=== PATIENT | female | born 1995 | race Caucasian/White ===

== ENCOUNTER → 2022-01-27 | Outpatient (CLI) | payer OTHER, SELFPAY ==
[2022-01-27 15:43] LABS: Absolute Lymphocyte Count 1.95 X10^3/uL (0.83-4.51); Basophil# 0.02 X10^3/uL; Basophil% 0.3 % (0-1); Eosinophil# 0.05 X10^3/uL; Eosinophils% 0.7 % (0-5); Hematocrit 38.3 % (37-47); Lymphocyte # 1.95 X10^3/ul (0.83-4.51); Lymphocyte % 25.8 % (19-41); Mean Corp Hgb Conc 33.9 g/dL (32-36); Mean Corpuscular Volume 88.2 fL (81-99); Mean Platelet Vol. 9.5 fl (6.2-12.0); Monocyte% 6.6 % (0-10); NRBC Flagged by Analyzer 0 % (0-5); Neutrophil # 5.01 X10^3/uL (2.7-7.7); Neutrophil % 66.3 % (47-70); Platelet Count 273 K/mm3 (150-450); RBC Distribution Width CV 13.6 % (11.6-14.6); RBC Distribution Width SD 44.2 fl (35.1-43.9); Red Blood Count 4.34 M/mm3 (4.2-5.4); White Blood Count 7.6 K/mm3 (4.4-11.0)
[2022-01-27 16:36] LABS: NATERA MAILED SPECIMEN
[2022-01-27 16:41] LABS: Amphetamine Urine VISTA NEGATIVE (<1000 ng/mL); Barbiturate Urine VISTA NEGATIVE (< 200 ng/mL); Benzodiazepine Urine VISTA NEGATIVE (< 200 ng/mL); Cocaine Urine VISTA NEGATIVE (< 300 ng/mL); Ecstacy Urine VISTA NEGATIVE (< 500 ng/mL); Methadone Urine VISTA NEGATIVE (< 300 ng/mL); PCP Urine VISTA NEGATIVE (< 25 ng/mL); THC Urine VISTA NEGATIVE (< 50 ng/mL); Vista UDS pH Range 7
[2022-01-27 16:53] LABS: HIV - WCH Non-Reactive (Nonreactive); Hepatitis B Surface Antigen Non-Reactive (Nonreactive); Hepatitis C Antibody Non-Reactive (Nonreactive); Rubella IgG Reactive (Nonreactive); Syphilis Antibodies Non-reactive
[2022-01-31 22:06] LABS: Chlamydia By Nucleic Acid AMP Negative (Negative)
[2022-02-01 15:12] LABS: Gonococcus By Nucleic Acid AMP Negative (Negative)
== END | disposition home or self-care (01) ==
PROVIDERS: PCP Internal Medicine; Referring Provider Obstetrics & Gynecology; Visit Provider Obstetrics & Gynecology
DX: Z34.90 Encounter for supervision of normal pregnancy, unspecified, unspecified trimester (principal)
CPT/HCPCS: 36415; 80307; 85025; 86703; 86762; 86780; 86803; 86850; 86900; 86901; 87086; 87340; 87491; 87591

== ENCOUNTER → 2022-05-20 | Outpatient (CLI) | payer OTHER, SELFPAY ==
[2022-05-20 15:41] LABS: Absolute Lymphocyte Count 1.57 X10^3/uL (0.83-4.51); Absolute Neutrophil Count 6.6 X10^3/uL (2.0-7.7); Basophil# 0.02 X10^3/uL; Basophil% 0.2 % (0-1); Eosinophil# 0.05 X10^3/uL; Eosinophils% 0.6 % (0-5); Hematocrit 34.6 % (37-47); Hemoglobin 11.7 g/dL (12.0-15.0); Lymphocyte # 1.57 X10^3/ul (0.83-4.51); Lymphocyte % 17.7 % (19-41); Mean Corp Hgb Conc 33.8 g/dL (32-36); Mean Corpuscular Hgb 30.5 pg (27.0-32.0); Mean Corpuscular Volume 90.3 fL (81-99); Mean Platelet Vol. 9.7 fl (6.2-12.0); Monocyte# 0.61 X10^3/uL; Monocyte% 6.9 % (0-10); NRBC Flagged by Analyzer 0 % (0-5); Neutrophil % 74.2 % (47-70); Platelet Count 250 K/mm3 (150-450); RBC Distribution Width CV 12.7 % (11.6-14.6); Red Blood Count 3.83 M/mm3 (4.2-5.4); White Blood Count 8.9 K/mm3 (4.4-11.0)
[2022-05-20 16:05] LABS: Glucose Challenge Gest 1H 50g 130 mg/dL (70-140)
[2022-05-20 16:14] LABS: Vitamin B12 204 pg/mL (211-911)
[2022-05-20 16:38] LABS: HIV - WCH Non-Reactive (Nonreactive); Syphilis Antibodies Non-reactive
[2022-05-20 17:10] LABS: Iron 157 ug/dL (50-170)
== END | disposition home or self-care (01) ==
LOC: LAB 15:03
PROVIDERS: Obstetrics & Gynecology; PCP Internal Medicine; Visit Provider Nurse Practitioner Women's Health
DX: Z34.90 Encounter for supervision of normal pregnancy, unspecified, unspecified trimester (principal)
CPT/HCPCS: 36415; 82607; 82950; 83540; 85025; 86703; 86780

== ENCOUNTER → 2022-07-27 | Outpatient (CLI) | payer OTHER, SELFPAY ==
--- NOTE | 2022-07-27 13:30 | US_ITS ---
STUDY: SECOND AND THIRD TRIMESTER OBSTETRICAL ULTRASOUND - LIMITED REASON FOR EXAM: Female, 27 years old routine survey, growth assessment LMP: 11/20/2021 PRIOR ULTRASOUND: None. TECHNIQUE: Transabdominal TECHNICAL QUALITY: Adequate. FINDINGS: There is a single intrauterine fetus. The fetus is in a cephalic presentation. There is demonstrated cardiac activity with a heart rate of 143 bpm. There is a normal amniotic fluid volume. The largest amniotic fluid pocket measures 3 x 3.9 cm. The amniotic fluid index (ANTONIO) is 10.47 cm. The placenta is anterior in location and is not low lying. There are Grade 1 placental changes. The cervix measures 3.3 cm in length. BIOMETRY: BPD: 9.29 cm: 37 weeks, 5 days HC: 32.59 cm: 37 weeks, 0 days AC: 30.94 cm: 34 weeks, 6 days FL: 6.95 cm: 35 weeks, 5 days age by current US: 36 weeks, 3 days. MORENA by current US: 08/21/2022. Estimated weight: 2751 grams, +/- 413 grams, 53 percentile. US/OB Limited With Biometrics IMPRESSION: Single live intrauterine at 36 weeks, 3 days by current ultrasound with MORENA of 08/21/2022. Heart rate 143 bpm. No suspicious sonographic findings Electronically Signed: Jimmie Young MD at 15:17 EDT ,
== END | disposition home or self-care (01) ==
LOC: US 13:29
PROVIDERS: PCP Internal Medicine; Referring Provider Advanced Practice Midwife; Visit Provider Advanced Practice Midwife
DX: O26.849 Uterine size-date discrepancy, unspecified trimester (principal)
CPT/HCPCS: 76816

== ENCOUNTER → 2022-08-03 | Outpatient (CLI) | payer OTHER, SELFPAY | END | disposition home or self-care (01) | LOC: LABSPEC 16:57 | PROVIDERS: PCP Internal Medicine; Visit Provider Obstetrics & Gynecology | DX: Z34.00 Encounter for supervision of normal first pregnancy, unspecified trimester (principal) | CPT/HCPCS: 87081 ==

== ENCOUNTER → 2022-08-23 | Outpatient (CLI) | payer OTHER, SELFPAY ==
--- NOTE | 2022-08-23 14:30 | US_ITS ---
EXAM: US , LIMITED CLINICAL INDICATION: fundal height low for dates TECHNIQUE: Real-time limited ultrasound of the maternal uterus with image documentation. This report was created using Everplans report generation technology. COMPARISON: None. FINDINGS: FETUS: There is an intrauterine gestation. GESTATIONAL AGE: Gestational age 39 weeks 3 days. MORENA: MORENA 08/27/2022. EFW: Estimated weight 3553 g. BPD: Biparietal diameter 9.5 cm age 38 weeks 5 days. HC: Head circumference 33.2 cm age 38 weeks 0 days. AC: Abdominal circumference 34.3 cm age 38 weeks 2 days. FL: Femur length 7.6 cm age 39 weeks 0 days. POSITION: The fetus is in the cephalic position. HEART RATE: heart rate 140 bpm. PLACENTA: The placenta is anterior. AMNIOTIC FLUID: ANTONIO measures 7.6 cm. CERVIX: The cervix was not visualized. US/OB Limited With Biometrics IMPRESSION: Intrauterine gestation with an average ultrasound age of 38 weeks 3 days and ultrasound estimated due date of 09/03/2022. heart rate is 140 bpm. Electronically Signed: Tashi Carter MD at 23:57 EDT ,
== END | disposition home or self-care (01) ==
LOC: US 14:28
PROVIDERS: PCP Internal Medicine; Referring Provider Obstetrics & Gynecology; Visit Provider Obstetrics & Gynecology
DX: O26.843 Uterine size-date discrepancy, third trimester (principal); Z3A.00 Weeks of gestation of pregnancy not specified
CPT/HCPCS: 76816

== ENCOUNTER 2022-08-31 05:53 | Inpatient (IN) | payer OTHER, SELFPAY ==
[2022-08-31] VITALS (44 sets, daily range): BP systolic 108–141; BP diastolic 52–87; PULSE 59–112; TEMP 36.3–37.3; O2SAT 89–100; BMI 28.1
[2022-08-31 05:52] LABS: ROM Internal Control Test YES-OK TO RESULT pt. (Internal QC); ROM Patient Test POSITIVE (Negative)
[2022-08-31] MEDS: Lactated Ringers 1,000 ML 50 ML IV (06:25)
[2022-08-31 06:42] LABS: Absolute Lymphocyte Count 1.64 X10^3/uL (0.83-4.51); Absolute Neutrophil Count 6.6 X10^3/uL (2.0-7.7); Basophil# 0.02 X10^3/uL; Basophil% 0.2 % (0-1); Eosinophil# 0.05 X10^3/uL; Eosinophils% 0.6 % (0-5); Hematocrit 35.5 % (37-47); Lymphocyte # 1.64 X10^3/ul (0.83-4.51); Lymphocyte % 18.1 % (19-41); Mean Corp Hgb Conc 33.8 g/dL (32-36); Mean Corpuscular Hgb 29.7 pg (27.0-32.0); Mean Corpuscular Volume 87.9 fL (81-99); Mean Platelet Vol. 11.2 fl (6.2-12.0); Monocyte# 0.69 X10^3/uL; Monocyte% 7.6 % (0-10); NRBC Flagged by Analyzer 0 % (0-5); Neutrophil % 72.9 % (47-70); Platelet Count 194 K/mm3 (150-450); RBC Distribution Width CV 12.6 % (11.6-14.6); RBC Distribution Width SD 40.9 fl (35.1-43.9); Red Blood Count 4.04 M/mm3 (4.2-5.4); White Blood Count 9.1 K/mm3 (4.4-11.0)
--- NOTE | 2022-08-31 08:11 | HP.PCM.OB_ITS ---
HPI - General General Date of Admission: 08/31/22 HPI Narrative MITZI SANTA, is a 27 y/o @ 40 weeks 4 days who presents to L&D after rupture of membranes at 2:30 am. She denies painful contractions currently. Nurses checked her cervix at 5:30 and she was 1 cm dilated and not micki. Maternal Data Information MORENA Calculator Estimated Delivery Date Method Current WG Current Estimate 08/27/22 LMP (Certain) 40w 4d PFSH PFSH Medical History History of vaccination against human papillomavirus Hx of ulcerative colitis MRSA infection Home Medications multivitamin no.47-iron fum 27 mg-folate no.1 1 mg-dha 300 mg capsule (PNV-DHA) 1 cap PO DAILY 01/21/22 [History Last Taken 08/30/22 08:00] vitamin B12 0.5 mg-folic acid 1 mg tablet 1 tab PO DAILY 08/31/22 [History Last Taken Unknown] Allergy/AdvReac Type Severity Reaction Status Date / Time No Known Allergies Allergy Verified 08/31/22 05:12 Family History Grandfather Colon cancer, Onset Age: 50 Paternal Grandmother Cancer uterine Surgical History History of colonoscopy Hx of wisdom tooth extraction Social History adopted: No household members: spouse housing: house current occupational status: employed current occupation: Teacher current occupational exposures/hazards: No pets and animals: Yes pets and animals: dog(s) history of recent travel: Yes (November) out of state: Yes out of country: No sexually active: Yes Smoking Status: Never smoker alcohol intake: former details: socially prior to substance use type: does not use well-balanced diet: daily or most days caffeine: No eating out: 1-3 times/week during the past year weight has: remained stable what type of physical activity do you participate in: walking, running and yoga frequency: daily daniel/buddhism: Lutheran seatbelt use: always do you feel safe at home: Yes additional social history: Spouse Meir- Marcus Dominique History 1 Elective abortions Hx Para 0 Spontaneous abortions Hx # Term Pregnancies Ectopic pregnancies Hx # Pregnancies Multiple births # of living children Visit Details Expected Delivery Route/Plan Labor Preferences- CB/BF classes: Today labor support person: Meir labor intervention preferences: [] pain management options preferred: epidural if needed cut cord/dad catch: cord : Yes PP control planned: discussed discussed possible routes of delivery and associated risks: [] special requests: [] Plans Covid status: discussed Flu vaccine: discussed Tdap vaccine: given Rhogam: NA LARC form signed: done movement and labor precautions reviewed. Problem list reviewed and updated with the most current plan of care details and appropriate orders placed. Relevant counseling for the gestational age provided. Continue routine care and follow up unless otherwise noted in visit notes/problem list details OB Flowsheet Initial Weight: Not Recorded Date -?-?-?-?-?-?-?-?-?-?-?-?- EGA Weight BP Urine Prot -?-?-?-?-?-?-?-?-?-?-?-?- Glucose FHR FuHt Pres Dilation -?-?-?-?-?-?-?-?-?-?-?-?- Effaced St Visit Note 01/27/22 -?-?-?-?-?-?-?-?-?-?--?-?- 9w 5d 148 lb 118/82 118/82 -?-?-?-?-?-?-?-?-?-?-?-?- 168 -?-?-?-?-?-?-?-?-?-?-?-?- SM- CRL 3cm cons with LMP 02/25/22 -?-?-?-?-?-?-?-?-?-?-?-?- 13w 6d 156 lb 108/64 Negative -?-?-?-?-?-?-?-?-?-?-?-?- Negative 150 -?-?-?-?-?-?-?-?-?-?-?-?- SM- no vb crampi ng 03/21/22 -?-?-?-?-?-?-?-?-?-?-?-?- 17w 2d 160 lb 110/68 Negative -?-?-?-?-?-?-?-?-?-?-?-?- Negative 144 -?-?-?-?-?-?-?-?-?-?-?-?- MH-No VB, crampi ng. Has had headache a couple of times mild. Enc fluids, rest, tylenol ok. Denies vision changes. Nausea resolved. 04/20/22 -?-?-?-?-?-?-?-?-?-?-?-?- 21w 4d 167 lb 104/62 Negative -?-?-?-?-?-?-?-?-?-?-?-?- Negative 146 -?-?-?-?-?-?-?-?-?-?-?-?- MH-No VB, LOF. N o FM/ant placenta. Nl anatomy US reviewed. 05/20/22 -?-?-?-?-?-?-?-?-?-?-?-?- 25w 6d 170 lb 8 oz 107/63 Nega tive -?-?-?-?-?-?-?-?-?-?-?-?- Negative 140 26 -?-?-?-?-?-?-?--?-?-?-?-?- SM- no vb lof go od fm no regular ctx 06/15/22 -?-?-?-?-?-?-?-?-?-?-?-?- 29w 4d 179 lb 8 oz 121/67 Nega tive -?-?-?-?-?-?-?-?-?-?-?-?- Negative 145 30 -?-?-?-?-?-?-?-?-?-?-?-?- JV- no lof, vagi nal bleeding, or cramping. tdap today 07/01/22 -?-?-?-?-?-?-?-?-?-?-?-?- 31w 6d 181 lb 106/69 Negative -?-?-?-?-?-?-?-?-?-?-?-?- Negative 155 31 -?-?-?-?-?-?-?-?-?-?-?-?- JV- no lof, vagi nal bleeding, or cramping. JV- no lof, vaginal bleeding , or cramping. has baby shower this weekend. 07/20/22 -?-?-?-?-?-?-?-?-?-?-?-?- 34w 4d 182 lb 8 oz 118/75 Nega tive -?-?-?-?-?-?-?-?-?-?-?-?- Negative 140 32 31 -?-?-?-?-?-?-?-?-?-?-?-?- KW-no LOF, VB, c tx. +FM KW-no LOF, VB, ctx. +FM. James wth US ordered 07/29/22 -?-?-?-?-?-?-?-?-?-?-?-?- 35w 6d 187 lb 130/78 Negative -?-?-?-?-?-?-?-?-?-?-?-?- Negative 143 33 Cephalic -?-?-?-?-?-?-?-?-?-?-?-?- JV- normal growt h scan. labor precautions discussed. 08/03/22 -?-?-?-?-?-?-?-?-?-?-?-?- 36w 4d 184 lb 6 oz 112/72 Nega tive -?-?-?-?-?-?-?-?-?-?-?-?- Negative 144 35 Cephalic 0 -?-?-?-?-?-?-?-?-?-?-?-?- 0 -4 JV- no lof , vaginal bleeding, or dec fm. GBS collected. 08/10/22 -?-?-?-?-?-?-?-?-?-?-?-?- 37w 4d 184 lb 4 oz 120/68 Nega tive -?-?-?-?-?-?-?-?-?-?-?-?- Negative 149 36 -?-?-?-?-?-?-?-?-?-?-?-?- MH-No VB, LOF. G ood FM. No CTX. 08/16/22 -?-?-?-?-?-?-?-?-?-?-?-?- 38w 3d 182 lb 4 oz 122/77 Nega tive -?-?-?-?-?-?-?-?-?-?-?-?- Negative 130 36 Cephalic -?-?-?-?-?-?-?-?-?-?-?-?- Sm- no vb lof go od fm no regular ctx discussed growth scan next week 08/24/22 -?-?-?-?-?-?-?-?-?-?-?-?- 39w 4d 185 lb 6 oz 130/83 Nega tive -?-?-?-?-?-?-?-?-?-?-?-?- Negative 135 36 Cephalic 0 -?-?-?-?-?-?-?-?-?-?-?-?- 50 -3 KW- no vb/ lof/ctx. +FM. increase in pelvic pressure. growth scan reviewed with pt. 3500+grams. labor precautions reviewed NST FHR Rate Baby A Baseline: 140 Variability:: Moderate Accelerations:: 15 x 15 FHR Category:: Category I ROS Constitutional Constitutional: Denies change in weight, fatigue, fever(s), headache(s), poor appetite or weakness Eyes Eyes: Denies blurry vision, change in vision, seeing flashes or spots in vision ENT HEENT: Denies dizziness, headache(s), loss taste/smell or sore throat Cardiovascular Cardiovascular: Denies chest pain, dizziness, dyspnea, irregular heart rhythm, leg edema, palpitations, rapid heart rate or vomiting Respiratory/Chest Respiratory/Chest: Denies chest tightness, cough, dyspnea or breast pain Gastrointestinal Gastrointestinal: Denies abdominal pain, anorexia, constipation, cramping, diarrhea, hemorrhoids, vomiting or weight changes Genitourinary Genitourinary: Denies dysuria, flank pain, genital lesions, genital pain, urinary frequency or urinary urgency Musculoskeletal Musculoskeletal: Denies back pain, difficulty walking, joint pain, limited range of motion, muscle cramps or numbness Integumentary Integumentary: Denies lesions or unusual bruising Neurologic Neurologic: Denies abnormal movements, abnormal speech, dizziness, numbness, seizure-like activity or syncope Psychiatric Psychiatric: Denies anxiety, behavioral changes, change in appetite, change in libido, cognitive impairment, confusion, depression, difficulty concentrating, hallucinations or suicidal thoughts Endocrine Endocrinology: Denies excessive sweating, polydipsia or polyuria Hematologic/Lymphatic Hematologic/Lymphatic: Denies easy bleeding, easy bruising or lymphadenopathy Allergic/Immunologic Allergic/Immunologic: Denies itchy eyes, lip swelling, seasonal rhinorrhea, rhinitis, throat swelling, tongue swelling, eczemia, wheezing or asthma Vital Signs Vital Signs Vital Signs: 08/31/22 05:05 08/31/22 05:06 08/31/22 05:06 Temperature 98.1 F Pulse Rate 63 Blood Pressure 131/71 H BP Systolic 131 BP Diastolic 71 Pulse Ox 08/31/22 05:05 08/31/22 07:21 08/31/22 07:21 Temperature Pulse Rate 59 L Blood Pressure 125/78 H BP Systolic 125 BP Diastolic 78 Pulse Ox 98 08/31/22 07:20 08/31/22 07:20 Temperature 98.2 F Pulse Rate Blood Pressure BP Systolic BP Diastolic Pulse Ox 99 Weight Weight: 190 lb 9.6 oz Body Mass Index (BMI) 28.1 Physical Exam Const alert, oriented x3, no apparent distress and healthy appearing General Appearance: cooperative; Negative for anxious HEENT normocephalic Face and Sinus: normal facial exam Eyes EOMs intact bilaterally and no scleral icterus General Eye: normal appearance of both eyes Neck full ROM and supple Lymph Lymphatic: no lymphadenopathy noted Chest Chest: abnormal inspection of the chest Resp normal respiratory effort Effort and Inspection: able to speak in complete sentences Cardio regular rate GI soft to palpation and non-tender Inspection: gravid Palpation: soft; Negative for tender external exam normal Amniotic Fluid: ROM+plus Back/Spine no CVA tenderness Extremity normal to inspection, full ROM and no clubbing, cyanosis or edema General Extremity: Negative for calf tenderness or edema Skin Lesions: no lesions Rashes: no rashes Psych mental status grossly normal Labs Labs Labs: Blood Type O POSITIVE Antibody Screen NEGATIVE Hct 35.5 % (37-47) L Hgb 12.0 g/dL (12.0-15.0) Obstetrics US Syphilis Total Ab Non-reactive Rubella IgG Antibody Reactive (Nonreactive) Hep Bs Antigen Non-Reactive (Nonreactive) Chlamydia DNA (BRITTANY) Negative (Negative) Neisseria gonorrhoeae DNA (BRITTANY) Negative (Negative) HIV 1&2 Antibody Non-Reactive (Nonreactive) Glucose 1 Hr 50 gm 130 mg/dL (70-140) Assessment & Plan (1) : QUALIFIERS: Weeks of gestation: 39 weeks Qualified Code(s): Z3A.39 - 39 weeks gestation of COMMENT: GBS Negative, NIPT low risk, discussed carrier testing. anatomy reviewed,nl. (2) Supervision of normal first : COMMENT: PRR , MORENA 08/27/22, surprise Spouse Meir (3) Ulcerative colitis: COMMENT: diagnosed in college resolved spontaneously, no rectal involvement, no meds. fu years later no abnormalities. b12 and iron levels checked. mfm consult at anatomy scan. (4) B12 deficiency: COMMENT: b12 replacement (5) Fundal height low for dates in third trimester: COMMENT: nl growth 07/27- repeat growth ordered next week, nl growth.
[2022-08-31 08:39] LABS: Syphilis Antibodies Non-reactive
[2022-08-31] MEDS: Oxytocin 15 Units/NS 250ml 15 UNITS/250 ML IV.SOLN 2 UNITS IV (09:45)
[2022-08-31] MEDS: LACTATED RINGERS 500 ML 999 ML IV (12:47)
[2022-08-31] MEDS: fentaNYL-bupivacaine (epidural) 100 ML BAG EPIDURAL (14:02)
--- NOTE | 2022-08-31 17:53 | OP.PCM_ITS ---
Assessment & Plan (1) : QUALIFIERS: Weeks of gestation: 39 weeks Qualified Code(s): Z3A.39 - 39 weeks gestation of COMMENT: GBS Negative, NIPT low risk, discussed carrier testing. anatomy reviewed,nl. (2) Supervision of normal first : COMMENT: PRR , MORENA 08/27/22, surprise Spouse Meir (3) Ulcerative colitis: COMMENT: diagnosed in [facility] resolved spontaneously, no rectal involvement, no meds. fu years later no abnormalities. b12 and iron levels checked. mfm consult at anatomy scan. (4) B12 deficiency: COMMENT: b12 replacement (5) Fundal height low for dates in third trimester: COMMENT: nl growth 07/27- repeat growth ordered next week, nl growth. (6) SROM (spontaneous rupture of membranes): Maternal Data Information MORENA Calculator Estimated Delivery Date Method Current WG Current Estimate 08/27/22 LMP (Certain) 40w 4d Final MORENA: 08/27/22 Final MORENA Source: LMP Vaginal Delivery Maternal Presentation Maternal Presentation: Spontaneous Rupture of Membranes Type of Induction: Pitocin Operative Information Date of Procedure: 08/31/22 Pre-Operative Diagnosis: 27 y/o @ 40 weeks with rupture of membranes Post-Operative Diagnosis: 27 y/o @ 40 weeks with rupture of membranes Type of Anesthesia: Epidural Drain: Katz to straight drain Estimated Blood Loss: 100cc Findings Description of Procedure: Patient began pushing and had a hard time delivering the head due to a tight vaginal band despite perineal massage, lubrication, and heated towel to the perineum. She pushed several times and the heart rate was showing some deep decelerations. She consented to a small right mediolateral episiotomy. a 2cm cut was performed, she pushed one more time and delivered the head in the ARANZA presentation. The head was delivered atraumatically. The anterior and posterior shoulders delivered without complication followed by the rest of the and the was placed on the maternal abdomen. Delayed cord clamping was employed for approximately 60 seconds. Cord was clamped and cut and gentle traction was applied to the cord and the placenta delivered spontaneously immediately following it was noted to be intact with three-vessel cord. The perineum and vagina were inspected and noted to have a 2nd degree perineal laceration, repaired with a 3-0 vicryl rapide . A rectal exam was performed due to the patient's history of ulcerative colitis and was found to be inact EBL was 100 cc. Patient and tolerated delivery well. Presentation: Vertex Amniotic Membrane Rupture Type: Spontaneous Amniotic Fluid Description: Clear Placental Delivery Description: Spontaneous Placenta Disposition: [facility] Cord Vessel Description: 3 Vessels Cord Entanglement: None Infant A Gender: Female (1 minute): 8 (5 minute): 9 Delayed Cord Clamping: Yes Post Vaginal Delivery Medications Given After Delivery: IV Pitocin Episiotomy Description: Right Mediolateral Laceration: 2nd degree Complication Complications: None Multi Select Codes Urinary/Genital Urinary/Genital CPT Codes: 27485 Vaginal Delivery [facility]
[2022-08-31] MEDS: Oxytocin 15 Units/NS 250ml 15 UNITS/250 ML IV.SOLN 83 UNITS IV (17:55)
--- NOTE | 2022-08-31 18:00 | DCINST_ITS ---
Discharge Instructions Diet Discharge Diet: No restrictions Activity Discharge Activity: Return to Normal Activity, May Not Drive (while taking narcotic pain medications.) and May Shower May resume sexual activity in: 4-6 weeks Dressing / Incision Call your doctor if your incision/area has: Continuous Slow Oozing, Sudden Increased Bleeding, Increased Pain/ Swelling, Increased Redness and Foul Smelling Discharge Follow Up Care Please Follow Up With: Tish Ramos DO When: Call [phone] to make an appointment with your doctor in 6 weeks. If you had elevated blood pressure or 4th degree laceration, you will need to be seen in 2 weeks. Test Results: Test results from this visit will be discussed in further detail at your follow- up appointment, if applicable. Discharge Plan Admission Admit Date/Time: 08/31/22 05:53 Attending Provider: Tish Ramos Primary Care Provider: Altagracia Wagner Discharge Orders/Prescriptions Prescriptions: No Action PNV-DHA 27 mg iron-1 mg -300 mg capsule 1 cap PO DAILY vitamin D34-gvapj acid 0.5-1 mg Tablet 1 tab PO DAILY Referrals / Follow Up: Altagracia Wagner DO [Primary Care Provider] -
[2022-08-31] MEDS: Acetaminophen 500 MG Tablet 1000 MG PO (19:54)
[2022-09-01 00:47] VITALS: BP 110/50; PULSE 83; RESP 15; TEMP 26.3; O2SAT 94
[2022-09-01 03:30] VITALS: BP 111/65; PULSE 72; RESP 15; TEMP 36.8; O2SAT 96
[2022-09-01] MEDS: Naproxen 500 MG Tablet PO ×2 (05:11→16:14)
[2022-09-01 07:46] VITALS: BP 114/62; PULSE 61; RESP 16; TEMP 36.6
--- NOTE | 2022-09-01 08:36 | PCM.PN.OB ---
Subjective Subjective Patient doing well without complaints. Tolerating PO. Ambulating and voiding without difficulty. Feeding well. Denies chest pain, shortness of breath, calf pain/swelling, fevers, chills, lightheadedness. Objective Data Objective Data Vital Signs: Vital Signs Temp Pulse Resp BP Pulse Ox O2 Del Method 97.9 F 61 16 114/62 96 Room Air 09/01/22 07:46 09/01/22 07:46 09/01/22 07:46 09/01/22 07:46 09/01/22 03:30 09/01/22 07:46 Oxygen Delivery Method Room Air Weight: 190 lb 9.6 oz Body Mass Index (BMI) 28.1 Intake & Output: Intake and Output for Last 24 Hours 08/30/22 08/31/22 09/01/22 23:59 23:59 23:59 Intake Total 3535.00 / 3535.00 Output Total 1900 / 1900 600 / 600 Balance 1635.00 / 1635.00 -600 / -600 Lab / Micro Data Result Diagrams: 08/31/22 06:25 Labs: Laboratory Results - last 24 hr 08/31/22 06:25: Syphilis Total Ab Non-reactive ROS Constitutional Constitutional: Denies chills, fatigue, fever(s), poor appetite or weakness Eyes Eyes: Denies blurry vision, change in vision, seeing flashes or spots in vision ENT HEENT: Denies dizziness, headache(s), loss taste/smell or sore throat Cardiovascular Cardiovascular: Denies chest pain, dizziness, dyspnea, irregular heart rhythm, palpitations or rapid heart rate Respiratory/Chest Respiratory/Chest: Denies chest tightness, cough, dyspnea or breast pain Gastrointestinal Gastrointestinal: Denies abdominal pain, constipation or vomiting Genitourinary Genitourinary: Denies dysuria or flank pain Musculoskeletal Musculoskeletal: Denies difficulty walking, joint pain, limited range of motion or numbness Neurologic Neurologic: Denies abnormal movements, abnormal speech, dizziness, numbness, seizure-like activity or syncope Psychiatric Psychiatric: Denies anxiety, behavioral changes, change in appetite, confusion, depression or suicidal thoughts Physical Exam Const alert, oriented x3 and no apparent distress General Appearance: cooperative and comfortable Resp normal respiratory effort Cardio regular rate GI normal to inspection, nondistended, normoactive bowel sounds GI Narrative: uterus is firm below umbilicus Palpation: soft Back/Spine no CVA tenderness and thoraco-lumbar ROM normal Extremity normal to inspection, no clubbing, cyanosis or edema, no calf tenderness and no pedal edema Psych mental status grossly normal, thought process normal, cooperative, affect normal, speech normal, activity/motor behavior normal, denies homicidal ideation and denies suicidal ideation Assessment & Plan (1) Status post vaginal delivery: COMMENT: baby girl Ean- JV PLAN: Plan s/p PPD # 1 1. routine post delivery care 2. breast feeding- support given 3. rh positive 4. rubella immune 5. plan for dc home later today or tomorrow am
[2022-09-01 10:33] VITALS: BP 109/59; PULSE 64; RESP 16; TEMP 36.6; O2SAT 97
--- NOTE | 2022-09-01 11:04 | NURSING ---
THIS NURSE AGREES WITH THE VITALS SIGNS PER HÉCTOR,STUDENT NURSE
[2022-09-01 15:51] VITALS: BP 101/57; PULSE 62; RESP 18; TEMP 36.4; O2SAT 96
[2022-09-01 19:22] VITALS: BP 118/64; PULSE 58; RESP 16; TEMP 36.4
[2022-09-01] MEDS: Acetaminophen 500 MG Tablet 1000 MG PO (19:48)
[2022-09-02 01:23] VITALS: BP 101/56; PULSE 78; RESP 15; TEMP 36.7; O2SAT 100
--- NOTE | 2022-09-02 08:42 | PCM.PN.OB ---
Subjective Subjective Patient doing well without complaints. Tolerating PO. Ambulating and voiding without difficulty. Feeding well. Denies chest pain, shortness of breath, calf pain/swelling, fevers, chills, lightheadedness. Objective Data Objective Data Vital Signs: Vital Signs Temp Pulse Resp BP Pulse Ox O2 Del Method 98.1 F 78 15 101/56 L 100 Room Air 09/02/22 01:23 09/02/22 01:23 09/02/22 01:23 09/02/22 01:23 09/02/22 01:23 09/02/22 01:23 Oxygen Delivery Method Room Air Weight: 190 lb 9.6 oz Body Mass Index (BMI) 28.1 Intake & Output: Intake and Output for Last 24 Hours 08/31/22 09/01/22 09/02/22 23:59 23:59 23:59 Intake Total 3535.00 / 3535.00 Output Total 1900 / 1900 600 / 600 Balance 1635.00 / 1635.00 -600 / -600 Lab / Micro Data Result Diagrams: 08/31/22 06:25 Physical Exam Const alert, oriented x3 and no apparent distress General Appearance: cooperative and comfortable Resp normal respiratory effort, normal air movement and no retractions Cardio regular rate and regular rhythm GI normal to inspection, nondistended, normoactive bowel sounds GI Narrative: uterus is firm below umbilicus Palpation: soft Back/Spine no CVA tenderness and thoraco-lumbar ROM normal Extremity normal to inspection, no clubbing, cyanosis or edema, no calf tenderness and no pedal edema Psych mental status grossly normal, thought process normal, cooperative, affect normal, speech normal, activity/motor behavior normal, denies homicidal ideation and denies suicidal ideation Assessment & Plan (1) Status post vaginal delivery: COMMENT: baby girl Ean- CODIE (2) SROM (spontaneous rupture of membranes): (3) : QUALIFIERS: Weeks of gestation: 39 weeks Qualified Code(s): Z3A.39 - 39 weeks gestation of COMMENT: GBS Negative, NIPT low risk, discussed carrier testing. anatomy reviewed,nl. (4) Supervision of normal first : COMMENT: PRR , MORENA 08/27/22, surprise Spouse Meir PLAN: Plan s/p PPD # 2 1. routine post delivery care 2. breast feeding- support given 3. rh positive 4. rubella immune
[2022-09-02 09:13] VITALS: BP 114/60; PULSE 62; RESP 16; TEMP 36.8; O2SAT 97
[2022-09-02] MEDS: Benzocaine/Lanolin/Aloe Vera 1 SPRAY EACH TOPICAL (09:34)
[2022-09-02] MEDS: Senna/Docusate Sodium 1 Tablet PO (10:04)
== END 2022-09-02 10:40 | disposition home or self-care (01) | DRG 807 ==
LOC: WPOUT 05:57 → WP 05:57
PROVIDERS: Advanced Practice Midwife; Admitting Provider Obstetrics & Gynecology; PCP Internal Medicine; Visit Provider Obstetrics & Gynecology
DX: O76 Abnormality in fetal heart rate and rhythm complicating labor and delivery (principal); Z37.0 Single live birth; E53.8 Deficiency of other specified B group vitamins; O42.92 Full-term premature rupture of membranes, unspecified as to length of time between rupture and onset of labor; O70.1 Second degree perineal laceration during delivery; Z3A.40 40 weeks gestation of pregnancy; O99.284 Endocrine, nutritional and metabolic diseases complicating childbirth; Z87.19 Personal history of other diseases of the digestive system
CPT/HCPCS: 59025; 59050; 84112; 85025; 86780; 86850; 86900; 86901; 99221; J7120; G0378

== ENCOUNTER → 2022-10-13 | Outpatient (CLI) | payer OTHER, SELFPAY ==
[2022-10-22 11:23] LABS: HPV Reflexed? NOT INDICATED
== END | disposition home or self-care (01) ==
LOC: LABSPEC 15:57
PROVIDERS: PCP Internal Medicine; Referring Provider Obstetrics & Gynecology; Visit Provider Obstetrics & Gynecology
DX: Z12.4 Encounter for screening for malignant neoplasm of cervix (principal)
CPT/HCPCS: 88175; G0145

== ENCOUNTER → 2023-07-18 | Outpatient (CLI) | payer OTHER, SELFPAY ==
--- NOTE | 2023-07-18 16:51 | CT_ITS ---
STUDY: CT ABDOMEN AND PELVIS WITH CONTRAST REASON FOR EXAM: Female, 28 years old. RLQ pain, looking for thickened colon wall that could indicate co RADIATION DOSAGE (If Supplied By Facility): CTDIvol = ( 9.54 ) mGy, DLP = ( 465.19 ) mGycm TECHNIQUE: Oral and amp; IV Readi-CAT and amp; 100mL Isovue-300 was administered. Transaxial images were obtained from the dome of the diaphragm to the symphysis pubis. Multiplanar coronal and sagittal images were reformatted. Individualized Dose Optimization Techniques Were Used For This CT. COMPARISON: No relevant prior comparison study available FINDINGS: The visualized lung bases are unremarkable. The visualized portions of the heart are within normal limits. Normal liver. Normal gallbladder and extrahepatic biliary system. Normal spleen. Normal pancreas. Normal bilateral adrenal glands. Normal visualized stomach. Normal small intestine. Fecal retention. No evidence of acute diverticulitis. The appendix is visualized and appears normal. Normal abdominal aorta. No retroperitoneal adenopathy. Bilateral extrarenal pelvis. No evidence of hydronephrosis. Normal urinary bladder. 2 cm left adnexal cyst/prominent follicle. Normal abdominal wall. Multiseptated cystic lesion in the right ilium close to the sacroiliac joints probably benign and may represent aneurysmal bone cyst or fibrous dysplasia. CT/Abdomen/Pelvis WITH Contrast IMPRESSION: 1. No focal acute inflammatory process. 2. Lytic lesion right ilium as described above probably benign. Further investigation with bone scan or MRI is recommended. Electronically Signed: Jose Kim MD at 10:34 EST ,
== END | disposition home or self-care (01) ==
LOC: CT 16:47
PROVIDERS: PCP Internal Medicine; Referring Provider Internal Medicine; Visit Provider Internal Medicine
DX: R10.31 Right lower quadrant pain (principal)
CPT/HCPCS: 74177; Q9967

== ENCOUNTER → 2023-08-16 | Outpatient (CLI) | payer OTHER, SELFPAY ==
[2023-08-24 22:06] LABS: Chlamydia By Nucleic Acid AMP Negative (Negative); Gonococcus By Nucleic Acid AMP Negative (Negative)
== END | disposition home or self-care (01) ==
LOC: LABSPEC 16:08
PROVIDERS: PCP Internal Medicine; Referring Provider Registered Nurse; Visit Provider Registered Nurse
DX: Z34.90 Encounter for supervision of normal pregnancy, unspecified, unspecified trimester (principal)
CPT/HCPCS: 87086; 87088; 87491; 87591

== ENCOUNTER → 2023-09-05 | Outpatient (CLI) | payer OTHER, SELFPAY ==
[2023-09-05 10:53] LABS: Absolute Lymphocyte Count 1.77 X10^3/uL (0.83-4.51); Absolute Neutrophil Count 4.4 X10^3/uL (2.0-7.7); Basophil# 0.02 X10^3/uL; Basophil% 0.3 % (0-1); Eosinophil# 0.05 X10^3/uL; Eosinophils% 0.7 % (0-5); Hematocrit 36.8 % (37-47); Hemoglobin 12.3 g/dL (12.0-15.0); Lymphocyte # 1.77 X10^3/ul (0.83-4.51); Lymphocyte % 26.1 % (19-41); Mean Corp Hgb Conc 33.4 g/dL (32-36); Mean Corpuscular Hgb 29.2 pg (27.0-32.0); Mean Corpuscular Volume 87.4 fL (81-99); Mean Platelet Vol. 9.9 fl (6.2-12.0); Monocyte% 7.4 % (0-10); NRBC Flagged by Analyzer 0 % (0-5); Neutrophil # 4.42 X10^3/uL (2.7-7.7); Neutrophil % 65.1 % (47-70); Platelet Count 251 K/mm3 (150-450); RBC Distribution Width CV 13.2 % (11.6-14.6); Red Blood Count 4.21 M/mm3 (4.2-5.4); White Blood Count 6.8 K/mm3 (4.4-11.0)
[2023-09-05 11:32] LABS: HIV - WCH Non-Reactive (Nonreactive); Hepatitis B Surface Antigen Non-Reactive (Nonreactive); Hepatitis C Antibody Non-Reactive (Nonreactive); Rubella IgG Reactive (Nonreactive); Syphilis Antibodies Non-reactive
== END | disposition home or self-care (01) ==
LOC: PAVLAB 10:05
PROVIDERS: PCP Internal Medicine; Referring Provider Registered Nurse; Visit Provider Registered Nurse
DX: Z34.90 Encounter for supervision of normal pregnancy, unspecified, unspecified trimester (principal)
CPT/HCPCS: 36415; 85025; 86703; 86762; 86780; 86803; 86850; 86900; 86901; 87340

== ENCOUNTER → 2023-12-26 | Outpatient (CLI) | payer OTHER, SELFPAY ==
[2023-12-26 14:36] LABS: Glucose Challenge Gest 1H 50g 133 mg/dL (70-140)
[2023-12-26 14:39] LABS: Absolute Lymphocyte Count 1.71 X10^3/uL (0.83-4.51); Absolute Neutrophil Count 6.3 X10^3/uL (2.0-7.7); Basophil# 0.02 X10^3/uL; Basophil% 0.2 % (0-1); Eosinophil# 0.08 X10^3/uL; Eosinophils% 0.9 % (0-5); Hematocrit 33.6 % (37-47); Hemoglobin 11.4 g/dL (12.0-15.0); Lymphocyte # 1.71 X10^3/ul (0.83-4.51); Mean Corp Hgb Conc 33.9 g/dL (32-36); Mean Corpuscular Hgb 29.8 pg (27.0-32.0); Mean Corpuscular Volume 87.7 fL (81-99); Mean Platelet Vol. 10.3 fl (6.2-12.0); Monocyte% 4.7 % (0-10); NRBC Flagged by Analyzer 0 % (0-5); Neutrophil % 73.7 % (47-70); Platelet Count 242 K/mm3 (150-450); RBC Distribution Width CV 13.2 % (11.6-14.6); RBC Distribution Width SD 42.3 fl (35.1-43.9); Red Blood Count 3.83 M/mm3 (4.2-5.4); White Blood Count 8.6 K/mm3 (4.4-11.0)
[2023-12-26 15:10] LABS: HIV - WCH Non-Reactive (Nonreactive); Syphilis Antibodies Non-reactive
== END | disposition home or self-care (01) ==
LOC: LAB 13:20
PROVIDERS: PCP Internal Medicine; Referring Provider Obstetrics & Gynecology; Visit Provider Obstetrics & Gynecology
DX: Z34.90 Encounter for supervision of normal pregnancy, unspecified, unspecified trimester (principal)
CPT/HCPCS: 36415; 82950; 85025; 86703; 86780

== ENCOUNTER → 2024-02-01 | Outpatient (CLI) | payer OTHER, SELFPAY ==
--- NOTE | 2024-02-01 17:58 | US_ITS ---
EXAM: US , LIMITED CLINICAL INDICATION: small for gestational age, h/o UC TECHNIQUE: Real-time limited ultrasound of the maternal uterus with image documentation. COMPARISON: No relevant prior studies available. FINDINGS: FETUS: Single intrauterine gestation. GESTATIONAL AGE: Composite gestational age is 33 weeks two days. MORENA: 03/19/2024. EFW: Estimated weight is 2075 g corresponding to the 46th percentile. BPD: 34 weeks four days. HC: 34 weeks zero days. AC: 32 weeks six days. FL: 31 weeks five days. POSITION: Breech presentation. HEART RATE: heart rate is 140 bpm. PLACENTA: Placenta is posterior without placenta previa. AMNIOTIC FLUID: Amniotic fluid index is 16.7 cm. CERVIX: Cervix not visualized. US/OB Limited With Biometrics IMPRESSION: Single intrauterine gestation approximately 33 weeks two days. No specific abnormalities. Electronically Signed: Juarez Coughlin MD at 4:59 EDT ,
== END | disposition home or self-care (01) ==
PROVIDERS: PCP Internal Medicine; Referring Provider Obstetrics & Gynecology; Visit Provider Obstetrics & Gynecology
DX: O36.5930 Maternal care for other known or suspected poor fetal growth, third trimester, not applicable or unspecified (principal); Z3A.33 33 weeks gestation of pregnancy; Z87.19 Personal history of other diseases of the digestive system
CPT/HCPCS: 76816

== ENCOUNTER → 2024-03-01 | Outpatient (CLI) | payer OTHER, SELFPAY | END | disposition home or self-care (01) | LOC: LABSPEC 13:09 | PROVIDERS: PCP Internal Medicine; Visit Provider Obstetrics & Gynecology | DX: Z34.92 Encounter for supervision of normal pregnancy, unspecified, second trimester (principal) | CPT/HCPCS: 87081 ==

== ENCOUNTER 2024-03-04 06:30 | Outpatient (CLI) | payer OTHER, SELFPAY ==
[2024-03-04 06:41] VITALS: BMI 25.9
--- OUTSIDE RECORDS SUMMARY | 2024-03-04 06:42 | XMS RPT_ITS | CCD ---
Author Organization [facility] Care Team Providers Care Senior Electronics Technician Name Role Phone EZEKIEL SHAHID Unavailable Unavailable NASREEN DELGADO Unavailable Unavailable NASREEN DELGADO MD Unavailable Unavailable DANNYNASREEN King Unavailable Unavailable Altagracia Wagner Unavailable Gravius, Bobbi Unavailable Unavailable Bernard DO Altagracia Unavailable Slarb MOLD YARD WORKER, Isabelle Unavailable Unavailable Gravius SPRINKLER REPAIR TECHNICIAN, Bobbi Unavailable Unavailable Bernard DO Altagracia Unavailable Madhav ISAAC, Nathalie Unavailable Unavailable Guillermina Fuller MD Unavailable Unavailable Unavailable Guillermina Fuller MD Unavailable TISH COLORADO Referring Unavailab TISH Dillard Attending Unavailab ALTAGRACIA Knutson Primary Care Unavailable Medications Completed/Discontinued Medications Medication Drug Class(es) Dates Sig (Normalized) Sig (Original) doxycycline hyclate 100 mg oral tablet (2 sources) Tetracycline-class Drug Start: 08-30-2021 take 2 tablets by mouth once Doxycycline Hyclate 100 MG Oral Tablet 2 (two) Tablet po once for lymes proph. for 0 days Quantity: 2 {Tablet} Refills: 0 Ordered: 30-Aug-2021 Guillermina Fuller MD Start : 30-Aug-2021 Active Levonorgestrel-Eth inyl Estrad 0.15-30 MG-MCG Oral Tablet (4 sources) Progestin, Estrogen, Progestin-containin g Intrauterine Device Start: 12-03-2020 End: 08-30-2021 take 1 tablet by mouth once daily Levonorgestrel-Et hinyl Estrad 0.15-30 MG-MCG Oral Tablet 1 Tablet daily for 30 days Quantity: 1 {Packet} Refills: 6 Ordered: 30-Aug-2021 Nathalie Corey LPN Start : 03-Dec-2020 End : 30-Aug-2021 Inactive Start: 12-03-2020 take 1 tablet by jerson th once daily Levonorgestrel-Ethinyl Estrad 0.15-30 MG-MCG Oral Tablet 1 Tablet daily for 30 days Quantity: 1 {Packet} Refills: 6 Ordered: 03-Dec-2020 Bernard ORTEZ Altagracia Wheat DO Start : 03-Dec-2020 Active take 1 tablet by jerson th once daily Levonorgestrel-Ethinyl Estrad 0.15-30 MG-MCG Oral Tablet 1 daily (0.15-30 MG-MCG) Active Problems Active Problems Problem Classification Problem Date Documented Date Episodic/Chronic E Codes: Natural/environment (4 sources) Tick bite; Translations: [Tick bite] 08-30-2021 Episodic Immunizations and screening for infectious disease (5 sources) Patient encounter status; Translations: [Screening for HPV (human papillomavirus) (Renamed from Encounter for screening for human papillomavirus (HPV))] 03-12-2021 Episodic Residual codes; unclassified (9 sources) Body mass index 20-24 - normal; Translations: [BMI 22.0-22.9, adult] 03-12-2021 Episodic Residual codes; unclassified (5 sources) Influenza vaccination declined; Translations: [Influenza vaccination declined (Renamed from Refused influenza vaccine)] 03-12-2021 Episodic Residual codes; unclassified (12 sources) Non-smoker; Translations: [Nonsmoker] 03-12-2021 Episodic Residual codes; unclassified (5 sources) Uses contraception; Translations: [Uses control] 03-12-2021 Episodic Superficial injury; contusion (4 sources) Infected insect bite; Translations: [Infected insect bite of ear] 09-16-2021 Episodic Unclassified (1 source) Encounter for screening for malignant neoplasm of cervix / Z12.4(ICD-10) Onset: 10-17-2017 Unclassified (3 sources) Hemorrhage of anus and rectum / K62.5(ICD-10) Onset: 04-07-2017 Unclassified (1 source) Ulcerative colitis, unspecified, without complications / K51.90(ICD-10) Onset: 04-07-2017 Past or Other Problems Problem Classification Problem Date Documented Date Episodic/Chronic Unclassified (1 source) Encounter for screening for malignant neoplasm of cervix; Translations: [Encounter for screening for malignant neoplasm of cervix] Onset: 10-17-2017 Unclassified (1 source) Hemorrhage of anus and rectum; Translations: [Hemorrhage of anus and rectum] Onset: 04-07-2017 Unclassified (4 sources) Body mass index 20-24 - normal; Translations: [BMI 22.0-22.9, adult] 06-01-2020 Unclassified (3 sources) Patient encounter status; Translations: [Encntr for general adult medical exam w/o abnormal findings] 06-01-2020 Unclassified (3 sources) Non-smoker; Translations: [Non-smoker] 06-01-2020 Unclassified (4 sources) Pregnancies (); Translations: [Pregnancies ()] 06-01-2020 Comment on above: 0. Unclassified (9 sources) Unclassified (1 source) Well woman exam (Renamed from Encounter for well woman exam) Unclassified (1 source) Nonsmoker Unclassified (1 source) Screening for HPV (human papillomavirus) (Renamed from Encounter for screening for human papillomavirus (HPV)) Unclassified (1 source) Influenza vaccination declined (Renamed from Refused influenza vaccine) Unclassified (1 source) Uses control Results Test Name Value Interpretation Reference Range Facility HPV automatic (41495)Ordered By: Career Advisor on 03-15-2021 HPV automatic (35617) [facility] Normal [facility]; [facility] Work Phone: Comment on above: NEGATIVE FOR INTRAEPITHELIAL LESION OR M ALIGNANCY.Satisfactory for evaluation. Endocervical and/or squamous metaplasticcells (endocervical component) are present.Z11.51Carol Castillo Rat Exterminator (ASCP) Source.............C ervix;EndocervixNo. of containers..01 ThinPrep VialPATIENT NOT FASTINGPERFORMED BY: WB [facility] [address] [place] [address] W [id number] BY: =G [facility] Twwhgegjof258 [facility] W [id number] Information: [id number] HPV automatic ([id number]) . Normal [facility]; [facility] Work Phone: Comment on above: Source.............Cervix;EndocervixNo. of containers..01 ThinPrep VialPATIENT NOT FASTINGPERFORMED BY: NVELO [address]st[address] [id number] BY: =G [facility] J[address]cnk[address] [id number] Information: [id number] HPV automatic (63036) [facility] Normal [facility]; [facility] Work Phone: Comment on above: The Pap smear is a screening test design ed to aid in the detection ofpremalignant and malignant conditions of the uterine cervix. It is not adiagnostic procedure and should not be used as the sole means of detectingcervical cancer. Both false-positive and false-negative reports do occur. .This liquid based ThinPrep(R) pap test was screened with theuse of an image guided system. Source.............C ervix;EndocervixNo. of containers..01 ThinPrep VialPATIENT NOT FASTINGPERFORMED BY: Appinions[address] [id number] BY: =G NVELO [address] [id number] Information: [id number] HPV automatic (47771) Negative Normal [facility]; [facility] Work Phone: Comment on above: This nucleic acid amplification test det ects fourteen high-riskHPV types (16,18,31,33,35,39,45,51,52,56,58,59,66,68) withoutdifferentiation. Source.............C ervix;EndocervixNo. of containers..01 ThinPrep VialPATIENT NOT FASTINGPERFORMED BY: [facility] Hkxcqvoyyf943 [facility] [id number] BY: =G [facility] Nlfpvpvhek749 [place] [facility] [id number] Information: [id number] [facility] Office Visit (UCWSTR ) MITZI BARROW ([id number]) 1995 F Date Time Provider Department 07/17/18 5:15 PM SHEREEN CHRISTIANSON) [facility] During your visit today, we recorded the following information about you: Temperature Pulse Respiration Blood pressure 98.4 degrees 60/minute 16/minute 120/62 Weight Last Period 66.2 kg 06/26/18 Shereen Christianson PA-C 07/17/2018 5:40 PM Signed 07/17/2018 Patient presents with: Derm Problem: nose tender and stinging, white pimples inside nose x 1 month SUBJECTIVE: This is a 23 year old that is here today for Complaint(s) of soreness in the nose x 1 month. Started with cold sx, which have since resolved. Thinks she may have pimples in the nose. Still having a burning/stining. Mostly on the inside. Denies fever/chills . No past medical history on file. ALLERGIES Patient has no known allergies. MEDICATIONS No current outpatient medications on file. No current facility-administered medications for this visit. SOCIAL HISTORY Social History Socioeconomic History Marital status: Single Spouse name: Not on file Number of children: Not on file Years of education: Not on file Highest education level: Not on file Social Needs Financial resource strain: Not on file Food insecurity - worry: Not on file Food insecurity - inability: Not on file Transportation needs - medical: Not on file Transportation needs - non-medical: Not on file Occupational History Not on file Tobacco Use Smoking status: Never Smoker Smokeless tobacco: Never Used Substance and Sexual Activity Alcohol use: Not on file Drug use: Not on file Sexual activity: Not on file Other Topics Concerns: Not on file Social History Narrative Not on file REVIEW OF SYSTEMS See HPI OBJECTIVE: BP 120/62 Pulse 60 Temp 36.9 ?C (98.4 ?F) (Tympanic) Resp 16 Wt 66.2 kg (146 lb) LMP 06/26/2018 APPEARANCE Well appearing, alert, in no acute distress, well-hydrated, well nourished. NOSE/SINUS Nares normal. Septum midline. Mucosa erythematous. + shallow pale ulcerative area noted along septum. + folliculitis noted on left nare. No fluctuance. No drainage or sinus tenderness. Similar are on right septum, + honey colored crusting noted. THROAT normal, no erythema NECK Supple, no adenopathy; thyroid symmetric, normal size, no bruits ASSESSMENT/PLAN: 1. Sore in nose - ICD9: 478.19, ICD10: J34.89 - Will begin treatment with as per antibiotic as written, see orders - Follow up in 3-5 days if symptoms persist or worsen. - MUPIROCIN 2 % TOPICAL OINTMENT - HSV 1,2/VZV AMP MOLECULAR DETECT The patient indicates understanding of these issues and agrees with the plan. Reviewed red flags and when to seek care sooner. Shereen Christianson PA-C Referring Provider: SELF [200] Allergies As of Date: 07/17/2018 (No Known Allergies) Date Reviewed: 07/17/2018 Reviewed by: Deyanira Saleem Ma - Fully Assessed Reason for Visit: Derm Problem [33] Cmt: nose tender and stinging, white pimples inside nose x 1 month Primary Visit Diagnosis:Sore in nose [J34.89] Order(s):mupirocin (BACTROBAN) 2 % ointmentApply 1 application to affected area three times daily. Location: nasalDisp: 1 TubeRfl: 0 HSV 1,2/VZV AMP MOLECULAR DETECT [SQHSVVZV] Order #: [id number] FUTURE Prescriptions as of 07/17/2018 Sig: MUPIROCIN 2 % TOPICAL OINTMENT Apply 1 application to affect* Problem List As Of Date: 07/17/2018 (None) Prescriptions ordered this encounter Disp Refills Start End MUPIROCIN 2 % TOPICAL OINTMENT 1 Tu* 0 07/17/2018 Route: TOPICAL Sig: Apply 1 application to affected area three times daily. Location: nasal Encounter Status:Closed by SHEREEN CHRISTIANSON PA-C on 07/17/18 Normal [facility] HSV1,2/VZV Amplifon 07-18-19 19 HSV Type 1, HDA Negative for Herpes Simplex virus Type 1 by Molecular Detection. Normal [facility] Comment on above: Performed By: #### HSVVZV #### [facility] [address] [address] HSV Type 2, HDA Negative for Herpes Simplex virus Type 2 by Molecular Detection. Normal [facility] Comment on above: Performed By: #### HSVVZV #### [id number] [address] Specimen source Nom (Unsp spec) Lesion Normal [facility] Comment on above: Performed By: #### HSVVZV #### [id number] [place] [address] V Zoster Virus, HDA Negative for Varicella Zoster virus by Molecular Detection. Normal [facility] Comment on above: Performed By: #### HSVVZV #### [id number] [address] PROGRESSon 07-17-2018 Protein mass conc HNO ID: [id number] Author: Shereen Christianson Service: ? Author Type: Physician Apartment Rental Clerk Type: Progress Notes Filed: 07/17/2018 5:40 PM Note Text: 07/17/2018 Patient presents with: Derm Problem: nose tender and stinging, white pimples inside nose x 1 month SUBJECTIVE: This is a 23 year old that is here today for Complaint(s) of soreness in the nose x 1 month. Started with cold sx, which have since resolved. Thinks she may have pimples in the nose. Still having a burning/stining. Mostly on the inside. Denies fever/chills . No past medical history on file. ALLERGIES Patient has no known allergies. MEDICATIONS No current outpatient medications on file. No current facility-administered medications for this visit. SOCIAL HISTORY Social History Socioeconomic History Marital status: Single Spouse name: Not on file Number of children: Not on file Years of education: Not on file Highest education level: Not on file Social Needs Financial resource strain: Not on file Food insecurity - worry: Not on file Food insecurity - inability: Not on file Transportation needs - medical: Not on file Transportation needs - non-medical: Not on file Occupational History Not on file Tobacco Use Smoking status: Never Smoker Smokeless tobacco: Never Used Substance and Sexual Activity Alcohol use: Not on file Drug use: Not on file Sexual activity: Not on file Other Topics Concerns: Not on file Social History Narrative Not on file REVIEW OF SYSTEMS See HPI OBJECTIVE: BP 120/62 Pulse 60 Temp 36.9 ?C (98.4 ?F) (Tympanic) Resp 16 Wt 66.2 kg (146 lb) LMP 06/26/2018 APPEARANCE Well appearing, alert, in no acute distress, well-hydrated, well nourished. NOSE/SINUS Nares normal. Septum midline. Mucosa erythematous. + shallow pale ulcerative area noted along septum. + folliculitis noted on left nare. No fluctuance. No drainage or sinus tenderness. Similar are on right septum, + honey colored crusting noted. THROAT normal, no erythema NECK Supple, no adenopathy; thyroid symmetric, normal size, no bruits ASSESSMENT/PLAN: 1. Sore in nose - ICD9: 478.19, ICD10: J34.89 - Will begin treatment with as per antibiotic as written, see orders - Follow up in 3-5 days if symptoms persist or worsen. - MUPIROCIN 2 % TOPICAL OINTMENT - HSV 1,2/VZV AMP MOLECULAR DETECT The patient indicates understanding of these issues and agrees with the plan. Reviewed red flags and when to seek care sooner. Shereen Christianson PA-C Normal [facility] Liquid PAPon 10-17-2017 Liquid PAP [facility] Rec. #: [id number] CYTOLOGIC DIAGNOSISSPECIMEN ADEQUACY:Satisfactory for evaluation.Endocervica l transformation zone component present.GENERAL CATEGORIZATION:Negativ e for intraepithelial lesion or malignancy.See interpretation-result. INTERPRETATION/RESULT: Negative for intraepithelial lesion or malignancy.The above diagnosis was rendered at [facility] [employer] [address] [place] [address], CLIA number [id number].This information is included on the report as part of a CLIArequirement.Hiwot ctronically Signed Out By ANAY FRANCO ([facility])10/28/2017 Clinical HistoryDate of Last Menstrual Period: 09/25/17Clinical Conditions:Normal ExamReflex High Risk HPV Testing If ASCUSThe Pap test is only a screening test for cervical cancer. As with allscreening tests, false-negative results can occur, emphasizing the needfor ongoing surveillance and clinical correlation. If there are anyquestions about the results of this screening test, please call thepathology laboratory. [facility] Comment on above: Performed By: #### [id number] [address] [address] [place] [address] Vital Signs Date Time Vital Sign Value Performing Clinician Facility 08-30-2021 15:13-0400 Body height 172.72 cm Nathalie Corey [facility] Work Phone: 08-30-2021 15:13-0400 Body mass index (BMI) [Ratio] 21.29 kg/m2 Nathalie Corey [facility] Work Phone: 08-30-2021 15:13-0400 Body surface area Derived from formula 1.76 m2 Nathalie Corey MOLD YARD WORKER [facility] Work Phone: 08-30-2021 15:13-0400 Body weight 63.5 kg Nathalie Corey MOLD YARD WORKER [facility] Work Phone: 03-12-2021 15:19-0400 Body height 172.72 cm Isabelle Hartley MOLD YARD WORKER [facility] Work Phone: 03-12-2021 15:19-0400 Body mass index (BMI) [Ratio] 22.35 kg/m2 Isabelle Resendizrb [facility] Work Phone: 03-12-2021 15:19-0400 Body surface area Derived from formula 1.79 m2 Isabelle Resendizrb MOLD YARD WORKER [facility] Work Phone: 03-12-2021 15:19-0400 Body temperature 97.3 [degF] Isabelle Martínrb MOLD YARD WORKER [facility]; [facility] Work Phone: 03-12-2021 15:19-0400 Body weight 66.68 kg Isabelle Resendizrb MOLD YARD WORKER [facility] Work Phone: 03-12-2021 15:19-0400 Diastolic blood pressure 62 mm[Hg] Isabelle Slarb MOLD YARD WORKER [facility]; [facility] Work Phone: Comment on above: Patient Position: Sitting; Cuff Location : Left Arm; Cuff Size: Standard 03-12-2021 15:19-0400 Heart rate 99 /min Isabelle Slarb MOLD YARD WORKER [facility] Work Phone: Comment on above: Pattern: Regular 03-12-2021 15:19-0400 Respiratory rate 16 /min Isabelle Martínrb MOLD YARD WORKER [facility] Work Phone: Comment on above: Pattern: Unlabored 03-12-2021 15:19-0400 SaO2% (BldA) [Mass fraction] 54 % Isabelle Slarb MOLD YARD WORKER [facility] Work Phone: Comment on above: Room air 03-12-2021 15:19-0400 Systolic blood pressure 112 mm[Hg] Isabelle Slarb MOLD YARD WORKER [facility] Work Phone: Comment on above: Patient Position: Sitting; Cuff Location : Left Arm; Cuff Size: Standard 06-01-2020 10:09-0500 BMI (Body Mass Index) 22.05 kg/m2 Bobbi Gravius [facility] Work Phone: Comment on above: no vs taken as this is phone encounter d ue to covid 06-01-2020 10:09-0500 Body weight 65.77 kg Bobbi Gonzalezius [facility] Work Phone: Comment on above: no vs taken as this is phone encounter d ue to covid 06-01-2020 10:090500 BSA (Body Surface Area) 1.78 m2 Bobbi Sykes [facility] Work Phone: Comment on above: no vs taken as this is phone encounter d ue to covid 06-01-2020 10:0500 Height 172.72 cm Bobbi Sykes [facility] Work Phone: Comment on above: no vs taken as this is phone encounter d ue to covid Encounters Encounter Date Encounter Type Care Provider Facility Start: 11-07-2023 End: 11-07-2023 ambulatory TISH COLORADO [facility] Start: 09-16-2021 End: 09-16-2021 Phone Encounter Altagracia Holdenon DO Work Phone: [facility] Start: 08-30-2021 End: 08-30-2021 Office outpatient visit 10 minutes Altagracia Bernard DO Work Phone: [facility] Start: 03-12-2021 End: 03-12-2021 Patient encounter procedure Isabelle Hartley LPN [facility] Work Phone: Start: 03-12-2021 End: 03-12-2021 Periodic preventive med est patient 18-39 yrs Altagracia Holdenon DO Work Phone: [facility] Start: 12-03-2020 End: 12-03-2020 Phone Encounter Altagracia Bernard DO Work Phone: [facility] Start: 06-01-2020 End: 06-01-2020 Initial preventive medicine new pt age 18-39yrs Altagracia Holdenon [facility] Start: 06-01-2020 End: 06-01-2020 Patient encounter status Altagracia Holdenon DO Work Phone: [facility] Start: 07-17-2018 End: 07-19-2018 Patient encounter procedure [facility] Start: 10-17-2017 Ambulatory NASREEN DELGADO Facility: UNKNOWN Start: 04-07-2017 End: 04-07-2017 Ambulatory EZEKIEL SHAHID Facility:UNKNOWN Patient encounter procedure Nathalie Corey MOLD YARD WORKER [facility] Work Phone: Patient encounter status Isabelle Hartley MOLD YARD WORKER [facility] Work Phone: Patient encounter status Nathalie Corey MOLD YARD WORKER [facility] Work Phone: Procedures Date Procedure Procedure Detail Performing Clinician Start: 08-24-2022 End: 08-24-2022 Adhesive Bandage Machine Operator Office Visit Report Procedure Note: See Note; NOTES: [facility] [address] [place], [place] [address] OFFICE VISIT Date of Service: 08/24/22 MR#: [id number] Acct: [id number] Name: MITZI SANTA Rep #: [id number] 5 : 1995 Provider: ROXANA Scott ams Age/Sex: 27/F Location: [facility] Status: Signed Intake Vital Signs 08/24/22 14:18 08/24/22 14:18 Height 5 ft 9 in 5 ft 9 in Weight: 185 lb 6 oz BMI 27.3 BP 130/83 H Intake Visit Reasons: 40 WK OB Paperboard Box Maker Required: No Is patient in pain?: No Allergies No Known Allergies Allergy (Verified 08/24/22 14:18) Medications multivitamin no.47-iron fum 27 mg-folate no.1 1 mg-dha 300 mg capsule (PNV-DHA) cap PO 01/21/22 [History Confirmed 08/24/22] Last Menstrual Period: 11/20/21 Zika: Zika virus screening: Negative : No PFSH PFSH Medical History History of vaccination against human papillomavirus Hx of ulcerative colitis Surgical History History of colonoscopy Hx of wisdom tooth extraction Family History Grandfather Colon cancer, Onset Age: 50 Paternal Grandmother Cancer uterine Social History adopted: No household members: spouse housing: house current occupational status: employed current occupation: Teacher current occupational exposures/hazards: No pets and animals: Yes pets and animals: dog(s) history of recent travel: Yes (November) out of state: Yes out of country: No sexually active: Yes Smoking Status: Never smoker alcohol intake: former details: socially prior to substance use type: does not use well-balanced diet: daily or most days caffeine: No eating out: 1-3 times/week during the past year weight has: remained stable what type of physical activity do you participate in: walking, running and yoga frequency: daily daniel/jew: Quaker seatbelt use: always do you feel safe at home: Yes additional social history: Spouse Erendira Dominique History 1 Elective abortions Hx Para 0 Spontaneous abortions Hx # Term Pregnancies Ectopic pregnancies Hx # Pregnancies Multiple births # of living children HPI 40 WK OB Details: MITZI SANTA is a 27 year old who presents for routine OB visit no complaints. OB Visit MORENA Calculator Estimated Delivery Date Method Current WG Current Estimate 08/27/22 LMP (Certain) 39w 4d Expected Delivery Route/Plan Labor Preferences- CB/BF classes: Today labor support person: Meir labor intervention preferences: [] pain management options preferred: epidural if needed cut cord/dad catch: cord : Yes PP control planned: discussed discussed possible routes of delivery and associated risks: [] special requests: [] Specific Issue/Plans Covid status: discussed Flu vaccine: discussed Tdap vaccine: given Rhogam: NA LARC form signed: done movement and labor precautions reviewed. Problem list reviewed and updated with the most current plan of care details and appropriate orders placed. Relevant counseling for the gestational age provided. Continue routine care and follow up unless otherwise noted in visit notes/problem list details Initial Weight: Not Recorded Date -???-???-???-???-???-???-???- ???-???-???-???-???- EGA Weight BP Urine Prot -???-???-???-???-???-???-???- ???-???-???-???-???- Glucose FHR FuHt Pres Dilation -???-???-???-???-???-???-???- ???-???-???-???-???- Effaced St Visit Note 01/27/22 -???-???-???-???-???-???-???- ???-???-???-???-???- 9w 5d 148 lb 118/82 118/82 -???-???-???-???-???-???-???- ???-???-???-???-???- 168 -???-???-???-???-???-???-???- ???-???-???-???-???- SM- CRL 3cm cons with LMP 02/25/22 -???-???-???-???-???-???-???- ???-???-???-???-???- 13w 6d 156 lb 108/64 Negative -???-???-???-???-???-???-???- ???-???-???-???-???- Negative 150 -???-???-???-???-???-???-???- ???-???-???-???-???- SM- no vb cr amping 03/21/22 -???-???-???-???-???-???-???- ???-???-???-???-???- 17w 2d 160 lb 110/68 Negative -???-???-???-???-???-???-???- ???-???-???-???-???- Negative 144 -???-???-???-???-???-???-???- ???-???-???-???-???- -No VB, cr amping. Has had headache a couple of times mild . Enc fluids, rest, tylenol ok. Denies vision changes. Nausea resolved. 04/20/22 -???-???-???-???-???-???-???- ???-???-???-???-???- 21w 4d 167 lb 104/62 Negative -???-???-???-???-???-???-???- ???-???-???-???-???- Negative 146 -???-???-???-???-???-???-???- ???-???-???-???-???- -No VB, LO F. No FM/ant placenta. Nl anatomy US reviewed. 05/20/22 -???-???-???-???-???-???-???- ???-???-???-???-???- 25w 6d 170 lb 8 oz 107/63 Negative -???-???-???-???-???-???-???- ???-???-???-???-???- Negative 140 26 -???-???-???-???-???-???-???- ???-???-???-???-???- - no vb lo f good fm no regular ctx 06/15/22 -???-???-???-???-???-???-???- ???-???-???-???-???- 29w 4d 179 lb 8 oz 121/67 Negative -???-???-???-???-???-???-???- ???-???-???-???-???- Negative 145 30 -???-???-???-???-???-???-???- ???-???-???-???-???- JV- no lof, vaginal bleeding, or cramping. tdap today 07/01/22 -???-???-???-???-???-???-???- ???-???-???-???-???- 31w 6d 181 lb 106/69 Negative -???-???-???-???-???-???-???- ???-???-???-???-???- Negative 155 31 -???-???-???-???-???-???-???- ???-???-???-???-???- JV- no lof, vaginal bleeding, or cramping. JV- no lof, vaginal bleeding, or c ramping. has baby shower this weekend. 07/20/22 -???-???-???-???-???-???-???- ???-???-???-???-???- 34w 4d 182 lb 8 oz 118/75 Negative -???-???-???-???-???-???-???- ???-???-???-???-???- Negative 140 32 31 -???-???-???-???-???-???-???- ???-???-???-???-???- KW-no LOF, V B, ctx. +FM KW-no LOF, VB, ctx. +FM. Growth US ordered 07/29/22 -???-???-???-???-???-???-???- ???-???-???-???-???- 35w 6d 187 lb 130/78 Negative -???-???-???-???-???-???-???- ???-???-???-???-???- Negative 143 33 Cephalic -???-???-???-???-???-???-???- ???-???-???-???-???- JV- normal g rowth scan. labor precautions discussed. 08/03/22 -???-???-???-???-???-???-???- ???-???-???-???-???- 36w 4d 184 lb 6 oz 112/72 Negative -???-???-???-???-???-???-???- ???-???-???-???-???- Negative 144 35 Cephalic 0 -???-???-???-???-???-???-???- ???-???-???-???-???- 0 -4 JV- no lof , vaginal bleeding, or dec fm. GBS collected. 08/10/22 -???-???-???-???-???-???-???- ???-???-???-???-???- 37w 4d 184 lb 4 oz 120/68 Negative -???-???-???-???-???-???-???- ???-???-???-???-???- Negative 149 36 -???-???-???-???-???-???-???- ???-???-???-???-???- -No VB, LO F. Good FM. No CTX. 08/16/22 -???-???-???-???-???-???-???- ???-???-???-???-???- 38w 3d 182 lb 4 oz 122/77 Negative -???-???-???-???-???-???-???- ???-???-???-???-???- Negative 130 36 Cephalic -???-???-???-???-???-???-???- ???-???-???-???-???- - no vb lo f good fm no regular ctx discussed growth scan next week 08/24/22 -???-???-???-???-???-???-???- ???-???-???-???-???- 39w 4d 185 lb 6 oz 130/83 Negative -???-???-???-???-???-???-???- ???-???-???-???-???- Negative 135 36 Cephalic 0 -???-???-???-???-???-???-???- ???-???-???-???-???- 50 -3 KW- no vb/ lof/ctx. +FM. increase in pelvic pressure. growth scan reviewed with pt. 3500+grams. labor precautions reviewed ACOG First Trimester First Trimester: Desire for , Alcohol, Tobacco Cessation, Illicit/Recreational Drug/Substance Use, Intimate Partner Violence, Barriers to care, Unstable Housing, Communication Barriers, Environmental/Work Hazards, Anticipated Course of Care, Toxoplasmosis Precations, Use of Any medications, Sexual activity, Exercise, Dental Care, Sauna/Hot tub use, Seat Belt use, Childbirth classes/Hospital facilities, , Travel, Indications for Ultrasound and Screening for Aneuploidy Second Trimester Second Trimester: Signs and Symptoms of Labor, Selecting a care provider, Reproductive Life Planning Contreception, Care Planning, Depression/Anxiety and Intimate Partner Violence; Discussed Tobacco Cessation Third Trimester Third Trimester: Pain Management Plans, Labor support person(s), Immediate Larc, Circumcision preference, Movement Monitoring, Signs and Symptoms of Preeclampsia, Labor Signs, Education, Depression and Depression; Discussed Trial of Labor after Counseling and Discussed Tobacco Cessation Diagnostics Diagnostics Diagnostics: Glucose 1 Hr 50 gm 130 mg/dL (70-140) HIV 1 2 Antibody Non-Reactive (Nonreactive) Hgb 11.7 g/dL (12.0-15.0) L Hct 34.6 % (37-47) L Details: HIV: Urine Culture: Sequential Screen: NIPT Screen: ROS Const Reports system reviewed and no additional complaints, except as documented Resp Reports system reviewed and no additional complaints, except as documented GI Reports system reviewed and no additional complaints, except as documented, Denies nausea and Denies vomiting Denies dysuria, Denies urinary hesitancy and Denies urinary urgency Psych Reports system reviewed and no additional complaints, except as documented Exam Const General: cooperative, healthy appearing and no acute distress Orientation: alert, awake and oriented x3 Neck Neck: normal visual inspection Resp Effort Inspection: normal respiratory effort and able to speak in complete sentences GI Inspection: normal to inspection Palpation: soft and other Other: gravid Neuro General: patient alert, patient awake and patient oriented x3 Psych Appearance: grossly normal Mental Status: mental status grossly normal Speech and Movement: speech and movement normal Attitude: cooperative Thought Process: normal Thought Content: normal Judgment: judgment good Results POC Urinalysis 2 Dip (Clinic) Office Urine Glucose Negative Last Edit by Ashleigh Cannon on 08/24/22 14:29 Office Urine Protein Negative Last Edit by Ashleigh Cannon on 08/24/22 14:29 Coding Level of Care Code OB Routine Diagnoses Fundal height low for dates in third trimester O26.843 B12 deficiency E53.8 Ulcerative colitis K51.90 Supervision of normal first Z34.00 Z3A.39 Weeks of gestation: 39 weeks Assessment and Plan Assessment and Plan (1) Fundal height low for dates in third trimester: Status: Acute Comment: nl growth 07/27- repeat growth ordered next week (2) B12 deficiency: Status: Acute Comment: b12 replacement (3) Ulcerative colitis: Status: Acute Comment: diagnosed in [facility] resolved spontaneously, no rectal involvement, no meds. fu years later no abnormalities. b12 and iron levels checked. mfm consult at anatomy scan. (4) Supervision of normal first : Status: Acute Comment: PRR , MORENA 08/27/22, surprise Spouse Meir (5) : Status: Acute Qualifiers: Weeks of gestation: 39 weeks Qualified Code(s): Z3A.39 - 39 weeks gestation of Comment: GBS Negative, NIPT low risk, discussed carrier testing. anatomy reviewed,nl. Plan: RTO next week Orders: Orders POC Urinalysis 2 Dip (Clinic) Today Plan Details Additional Comments: ACOG trimester education reviewed and updated. see problem list details for updated plan management information and see below for orders placed at this visit. GA appropriate handout given. 08/24/22 5816 <Electronically signed by Eda Bearden CNM> Date Eda Bearden CNM Cosigner Signature: Date (if applicable) CC: Altagracia Wagner DO Work Phone: Start: 08-23-2022 End: 08-24-2022 OB Limited With Biometrics Procedure Note: See Note; NOTES: [facility] Imaging Services [address] [place], [place] [address] [address] OB Limited With Biometrics MR#: [id number] Acct: [id number] Name: MITZI SANTA Rep #: [id number] : 1995 F 27 From: Tashi Carter MD PCP: Dr. Altagracia Wagner DO Status: REG CLI Study: OB Limited With Biometrics Date of Exam: 08/23 Exam# [id number] Ordering Dr: Isabella Stoner EXAM: US , LIMITED CLINICAL INDICATION: fundal height low for dates TECHNIQUE: Real-time limited ultrasound of the maternal uterus with image documentation. This report was created using [employer] report generation technology. COMPARISON: None. FINDINGS: FETUS: There is an intrauterine gestation. GESTATIONAL AGE: Gestational age 39 weeks 3 days. MORENA: MORENA 08/27/2022. EFW: Estimated weight 3553 g. BPD: Biparietal diameter 9.5 cm age 38 weeks 5 days. HC: Head circumference 33.2 cm age 38 weeks 0 days. AC: Abdominal circumference 34.3 cm age 38 weeks 2 days. FL: Femur length 7.6 cm age 39 weeks 0 days. POSITION: The fetus is in the cephalic position. HEART RATE: heart rate 140 bpm. PLACENTA: The placenta is anterior. AMNIOTIC FLUID: ANTONIO measures 7.6 cm. CERVIX: The cervix was not visualized. US/OB Limited With Biometrics IMPRESSION: Intrauterine gestation with an average ultrasound age of 38 weeks 3 days and ultrasound estimated due date of 09/03/2022. heart rate is 140 bpm. Electronically Signed: Tashi Carter MD at 23:57 EDT , CC: Dr. Altagracia Wagner DO; Dr. Isabella Stoner MD Patrol Mother: Signed Altagracia Wagner DO Work Phone: Start: 08-16-2022 End: 08-16-2022 Adhesive Bandage Machine Operator Office Visit Report Procedure Note: See Note; NOTES: [facility] [address] [place] [address] OFFICE VISIT Date of Service: 08/16/22 MR#: [id number] Acct: [id number] Name: MITZI SANTA Rep #: [id number] 3 : 1995 Provider: Dr. Isabella barrera MD Age/Sex: 27/F Location: [facility] Status: Signed Intake Vital Signs 08/16/22 11:33 08/16/22 11:33 Height 5 ft 9 in 5 ft 9 in Weight: 182 lb 4 oz BMI 26.9 BP 122/77 H Intake Visit Reasons: 39 WK OB Paperboard Box Maker Required: No Is patient in pain?: No Allergies No Known Allergies Allergy (Verified 08/16/22 11:33) Medications multivitamin no.47-iron fum 27 mg-folate no.1 1 mg-dha 300 mg capsule (PNV-DHA) cap PO 01/21/22 [History Confirmed 08/16/22] Last Menstrual Period: 11/20/21 Zika: Zika virus screening: Negative : No PFSH PFSH Medical History History of vaccination against human papillomavirus Hx of ulcerative colitis Surgical History History of colonoscopy Hx of wisdom tooth extraction Family History Grandfather Colon cancer, Onset Age: 50 Paternal Grandmother Cancer uterine Social History adopted: No household members: spouse housing: house current occupational status: employed current occupation: Teacher current occupational exposures/hazards: No pets and animals: Yes pets and animals: dog(s) history of recent travel: Yes (November) out of state: Yes out of country: No sexually active: Yes Smoking Status: Never smoker alcohol intake: former details: socially prior to substance use type: does not use well-balanced diet: daily or most days caffeine: No eating out: 1-3 times/week during the past year weight has: remained stable what type of physical activity do you participate in: walking, running and yoga frequency: daily daniel/jew: Quaker seatbelt use: always do you feel safe at home: Yes additional social history: Spouse Erendira Velazquez Homes History 1 Elective abortions Hx Para 0 Spontaneous abortions Hx # Term Pregnancies Ectopic pregnancies Hx # Pregnancies Multiple births # of living children HPI 39 WK OB Details: MITZI SANTA is a 27 year old who presents for routine OB visit. OB Visit MORENA Calculator Estimated Delivery Date Method Current WG Current Estimate 08/27/22 LMP (Certain) 38w 3d Expected Delivery Route/Plan Labor Preferences- CB/BF classes: Today labor support person: Meir labor intervention preferences: [] pain management options preferred: epidural if needed cut cord/dad catch: cord : Yes PP control planned: discussed discussed possible routes of delivery and associated risks: [] special requests: [] Specific Issue/Plans Covid status: discussed Flu vaccine: discussed Tdap vaccine: given Rhogam: NA LARC form signed: done movement and labor precautions reviewed. Problem list reviewed and updated with the most current plan of care details and appropriate orders placed. Relevant counseling for the gestational age provided. Continue routine care and follow up unless otherwise noted in visit notes/problem list details Initial Weight: Not Recorded Date -???-???-???-???-???-???-???- ???-???-???-???-???- EGA Weight BP Urine Prot -???-???-???-???-???-???-???- ???-???-???-???-???- Glucose FHR FuHt Pres Dilation -???-???-???-???-???-???-???- ???-???-???-???-???- Effaced St Visit Note 01/27/22 -???-???-???-???-???-???-???- ???-???-???-???-???- 9w 5d 148 lb 118/82 118/82 -???-???-???-???-???-???-???- ???-???-???-???-???- 168 -???-???-???-???-???-???-???- ???-???-???-???-???- SM- CRL 3cm cons with LMP 02/25/22 -???-???-???-???-???-???-???- ???-???-???-???-???- 13w 6d 156 lb 108/64 Negative -???-???-???-???-???-???-???- ???-???-???-???-???- Negative 150 -???-???-???-???-???-???-???- ???-???-???-???-???- SM- no vb cr amping 03/21/22 -???-???-???-???-???-???-???- ???-???-???-???-???- 17w 2d 160 lb 110/68 Negative -???-???-???-???-???-???-???- ???-???-???-???-???- Negative 144 -???-???-???-???-???-???-???- ???-???-???-???-???- MH-No VB, cr amping. Has had headache a couple of times mild . Enc fluids, rest, tylenol ok. Denies vision changes. Nausea resolved. 04/20/22 -???-???-???-???-???-???-???- ???-???-???-???-???- 21w 4d 167 lb 104/62 Negative -???-???-???-???-???-???-???- ???-???-???-???-???- Negative 146 -???-???-???-???-???-???-???- ???-???-???-???-???- -No VB, LO F. No FM/ant placenta. Nl anatomy US reviewed. 05/20/22 -???-???-???-???-???-???-???- ???-???-???-???-???- 25w 6d 170 lb 8 oz 107/63 Negative -???-???-???-???-???-???-???- ???-???-???-???-???- Negative 140 26 -???-???-???-???-???-???-???- ???-???-???-???-???- SM- no vb lo f good fm no regular ctx 06/15/22 -???-???-???-???-???-???-???- ???-???-???-???-???- 29w 4d 179 lb 8 oz 121/67 Negative -???-???-???-???-???-???-???- ???-???-???-???-???- Negative 145 30 -???-???-???-???-???-???-???- ???-???-???-???-???- JV- no lof, vaginal bleeding, or cramping. tdap today 07/01/22 -???-???-???-???-???-???-???- ???-???-???-???-???- 31w 6d 181 lb 106/69 Negative -???-???-???-???-???-???-???- ???-???-???-???-???- Negative 155 31 -???-???-???-???-???-???-???- ???-???-???-???-???- JV- no lof, vaginal bleeding, or cramping. JV- no lof, vaginal bleeding, or c ramping. has baby shower this weekend. 07/20/22 -???-???-???-???-???-???-???- ???-???-???-???-???- 34w 4d 182 lb 8 oz 118/75 Negative -???-???-???-???-???-???-???- ???-???-???-???-???- Negative 140 32 31 -???-???-???-???-???-???-???- ???-???-???-???-???- KW-no LOF, V B, ctx. +FM KW-no LOF, VB, ctx. +FM. Growth US ordered 07/29/22 -???-???-???-???-???-???-???- ???-???-???-???-???- 35w 6d 187 lb 130/78 Negative -???-???-???-???-???-???-???- ???-???-???-???-???- Negative 143 33 Cephalic -???-???-???-???-???-???-???- ???-???-???-???-???- JV- normal g rowth scan. labor precautions discussed. 08/03/22 -???-???-???-???-???-???-???- ???-???-???-???-???- 36w 4d 184 lb 6 oz 112/72 Negative -???-???-???-???-???-???-???- ???-???-???-???-???- Negative 144 35 Cephalic 0 -???-???-???-???-???-???-???- ???-???-???-???-???- 0 -4 JV- no lof , vaginal bleeding, or dec fm. GBS collected. 08/10/22 -???-???-???-???-???-???-???- ???-???-???-???-???- 37w 4d 184 lb 4 oz 120/68 Negative -???-???-???-???-???-???-???- ???-???-???-???-???- Negative 149 36 -???-???-???-???-???-???-???- ???-???-???-???-???- MH-No VB, LO F. Good FM. No CTX. 08/16/22 -???-???-???-???-???-???-???- ???-???-???-???-???- 38w 3d 182 lb 4 oz 122/77 Negative -???-???-???-???-???-???-???- ???-???-???-???-???- Negative 130 36 Cephalic -???-???-???-???-???-???-???- ???-???-???-???-???- Sm- no vb lo f good fm no regular ctx discussed growth scan next week ACOG First Trimester First Trimester: Desire for , Alcohol, Tobacco Cessation, Illicit/Recreational Drug/Substance Use, Intimate Partner Violence, Barriers to care, Unstable Housing, Communication Barriers, Environmental/Work Hazards, Anticipated Course of Care, Toxoplasmosis Precations, Use of Any medications, Sexual activity, Exercise, Dental Care, Sauna/Hot tub use, Seat Belt use, Childbirth classes/Hospital facilities, , Travel, Indications for Ultrasound and Screening for Aneuploidy Second Trimester Second Trimester: Signs and Symptoms of Labor, Selecting a care provider, Reproductive Life Planning Contreception, Care Planning, Depression/Anxiety and Intimate Partner Violence; Discussed Tobacco Cessation Third Trimester Third Trimester: Pain Management Plans, Labor support person(s), Immediate Larc, Circumcision preference, Movement Monitoring, Signs and Symptoms of Preeclampsia, Labor Signs, Education, Depression and Depression Diagnostics Diagnostics Diagnostics: Blood Type O POSITIVE Antibody Screen NEGATIVE Glucose 1 Hr 50 gm 130 mg/dL (70-140) HIV 1 2 Antibody Non-Reactive (Nonreactive) Rubella IgG Antibody Reactive (Nonreactive) Hgb 11.7 g/dL (12.0-15.0) L Hct 34.6 % (37-47) L Chlamydia DNA (BRITTANY) Negative (Negative) N.gonorrhoeae DNA (BRITTANY) Negative (Negative) Details: HIV: Urine Culture: Sequential Screen: NIPT Screen: Results POC Urinalysis 2 Dip (Clinic) Office Urine Glucose Negative Last Edit by Shanel Louis on 08/16/22 11:35 Office Urine Protein Negative Last Edit by Shanel Louis on 08/16/22 11:35 Coding Level of Care Code OB Routine Diagnoses B12 deficiency E53.8 Ulcerative colitis K51.90 Supervision of normal first Z34.00 Z3A.38 Weeks of gestation: 38 weeks Fundal height low for dates in third trimester O26.843 Assessment and Plan Assessment and Plan (1) B12 deficiency: Status: Acute Comment: b12 replacement (2) Ulcerative colitis: Status: Acute Comment: diagnosed in college resolved spontaneously, no rectal involvement, no meds. fu years later no abnormalities. b12 and iron levels checked. mfm consult at anatomy scan. (3) Supervision of normal first : Status: Acute Comment: PRR , MORENA 08/27/22, surprise Spouse Meir (4) : Status: Acute Qualifiers: Weeks of gestation: 38 weeks Qualified Code(s): Z3A.38 - 38 weeks gestation of Comment: GBS Negative, NIPT low risk, discussed carrier testing. anatomy reviewed,nl. (5) Fundal height low for dates in third trimester: Status: Acute Comment: nl growth 07/27- repeat growth ordered next week Orders: Orders POC Urinalysis 2 Dip (Clinic) Today 08/16/22 1208 <Electronically signed by Isabella Stoner MD> Date Isabella Stoner MD Cosign Signature: Date (if applicable) CC: Altagracia Wagner DO Work Phone: Start: 08-10-2022 End: 08-10-2022 Adhesive Bandage Machine Operator Office Visit Report Procedure Note: See Note; NOTES: [facility] [address] [place], [place] [address] [place], [place] [id number] OFFICE VISIT Date of Service: 08/10/22 MR#: [id number] Acct: [id number] Name: MITZI SANTA Rep #: [id number] 1 : 1995 Provider: TRINIDAD parson Age/Sex: 27/F Location: [facility] Status: Signed Intake Vital Signs 07/20/22 15:49 07/20/22 16:20 08/10/22 14:24 08/10/22 14:25 Height 5 ft 9 in 5 ft 9 in 5 ft 9 in 5 ft 9 in Weight: 184 lb 4 oz BMI 27.1 BP 120/68 Intake Visit Reasons: 38 WK OB Chief Complaint: 38 Week OB Paperboard Box Maker Required: No Is patient in pain?: No Allergies No Known Allergies Allergy (Verified 08/10/22 14:25) Medications multivitamin no.47-iron fum 27 mg-folate no.1 1 mg-dha 300 mg capsule (PNV-DHA) cap PO 01/21/22 [History Confirmed 08/10/22] Last Menstrual Period: 11/20/21 Zika: Zika virus screening: Negative : No PFSH PFSH Medical History History of vaccination against human papillomavirus Hx of ulcerative colitis Surgical History History of colonoscopy Hx of wisdom tooth extraction Family History Grandfather Colon cancer, Onset Age: 50 Paternal Grandmother Cancer uterine Social History adopted: No household members: spouse housing: house current occupational status: employed current occupation: Teacher current occupational exposures/hazards: No pets and animals: Yes pets and animals: dog(s) history of recent travel: Yes (November) out of state: Yes out of country: No sexually active: Yes Smoking Status: Never smoker alcohol intake: former details: socially prior to substance use type: does not use well-balanced diet: daily or most days caffeine: No eating out: 1-3 times/week during the past year weight has: remained stable what type of physical activity do you participate in: walking, running and yoga frequency: daily daniel/jew: Quaker seatbelt use: always do you feel safe at home: Yes additional social history: Spouse Meir- [place] History 1 Elective abortions Hx Para 0 Spontaneous abortions Hx # Term Pregnancies Ectopic pregnancies Hx # Pregnancies Multiple births # of living children HPI 38 WK OB Details: MITZI SANTA is a 27 year old who presents for routine OB visit. OB Visit MORENA Calculator Estimated Delivery Date Method Current WG Current Estimate 08/27/22 LMP (Certain) 37w 4d Expected Delivery Route/Plan Labor Preferences- CB/BF classes: Today labor support person: Meir labor intervention preferences: [] pain management options preferred: epidural if needed cut cord/dad catch: cord : Yes PP control planned: discussed discussed possible routes of delivery and associated risks: [] special requests: [] Specific Issue/Plans Covid status: discussed Flu vaccine: discussed Tdap vaccine: given Rhogam: NA LARC form signed: done movement and labor precautions reviewed. Problem list reviewed and updated with the most current plan of care details and appropriate orders placed. Relevant counseling for the gestational age provided. Continue routine care and follow up unless otherwise noted in visit notes/problem list details Initial Weight: Not Recorded Date -???-???-???-???-???-???-???- ???-???-???-???-???- EGA Weight BP Urine Prot -???-???-???-???-???-???-???- ???-???-???-???-???- Glucose FHR FuHt Pres Dilation -???-???-???-???-???-???-???- ???-???-???-???-???- Effaced St Visit Note 01/27/22 -???-???-???-???-???-???-???- ???-???-???-???-???- 9w 5d 148 lb 118/82 118/82 -???-???-???-???-???-???-???- ???-???-???-???-???- 168 -???-???-???-???-???-???-???- ???-???-???-???-???- SM- CRL 3cm cons with LMP 02/25/22 -???-???-???-???-???-???-???- ???-???-???-???-???- 13w 6d 156 lb 108/64 Negative -???-???-???-???-???-???-???- ???-???-???-???-???- Negative 150 -???-???-???-???-???-???-???- ???-???-???-???-???- SM- no vb cr amping 03/21/22 -???-???-???-???-???-???-???- ???-???-???-???-???- 17w 2d 160 lb 110/68 Negative -???-???-???-???-???-???-???- ???-???-???-???-???- Negative 144 -???-???-???-???-???-???-???- ???-???-???-???-???- -No VB, cr amping. Has had headache a couple of times mild . Enc fluids, rest, tylenol ok. Denies vision changes. Nausea resolved. 04/20/22 -???-???-???-???-???-???-???- ???-???-???-???-???- 21w 4d 167 lb 104/62 Negative -???-???-???-???-???-???-???- ???-???-???-???-???- Negative 146 -???-???-???-???-???-???-???- ???-???-???-???-???- MH-No VB, LO F. No FM/ant placenta. Nl anatomy US reviewed. 05/20/22 -???-???-???-???-???-???-???- ???-???-???-???-???- 25w 6d 170 lb 8 oz 107/63 Negative -???-???-???-???-???-???-???- ???-???-???-???-???- Negative 140 26 -???-???-???-???-???-???-???- ???-???-???-???-???- SM- no vb lo f good fm no regular ctx 06/15/22 -???-???-???-???-???-???-???- ???-???-???-???-???- 29w 4d 179 lb 8 oz 121/67 Negative -???-???-???-???-???-???-???- ???-???-???-???-???- Negative 145 30 -???-???-???-???-???-???-???- ???-???-???-???-???- JV- no lof, vaginal bleeding, or cramping. tdap today 07/01/22 -???-???-???-???-???-???-???- ???-???-???-???-???- 31w 6d 181 lb 106/69 Negative -???-???-???-???-???-???-???- ???-???-???-???-???- Negative 155 31 -???-???-???-???-???-???-???- ???-???-???-???-???- JV- no lof, vaginal bleeding, or cramping. JV- no lof, vaginal bleeding, or c ramping. has baby shower this weekend. 07/20/22 -???-???-???-???-???-???-???- ???-???-???-???-???- 34w 4d 182 lb 8 oz 118/75 Negative -???-???-???-???-???-???-???- ???-???-???-???-???- Negative 140 32 31 -???-???-???-???-???-???-???- ???-???-???-???-???- KW-no LOF, V B, ctx. +FM KW-no LOF, VB, ctx. +FM. Growth US ordered 07/29/22 -???-???-???-???-???-???-???- ???-???-???-???-???- 35w 6d 187 lb 130/78 Negative -???-???-???-???-???-???-???- ???-???-???-???-???- Negative 143 33 Cephalic -???-???-???-???-???-???-???- ???-???-???-???-???- JV- normal g rowth scan. labor precautions discussed. 08/03/22 -???-???-???-???-???-???-???- ???-???-???-???-???- 36w 4d 184 lb 6 oz 112/72 Negative -???-???-???-???-???-???-???- ???-???-???-???-???- Negative 144 35 Cephalic 0 -???-???-???-???-???-???-???- ???-???-???-???-???- 0 -4 JV- no lof , vaginal bleeding, or dec fm. GBS collected. 08/10/22 -???-???-???-???-???-???-???- ???-???-???-???-???- 37w 4d 184 lb 4 oz 120/68 Negative -???-???-???-???-???-???-???- ???-???-???-???-???- Negative 149 36 -???-???-???-???-???-???-???- ???-???-???-???-???- MH-No VB, LO F. Good FM. No CTX. ACOG First Trimester First Trimester: Desire for , Alcohol, Tobacco Cessation, Illicit/Recreational Drug/Substance Use, Intimate Partner Violence, Barriers to care, Unstable Housing, Communication Barriers, Environmental/Work Hazards, Anticipated Course of Care, Toxoplasmosis Precations, Use of Any medications, Sexual activity, Exercise, Dental Care, Sauna/Hot tub use, Seat Belt use, Childbirth classes/Hospital facilities, , Travel, Indications for Ultrasound and Screening for Aneuploidy Second Trimester Second Trimester: Signs and Symptoms of Labor, Selecting a care provider, Reproductive Life Planning Contreception, Care Planning, Depression/Anxiety and Intimate Partner Violence; Discussed Tobacco Cessation Third Trimester Third Trimester: Pain Management Plans, Labor support person(s), Immediate Larc, Circumcision preference, Movement Monitoring, Signs and Symptoms of Preeclampsia, Labor Signs, Ponderosa Education, Depression and Depression Diagnostics Diagnostics Diagnostics: Blood Type O POSITIVE Antibody Screen NEGATIVE Glucose 1 Hr 50 gm 130 mg/dL (70-140) HIV 1 2 Antibody Non-Reactive (Nonreactive) Rubella IgG Antibody Reactive (Nonreactive) Hgb 11.7 g/dL (12.0-15.0) L Hct 34.6 % (37-47) L Chlamydia DNA (BRITTANY) Negative (Negative) N.gonorrhoeae DNA (BRITTANY) Negative (Negative) Details: HIV: Urine Culture: Sequential Screen: NIPT Screen: Results POC Urinalysis 2 Dip (Clinic) Office Urine Glucose Negative Last Edit by Christina oLw on 08/10/22 14:25 Office Urine Protein Negative Last Edit by Christina Low on 08/10/22 14:25 Coding Level of Care Code OB Routine Diagnoses SGA (small for gestational age), , affecting care of mother, antepartum O36.5990 Supervision of normal first Z34.00 Z3A.36 Weeks of gestation: 36 weeks Assessment and Plan Assessment and Plan (1) SGA (small for gestational age), , affecting care of mother, antepartum: Status: Acute Comment: growth ultrasound ordered, growth at 53%, EFW 2751gms +/- 413 gms. (2) Supervision of normal first : Status: Acute Comment: PRR , MORENA 08/27/22, surprise Spouse Meir (3) : Status: Acute Qualifiers: Weeks of gestation: 36 weeks Qualified Code(s): Z3A.36 - 36 weeks gestation of Comment: GBS Negative, NIPT low risk, discussed carrier testing. anatomy reviewed,nl. Orders: Orders POC Urinalysis 2 Dip (Clinic) Today Plan problem list reviewed and updated for most current plan of care and appropriate orders placed. Relevant counseling for the gestational age appropriate provided and ACOG education checklist updated. Continue routine care and follow up. 08/10/22 4837 <Electronically signed by Sosa Mendenhall NP PAINTING CONTRACTOR-C> Date Sosa Abdirashid PAINTING CONTRACTOR PAINTING CONTRACTOR-C Cosigner Signature: Date (if applicable) CC: Altagracia Wagner DO Work Phone: Start: 08-03-2022 End: 08-03-2022 Adhesive Bandage Machine Operator Office Visit Report Procedure Note: See Note; NOTES: [facility] [address] [place] [address] OFFICE VISIT Date of Service: 08/03/22 MR#: [id number] Acct: [id number] Name: MITZI SANTA Rep #: [id number] : 1995 Provider: Dr. Tish Musa DO Age/Sex: 27/F Location: [facility] Status: Signed Intake Vital Signs 07/20/22 15:49 08/03/22 15:33 08/03/22 15:33 Height 5 ft 9 in 5 ft 9 in 5 ft 9 in Weight: 184 lb 6 oz BMI 27.2 BP 112/72 Intake Visit Reasons: 37 WK OB Paperboard Box Maker Required: No Is patient in pain?: No Allergies No Known Allergies Allergy (Verified 08/03/22 15:33) Medications multivitamin no.47-iron fum 27 mg-folate no.1 1 mg-dha 300 mg capsule (PNV-DHA) cap PO 01/21/22 [History Confirmed 08/03/22] Last Menstrual Period: 11/20/21 Zika: Zika virus screening: Negative : No PFSH PFSH Medical History History of vaccination against human papillomavirus Hx of ulcerative colitis Surgical History History of colonoscopy Hx of wisdom tooth extraction Family History Grandfather Colon cancer, Onset Age: 50 Paternal Grandmother Cancer uterine Social History adopted: No household members: spouse housing: house current occupational status: employed current occupation: Teacher current occupational exposures/hazards: No pets and animals: Yes pets and animals: dog(s) history of recent travel: Yes (November) out of state: Yes out of country: No sexually active: Yes Smoking Status: Never smoker alcohol intake: former details: socially prior to substance use type: does not use well-balanced diet: daily or most days caffeine: No eating out: 1-3 times/week during the past year weight has: remained stable what type of physical activity do you participate in: walking, running and yoga frequency: daily daniel/jew: Quaker seatbelt use: always do you feel safe at home: Yes additional social history: Spouse Meir- [facility] History 1 Elective abortions Hx Para 0 Spontaneous abortions Hx # Term Pregnancies Ectopic pregnancies Hx # Pregnancies Multiple births # of living children HPI 37 WK OB Details: MITZI SANTA is a 27 year old who presents for routine OB visit. OB Visit MORENA Calculator Estimated Delivery Date Method Current WG Current Estimate 08/27/22 LMP (Certain) 36w 4d Expected Delivery Route/Plan Labor Preferences- CB/BF classes: Today labor support person: Meir labor intervention preferences: [] pain management options preferred: [] cut cord/dad catch: [] : Yes PP control planned: [] discussed possible routes of delivery and associated risks: [] special requests: [] Specific Issue/Plans Covid status: discussed Flu vaccine: discussed Tdap vaccine: [] Rhogam: NA LARC form signed: done movement and labor precautions reviewed. Problem list reviewed and updated with the most current plan of care details and appropriate orders placed. Relevant counseling for the gestational age provided. Continue routine care and follow up unless otherwise noted in visit notes/problem list details Initial Weight: Not Recorded Date -???-???-???-???-???-???-???- ???-???-???-???-???- EGA Weight BP Urine Prot -???-???-???-???-???-???-???- ???-???-???-???-???- Glucose FHR FuHt Pres Dilation -???-???-???-???-???-???-???- ???-???-???-???-???- Effaced St Visit Note 01/27/22 -???-???-???-???-???-???-???- ???-???-???-???-???- 9w 5d 148 lb 118/82 118/82 -???-???-???-???-???-???-???- ???-???-???-???-???- 168 -???-???-???-???-???-???-???- ???-???-???-???-???- SM- CRL 3cm cons with LMP 02/25/22 -???-???-???-???-???-???-???- ???-???-???-???-???- 13w 6d 156 lb 108/64 Negative -???-???-???-???-???-???-???- ???-???-???-???-???- Negative 150 -???-???-???-???-???-???-???- ???-???-???-???-???- SM- no vb cr amping 03/21/22 -???-???-???-???-???-???-???- ???-???-???-???-???- 17w 2d 160 lb 110/68 Negative -???-???-???-???-???-???-???- ???-???-???-???-???- Negative 144 -???-???-???-???-???-???-???- ???-???-???-???-???- -No VB, cr amping. Has had headache a couple of times mild . Enc fluids, rest, tylenol ok. Denies vision changes. Nausea resolved. 04/20/22 -???-???-???-???-???-???-???- ???-???-???-???-???- 21w 4d 167 lb 104/62 Negative -???-???-???-???-???-???-???- ???-???-???-???-???- Negative 146 -???-???-???-???-???-???-???- ???-???-???-???-???- -No VB, LO F. No FM/ant placenta. Nl anatomy US reviewed. 05/20/22 -???-???-???-???-???-???-???- ???-???-???-???-???- 25w 6d 170 lb 8 oz 107/63 Negative -???-???-???-???-???-???-???- ???-???-???-???-???- Negative 140 26 -???-???-???-???-???-???-???- ???-???-???-???-???- - no vb lo f good fm no regular ctx 06/15/22 -???-???-???-???-???-???-???- ???-???-???-???-???- 29w 4d 179 lb 8 oz 121/67 Negative -???-???-???-???-???-???-???- ???-???-???-???-???- Negative 145 30 -???-???-???-???-???-???-???- ???-???-???-???-???- JV- no lof, vaginal bleeding, or cramping. tdap today 07/01/22 -???-???-???-???-???-???-???- ???-???-???-???-???- 31w 6d 181 lb 106/69 Negative -???-???-???-???-???-???-???- ???-???-???-???-???- Negative 155 31 -???-???-???-???-???-???-???- ???-???-???-???-???- JV- no lof, vaginal bleeding, or cramping. JV- no lof, vaginal bleeding, or c ramping. has baby shower this weekend. 07/20/22 -???-???-???-???-???-???-???- ???-???-???-???-???- 34w 4d 182 lb 8 oz 118/75 Negative -???-???-???-???-???-???-???- ???-???-???-???-???- Negative 140 32 31 -???-???-???-???-???-???-???- ???-???-???-???-???- KW-no LOF, V B, ctx. +FM KW-no LOF, VB, ctx. +FM. Growth US ordered 07/29/22 -???-???-???-???-???-???-???- ???-???-???-???-???- 35w 6d 187 lb 130/78 Negative -???-???-???-???-???-???-???- ???-???-???-???-???- Negative 143 33 Cephalic -???-???-???-???-???-???-???- ???-???-???-???-???- JV- normal g rowth scan. labor precautions discussed. 08/03/22 -???-???-???-???-???-???-???- ???-???-???-???-???- 36w 4d 184 lb 6 oz 112/72 Negative -???-???-???-???-???-???-???- ???-???-???-???-???- Negative 144 35 Cephalic 0 -???-???-???-???-???-???-???- ???-???-???-???-???- 0 -4 JV- no lof , vaginal bleeding, or dec fm. GBS collected. ACOG First Trimester First Trimester: Desire for , Alcohol, Tobacco Cessation, Illicit/Recreational Drug/Substance Use, Intimate Partner Violence, Barriers to care, Unstable Housing, Communication Barriers, Environmental/Work Hazards, Anticipated Course of Care, Toxoplasmosis Precations, Use of Any medications, Sexual activity, Exercise, Dental Care, Sauna/Hot tub use, Seat Belt use, Childbirth classes/Hospital facilities, , Travel, Indications for Ultrasound and Screening for Aneuploidy Second Trimester Second Trimester: Signs and Symptoms of Labor, Selecting a care provider, Reproductive Life Planning Contreception, Care Planning, Depression/Anxiety and Intimate Partner Violence; Discussed Tobacco Cessation Third Trimester Third Trimester: Pain Management Plans, Labor support person(s), Immediate Larc, Circumcision preference, Movement Monitoring, Signs and Symptoms of Preeclampsia, Labor Signs, Ponderosa Education, Depression and Depression Diagnostics Diagnostics Diagnostics: Blood Type O POSITIVE Antibody Screen NEGATIVE Glucose 1 Hr 50 gm 130 mg/dL (70-140) HIV 1 2 Antibody Non-Reactive (Nonreactive) Rubella IgG Antibody Reactive (Nonreactive) Hgb 11.7 g/dL (12.0-15.0) L Hct 34.6 % (37-47) L Chlamydia DNA (BRITTANY) Negative (Negative) N.gonorrhoeae DNA (BRITTANY) Negative (Negative) Details: HIV: Urine Culture: Sequential Screen: NIPT Screen: ROS Const Denies fever(s) GI Reports as per HPI and Denies abdominal pain Reports as per HPI, Denies abnormal vaginal bleeding, Denies dysuria and Denies vaginal discharge Exam Const General: healthy appearing, comfortable and no acute distress GI Inspection: normal to inspection Palpation: soft and nontender Results POC Urinalysis 2 Dip (Clinic) Office Urine Glucose Negative Last Edit by Ashleigh Cannon on 08/03/22 15:43 Office Urine Protein Negative Last Edit by Ashleigh Cannon on 08/03/22 15:43 Coding Level of Care Code OB Routine Diagnoses SGA (small for gestational age), , affecting care of mother, antepartum O36.5990 B12 deficiency E53.8 Ulcerative colitis K51.90 Supervision of normal first Z34.00 Z3A.36 Weeks of gestation: 36 weeks Assessment and Plan Assessment and Plan (1) SGA (small for gestational age), , affecting care of mother, antepartum: Status: Acute Comment: growth ultrasound ordered, growth at 53%, EFW 2751gms +/- 413 gms. (2) B12 deficiency: Status: Acute Comment: repeat b12 in one month (3) Ulcerative colitis: Status: Acute Comment: diagnosed in college resolved spontaneously, no rectal involvement, no meds. fu years later no abnormalities. b12 and iron levels checked. mfm consult at anatomy scan. (4) Supervision of normal first : Status: Acute Comment: PRR , MORENA 08/27/22, surprise Spouse Meir (5) : Status: Acute Qualifiers: Weeks of gestation: 36 weeks Qualified Code(s): Z3A.36 - 36 weeks gestation of Comment: NIPT low risk, discussed carrier testing. anatomy reviewed,nl. Orders: Orders POC Urinalysis 2 Dip (Clinic) Today Culture, Group B Streptococcus Today Z34.00 - Encounter for supervision of normal first , unspecified trimester 08/03/22 1550 <Electronically signed by Tish Ramos DO> Date Tish Ramos DO Cosign Signature: Date (if applicable) CC: Altagracia Wagner DO Work Phone: Start: 07-29-2022 End: 07-29-2022 Adhesive Bandage Machine Operator Office Visit Report Procedure Note: See Note; NOTES: [facility] [address] [place] [address] [address] [place] [address] OFFICE VISIT Date of Service: 07/29/22 MR#: [id number] Acct: [id number] Name: ARINA,MITZIJUHI WEEKS Rep #: [id number] : 1995 Provider: Dr. Tish Musa DO Age/Sex: 27/F Location: [facility] Status: Signed Intake Vital Signs 06/15/22 15:48 07/20/22 16:20 07/29/22 15:55 07/29/22 15:56 Height 5 ft 9 in 5 ft 9 in 5 ft 9 in 5 ft 9 in Weight: 187 lb BMI 27.6 BP 130/78 H Intake Visit Reasons: 36 WK OB Paperboard Box Maker Required: No Is patient in pain?: No Allergies No Known Allergies Allergy (Verified 07/29/22 15:55) Medications multivitamin no.47-iron fum 27 mg-folate no.1 1 mg-dha 300 mg capsule (PNV-DHA) cap PO 01/21/22 [History Confirmed 07/29/22] Last Menstrual Period: 11/20/21 Zika: Zika virus screening: Negative : No PFSH PFSH Medical History History of vaccination against human papillomavirus Hx of ulcerative colitis Surgical History History of colonoscopy Hx of wisdom tooth extraction Family History Grandfather Colon cancer, Onset Age: 50 Paternal Grandmother Cancer uterine Social History adopted: No household members: spouse housing: house current occupational status: employed current occupation: Teacher current occupational exposures/hazards: No pets and animals: Yes pets and animals: dog(s) history of recent travel: Yes ([place]) out of state: Yes out of country: No sexually active: Yes Smoking Status: Never smoker alcohol intake: former details: socially prior to substance use type: does not use well-balanced diet: daily or most days caffeine: No eating out: 1-3 times/week during the past year weight has: remained stable what type of physical activity do you participate in: walking, running and yoga frequency: daily daniel/jew: Quaker seatbelt use: always do you feel safe at home: Yes additional social history: Spouse Erendira Dominique History 1 Elective abortions Hx Para 0 Spontaneous abortions Hx # Term Pregnancies Ectopic pregnancies Hx # Pregnancies Multiple births # of living children HPI 36 WK OB Details: MITZI SANTA is a 27 year old who presents for routine OB visit. OB Visit MORENA Calculator Estimated Delivery Date Method Current WG Current Estimate 08/27/22 LMP (Certain) 35w 6d Expected Delivery Route/Plan Labor Preferences- CB/BF classes: Today labor support person: Meir labor intervention preferences: [] pain management options preferred: [] cut cord/dad catch: [] : Yes PP control planned: [] discussed possible routes of delivery and associated risks: [] special requests: [] Specific Issue/Plans Covid status: discussed Flu vaccine: discussed Tdap vaccine: [] Rhogam: NA LARC form signed: done movement and labor precautions reviewed. Problem list reviewed and updated with the most current plan of care details and appropriate orders placed. Relevant counseling for the gestational age provided. Continue routine care and follow up unless otherwise noted in visit notes/problem list details Initial Weight: Not Recorded Date -???-???-???-???-???-???-???- ???-???-???-???-???- EGA Weight BP Urine Prot -???-???-???-???-???-???-???- ???-???-???-???-???- Glucose FHR FuHt Pres Dilation -???-???-???-???-???-???-???- ???-???-???-???-???- Effaced St Visit Note 01/27/22 -???-???-???-???-???-???-???- ???-???-???-???-???- 9w 5d 148 lb 118/82 118/82 -???-???-???-???-???-???-???- ???-???-???-???-???- 168 -???-???-???-???-???-???-???- ???-???-???-???-???- SM- CRL 3cm cons with LMP 02/25/22 -???-???-???-???-???-???-???- ???-???-???-???-???- 13w 6d 156 lb 108/64 Negative -???-???-???-???-???-???-???- ???-???-???-???-???- Negative 150 -???-???-???-???-???-???-???- ???-???-???-???-???- SM- no vb cr amping 03/21/22 -???-???-???-???-???-???-???- ???-???-???-???-???- 17w 2d 160 lb 110/68 Negative -???-???-???-???-???-???-???- ???-???-???-???-???- Negative 144 -???-???-???-???-???-???-???- ???-???-???-???-???- MH-No VB, cr amping. Has had headache a couple of times mild . Enc fluids, rest, tylenol ok. Denies vision changes. Nausea resolved. 04/20/22 -???-???-???-???-???-???-???- ???-???-???-???-???- 21w 4d 167 lb 104/62 Negative -???-???-???-???-???-???-???- ???-???-???-???-???- Negative 146 -???-???-???-???-???-???-???- ???-???-???-???-???- MH-No VB, LO F. No FM/ant placenta. Nl anatomy US reviewed. 05/20/22 -???-???-???-???-???-???-???- ???-???-???-???-???- 25w 6d 170 lb 8 oz 107/63 Negative -???-???-???-???-???-???-???- ???-???-???-???-???- Negative 140 26 -???-???-???-???-???-???-???- ???-???-???-???-???- SM- no vb lo f good fm no regular ctx 06/15/22 -???-???-???-???-???-???-???- ???-???-???-???-???- 29w 4d 179 lb 8 oz 121/67 Negative -???-???-???-???-???-???-???- ???-???-???-???-???- Negative 145 30 -???-???-???-???-???-???-???- ???-???-???-???-???- JV- no lof, vaginal bleeding, or cramping. tdap today 07/01/22 -???-???-???-???-???-???-???- ???-???-???-???-???- 31w 6d 181 lb 106/69 Negative -???-???-???-???-???-???-???- ???-???-???-???-???- Negative 155 31 -???-???-???-???-???-???-???- ???-???-???-???-???- JV- no lof, vaginal bleeding, or cramping. JV- no lof, vaginal bleeding, or c ramping. has baby shower this weekend. 07/20/22 -???-???-???-???-???-???-???- ???-???-???-???-???- 34w 4d 182 lb 8 oz 118/75 Negative -???-???-???-???-???-???-???- ???-???-???-???-???- Negative 140 32 31 -???-???-???-???-???-???-???- ???-???-???-???-???- KW-no LOF, V B, ctx. +FM KW-no LOF, VB, ctx. +FM. Growth US ordered 07/29/22 -???-???-???-???-???-???-???- ???-???-???-???-???- 35w 6d 187 lb 130/78 Negative -???-???-???-???-???-???-???- ???-???-???-???-???- Negative 143 33 Cephalic -???-???-???-???-???-???-???- ???-???-???-???-???- JV- normal g rowth scan. labor precautions discussed. ACOG First Trimester First Trimester: Desire for , Alcohol, Tobacco Cessation, Illicit/Recreational Drug/Substance Use, Intimate Partner Violence, Barriers to care, Unstable Housing, Communication Barriers, Environmental/Work Hazards, Anticipated Course of Care, Toxoplasmosis Precations, Use of Any medications, Sexual activity, Exercise, Dental Care, Sauna/Hot tub use, Seat Belt use, Childbirth classes/Hospital facilities, , Travel, Indications for Ultrasound and Screening for Aneuploidy Second Trimester Second Trimester: Signs and Symptoms of Labor, Selecting a care provider, Reproductive Life Planning Contreception, Care Planning, Depression/Anxiety and Intimate Partner Violence; Discussed Tobacco Cessation Third Trimester Third Trimester: Pain Management Plans, Labor support person(s), Immediate Larc, Circumcision preference, Movement Monitoring, Signs and Symptoms of Preeclampsia, Labor Signs, Ponderosa Education, Depression and Depression Diagnostics Diagnostics Diagnostics: Blood Type O POSITIVE Antibody Screen NEGATIVE Glucose 1 Hr 50 gm 130 mg/dL (70-140) HIV 1 2 Antibody Non-Reactive (Nonreactive) Rubella IgG Antibody Reactive (Nonreactive) Hgb 11.7 g/dL (12.0-15.0) L Hct 34.6 % (37-47) L Chlamydia DNA (BRITTANY) Negative (Negative) N.gonorrhoeae DNA (BRITTANY) Negative (Negative) Details: HIV: Urine Culture: Sequential Screen: NIPT Screen: ROS Const Denies fever(s) GI Reports as per HPI and Denies abdominal pain Reports as per HPI, Denies abnormal vaginal bleeding, Denies dysuria and Denies vaginal discharge Exam Const General: healthy appearing, comfortable and no acute distress GI Inspection: normal to inspection Palpation: soft and nontender Results POC Urinalysis 2 Dip (Clinic) Office Urine Glucose Negative Last Edit by Ashleigh Cannon on 07/29/22 16:02 Office Urine Protein Negative Last Edit by Ashleigh Cannon on 07/29/22 16:02 Coding Level of Care Code OB Routine Diagnoses SGA (small for gestational age), , affecting care of mother, antepartum O36.5990 B12 deficiency E53.8 Ulcerative colitis K51.90 Supervision of normal first Z34.00 Z3A.35 Weeks of gestation: 35 weeks Assessment and Plan Assessment and Plan (1) SGA (small for gestational age), , affecting care of mother, antepartum: Status: Acute Comment: growth ultrasound ordered, growth at 53%, EFW 2751gms +/- 413 gms. (2) B12 deficiency: Status: Acute Comment: repeat b12 in one month (3) Ulcerative colitis: Status: Acute Comment: diagnosed in college resolved spontaneously, no rectal involvement, no meds. fu years later no abnormalities. b12 and iron levels checked. mfm consult at anatomy scan. (4) Supervision of normal first : Status: Acute Comment: PRR , MORENA 08/27/22, surprise Spouse Meir (5) : Status: Acute Qualifiers: Weeks of gestation: 35 weeks Qualified Code(s): Z3A.35 - 35 weeks gestation of Comment: NIPT low risk, discussed carrier testing. anatomy reviewed,nl. Orders: Orders POC Urinalysis 2 Dip (Clinic) Today 07/29/22 4150 <Electronically signed by Tish Ramos DO> Date Tish Ramos DO Cosigner Signature: Date (if applicable) CC: Altagracia Wagner DO Work Phone: Start: 07-27-2022 End: 08-02-2022 OB Limited With Biometrics Procedure Note: See Note; NOTES: [facility] Imaging Services [address] [place] [id number] OB Limited With Biometrics MR#: [id number] Acct: [id number] Name: MITZI SANTA Rep #: [id number] : 1995 F 27 From: Bryon Young MD PCP: Dr. Altagracia Wagner DO Status: REG CLI Study: OB Limited With Biometrics Date of Exam: 07/27 Exam# [id number] Ordering Dr: Eda Bearden CNM STUDY: SECOND AND THIRD TRIMESTER OBSTETRICAL ULTRASOUND - LIMITED REASON FOR EXAM: Female, 27 years old routine survey, growth assessment LMP: 11/20/2021 PRIOR ULTRASOUND: None. TECHNIQUE: Transabdominal TECHNICAL QUALITY: Adequate. FINDINGS: There is a single intrauterine fetus. The fetus is in a cephalic presentation. There is demonstrated cardiac activity with a heart rate of 143 bpm. There is a normal amniotic fluid volume. The largest amniotic fluid pocket measures 3 x 3.9 cm. The amniotic fluid index (ANTONIO) is 10.47 cm. The placenta is anterior in location and is not low lying. There are Grade 1 placental changes. The cervix measures 3.3 cm in length. BIOMETRY: BPD: 9.29 cm: 37 weeks, 5 days HC: 32.59 cm: 37 weeks, 0 days AC: 30.94 cm: 34 weeks, 6 days FL: 6.95 cm: 35 weeks, 5 days age by current US: 36 weeks, 3 days. MORENA by current US: 08/21/2022. Estimated weight: 2751 grams, +/- 413 grams, 53 percentile. US/OB Limited With Biometrics IMPRESSION: Single live intrauterine at 36 weeks, 3 days by current ultrasound with MOREAN of 08/21/2022. Heart rate 143 bpm. No suspicious sonographic findings Electronically Signed: Jimmie Young MD at 15:17 EDT , CC: ROXANA Bearden; Dr. Altagracia Wagner DO Patrol Mother: Signed Altagracia Wagner DO Work Phone: Start: 07-20-2022 End: 07-20-2022 Adhesive Bandage Machine Operator Office Visit Report Procedure Note: See Note; NOTES: [facility] [address] [place] [address] OFFICE VISIT Date of Service: 07/20/22 MR#: [id number] Acct: [id number] Name: MITZI SANTA Rep #: [id number] 4 : 1995 Provider: ROXANA Scott ams Age/Sex: 27/F Location: [facility] Status: Signed Intake Vital Signs 07/20/22 15:47 07/20/22 15:49 Height 5 ft 9 in 5 ft 9 in Weight: 182 lb 8 oz BMI 26.9 BP 118/75 Intake Visit Reasons: 34 WK OB Paperboard Box Maker Required: No Is patient in pain?: No Allergies No Known Allergies Allergy (Verified 07/20/22 15:48) Medications multivitamin no.47-iron fum 27 mg-folate no.1 1 mg-dha 300 mg capsule (PNV-DHA) cap PO 01/21/22 [History Confirmed 07/20/22] Last Menstrual Period: 11/20/21 Zika: Zika virus screening: Negative : No PFSH PFSH Medical History History of vaccination against human papillomavirus Hx of ulcerative colitis Surgical History History of colonoscopy Hx of wisdom tooth extraction Family History Grandfather Colon cancer, Onset Age: 50 Paternal Grandmother Cancer uterine Social History adopted: No household members: spouse housing: house current occupational status: employed current occupation: Teacher current occupational exposures/hazards: No pets and animals: Yes pets and animals: dog(s) history of recent travel: Yes (November) out of state: Yes out of country: No sexually active: Yes Smoking Status: Never smoker alcohol intake: former details: socially prior to substance use type: does not use well-balanced diet: daily or most days caffeine: No eating out: 1-3 times/week during the past year weight has: remained stable what type of physical activity do you participate in: walking, running and yoga frequency: daily daniel/jew: Quaker seatbelt use: always do you feel safe at home: Yes additional social history: Spouse Meir- [employer] [facility] History 1 Elective abortions Hx Para 0 Spontaneous abortions Hx # Term Pregnancies Ectopic pregnancies Hx # Pregnancies Multiple births # of living children HPI 34 WK OB Details: MITZI SANTA is a 27 year old who presents for routine OB visit. OB Visit MORENA Calculator Estimated Delivery Date Method Current WG Current Estimate 08/27/22 LMP (Certain) 34w 4d Expected Delivery Route/Plan Labor Preferences- CB/BF classes: Today labor support person: Meir labor intervention preferences: [] pain management options preferred: [] cut cord/dad catch: [] : Yes PP control planned: [] discussed possible routes of delivery and associated risks: [] special requests: [] Specific Issue/Plans Covid status: discussed Flu vaccine: discussed Tdap vaccine: [] Rhogam: NA LARC form signed: done movement and labor precautions reviewed. Problem list reviewed and updated with the most current plan of care details and appropriate orders placed. Relevant counseling for the gestational age provided. Continue routine care and follow up unless otherwise noted in visit notes/problem list details Initial Weight: Not Recorded Date -???-???-???-???-???-???-???- ???-???-???-???-???- EGA Weight BP Urine Prot -???-???-???-???-???-???-???- ???-???-???-???-???- Glucose FHR FuHt Pres Dilation -???-???-???-???-???-???-???- ???-???-???-???-???- Effaced St Visit Note 01/27/22 -???-???-???-???-???-???-???- ???-???-???-???-???- 9w 5d 148 lb 118/82 118/82 -???-???-???-???-???-???-???- ???-???-???-???-???- 168 -???-???-???-???-???-???-???- ???-???-???-???-???- SM- CRL 3cm cons with LMP 02/25/22 -???-???-???-???-???-???-???- ???-???-???-???-???- 13w 6d 156 lb 108/64 Negative -???-???-???-???-???-???-???- ???-???-???-???-???- Negative 150 -???-???-???-???-???-???-???- ???-???-???-???-???- SM- no vb cr amping 03/21/22 -???-???-???-???-???-???-???- ???-???-???-???-???- 17w 2d 160 lb 110/68 Negative -???-???-???-???-???-???-???- ???-???-???-???-???- Negative 144 -???-???-???-???-???-???-???- ???-???-???-???-???- MH-No VB, cr amping. Has had headache a couple of times mild . Enc fluids, rest, tylenol ok. Denies vision changes. Nausea resolved. 04/20/22 -???-???-???-???-???-???-???- ???-???-???-???-???- 21w 4d 167 lb 104/62 Negative -???-???-???-???-???-???-???- ???-???-???-???-???- Negative 146 -???-???-???-???-???-???-???- ???-???-???-???-???- -No VB, LO F. No FM/ant placenta. Nl anatomy US reviewed. 05/20/22 -???-???-???-???-???-???-???- ???-???-???-???-???- 25w 6d 170 lb 8 oz 107/63 Negative -???-???-???-???-???-???-???- ???-???-???-???-???- Negative 140 26 -???-???-???-???-???-???-???- ???-???-???-???-???- SM- no vb lo f good fm no regular ctx 06/15/22 -???-???-???-???-???-???-???- ???-???-???-???-???- 29w 4d 179 lb 8 oz 121/67 Negative -???-???-???-???-???-???-???- ???-???-???-???-???- Negative 145 30 -???-???-???-???-???-???-???- ???-???-???-???-???- JV- no lof, vaginal bleeding, or cramping. tdap today 07/01/22 -???-???-???-???-???-???-???- ???-???-???-???-???- 31w 6d 181 lb 106/69 Negative -???-???-???-???-???-???-???- ???-???-???-???-???- Negative 155 31 -???-???-???-???-???-???-???- ???-???-???-???-???- JV- no lof, vaginal bleeding, or cramping. JV- no lof, vaginal bleeding, or c ramping. has baby shower this . 07/20/22 -???-???-???-???-???-???-???- ???-???-???-???-???- 34w 4d 182 lb 8 oz 118/75 Negative -???-???-???-???-???-???-???- ???-???-???-???-???- Negative 140 32 31 -???-???-???-???-???-???-???- ???-???-???-???-???- KW-no LOF, V B, ctx. +FM KW-no LOF, VB, ctx. +FM. Growth US ordered ACOG First Trimester First Trimester: Desire for , Alcohol, Tobacco Cessation, Illicit/Recreational Drug/Substance Use, Intimate Partner Violence, Barriers to care, Unstable Housing, Communication Barriers, Environmental/Work Hazards, Anticipated Course of Care, Toxoplasmosis Precations, Use of Any medications, Sexual activity, Exercise, Dental Care, Sauna/Hot tub use, Seat Belt use, Childbirth classes/Hospital facilities, , Travel, Indications for Ultrasound and Screening for Aneuploidy Second Trimester Second Trimester: Signs and Symptoms of Labor, Selecting a care provider, Reproductive Life Planning Contreception, Care Planning, Depression/Anxiety and Intimate Partner Violence; Discussed Tobacco Cessation Third Trimester Third Trimester: Pain Management Plans, Labor support person(s), Immediate Larc, Circumcision preference, Movement Monitoring, Signs and Symptoms of Preeclampsia, Labor Signs, Education, Depression and Depression Diagnostics Diagnostics Diagnostics: Blood Type O POSITIVE Antibody Screen NEGATIVE Glucose 1 Hr 50 gm 130 mg/dL (70-140) HIV 1 2 Antibody Non-Reactive (Nonreactive) Rubella IgG Antibody Reactive (Nonreactive) Hgb 11.7 g/dL (12.0-15.0) L Hct 34.6 % (37-47) L Chlamydia DNA (BRITTANY) Negative (Negative) N.gonorrhoeae DNA (BRITTANY) Negative (Negative) Details: HIV: Urine Culture: Sequential Screen: NIPT Screen: ROS Const Reports system reviewed and no additional complaints, except as documented Resp Reports system reviewed and no additional complaints, except as documented GI Reports system reviewed and no additional complaints, except as documented, Denies nausea and Denies vomiting Denies dysuria, Denies urinary hesitancy and Denies urinary urgency Psych Reports system reviewed and no additional complaints, except as documented Exam Const General: cooperative, healthy appearing and no acute distress Orientation: alert, awake and oriented x3 Neck Neck: normal visual inspection Resp Effort Inspection: normal respiratory effort and able to speak in complete sentences GI Inspection: normal to inspection Palpation: soft and other Other: gravid Neuro General: patient alert, patient awake and patient oriented x3 Psych Appearance: grossly normal Mental Status: mental status grossly normal Speech and Movement: speech and movement normal Attitude: cooperative Thought Process: normal Thought Content: normal Judgment: judgment good Results POC Urinalysis 2 Dip (Clinic) Office Urine Glucose Negative Last Edit by Ashleigh Cannon on 07/20/22 16:05 Office Urine Protein Negative Last Edit by Ashleigh Cannon on 07/20/22 16:05 Coding Level of Care Code OB Routine Diagnoses B12 deficiency E53.8 Ulcerative colitis K51.90 Supervision of normal first Z34.00 Z3A.34 Weeks of gestation: 34 weeks SGA (small for gestational age), , affecting care of mother, antepartum O36.5990 Assessment and Plan Assessment and Plan (1) B12 deficiency: Status: Acute Comment: repeat b12 in one month (2) Ulcerative colitis: Status: Acute Comment: diagnosed in [facility] resolved spontaneously, no rectal involvement, no meds. fu years later no abnormalities. b12 and iron levels checked. mfm consult at anatomy scan. (3) Supervision of normal first : Status: Acute Comment: PRR , MORENA 08/27/22, surprise Spouse Meir (4) : Status: Acute Qualifiers: Weeks of gestation: 34 weeks Qualified Code(s): Z3A.34 - 34 weeks gestation of Comment: NIPT low risk, discussed carrier testing. anatomy reviewed,nl. (5) SGA (small for gestational age), , affecting care of mother, antepartum: Status: Acute Comment: growth ultrasound ordered Orders: Orders POC Urinalysis 2 Dip (Clinic) Today OB Limited With Biometrics Today O26.849 - Uterine size-date discrepancy, unspecified trimester Plan Details Additional Comments: ACOG trimester education reviewed and updated. see problem list details for updated plan management information and see below for orders placed at this visit. GA appropriate handout given. 07/20/22 1621 <Electronically signed by Eda Bearden CNM> Date Eda Bearden CNM Cosigner Signature: Date (if applicable) CC: Altagracia Wagner DO Work Phone: Start: 07-01-2022 End: 07-01-2022 Adhesive Bandage Machine Operator Office Visit Report Procedure Note: See Note; NOTES: [facility] [address] [place], [place] [address]. [address] [place] [address] OFFICE VISIT Date of Service: 07/01/22 MR#: [id number] Acct: [id number] Name: MITZI SANTA Rep #: [id number] 6 : 1995 Provider: Dr. Tish Musa DO Age/Sex: 27/F Location: [facility] Status: Signed Intake Vital Signs 07/01/22 14:52 Height 5 ft 9 in Weight: 181 lb BMI 26.7 BP 106/69 Intake Visit Reasons: est ob 32w Chief Complaint: 32 Week Ob Paperboard Box Maker Required: No Is patient in pain?: No Allergies No Known Allergies Allergy (Verified 07/01/22 14:51) Medications multivitamin no.47-iron fum 27 mg-folate no.1 1 mg-dha 300 mg capsule (PNV-DHA) cap PO 01/21/22 [History Confirmed 07/01/22] Last Menstrual Period: 11/20/21 Zika: Zika virus screening: Negative : No PFSH PFSH Medical History History of vaccination against human papillomavirus Hx of ulcerative colitis Surgical History History of colonoscopy Hx of wisdom tooth extraction Family History Grandfather Colon cancer, Onset Age: 50 Paternal Grandmother Cancer uterine Social History adopted: No household members: spouse housing: house current occupational status: employed current occupation: Teacher current occupational exposures/hazards: No pets and animals: Yes pets and animals: dog(s) history of recent travel: Yes (November) out of state: Yes out of country: No sexually active: Yes Smoking Status: Never smoker alcohol intake: former details: socially prior to substance use type: does not use well-balanced diet: daily or most days caffeine: No eating out: 1-3 times/week during the past year weight has: remained stable what type of physical activity do you participate in: walking, running and yoga frequency: daily daniel/jew: Quaker seatbelt use: always do you feel safe at home: Yes additional social history: Spouse Erendira Dominique History 1 Elective abortions Hx Para 0 Spontaneous abortions Hx # Term Pregnancies Ectopic pregnancies Hx # Pregnancies Multiple births # of living children HPI est ob 32w Details: MITZI SANTA is a 27 year old who presents for routine OB visit. OB Visit MORENA Calculator Estimated Delivery Date Method Current WG Current Estimate 08/27/22 LMP (Certain) 31w 6d Expected Delivery Route/Plan Labor Preferences- CB/BF classes: [] labor support person: [] labor intervention preferences: [] pain management options preferred: [] cut cord/dad catch: [] : [] PP control planned: [] discussed possible routes of delivery and associated risks: [] special requests: [] Specific Issue/Plans Covid status: discussed Flu vaccine: discussed Tdap vaccine: [] Rhogam: [] LARC form signed: [] movement and labor precautions reviewed. Problem list reviewed and updated with the most current plan of care details and appropriate orders placed. Relevant counseling for the gestational age provided. Continue routine care and follow up unless otherwise noted in visit notes/problem list details Initial Weight: Not Recorded Date -???-???-???-???-???-???-???- ???-???-???-???-???- EGA Weight BP Urine Prot -???-???-???-???-???-???-???- ???-???-???-???-???- Glucose FHR FuHt Pres Dilation -???-???-???-???-???-???-???- ???-???-???-???-???- Effaced St Visit Note 01/27/22 -???-???-???-???-???-???-???- ???-???-???-???-???- 9w 5d 148 lb 118/82 118/82 -???-???-???-???-???-???-???- ???-???-???-???-???- 168 -???-???-???-???-???-???-???- ???-???-???-???-???- SM- CRL 3cm cons with LMP 02/25/22 -???-???-???-???-???-???-???- ???-???-???-???-???- 13w 6d 156 lb 108/64 Negative -???-???-???-???-???-???-???- ???-???-???-???-???- Negative 150 -???-???-???-???-???-???-???- ???-???-???-???-???- SM- no vb cr amping 03/21/22 -???-???-???-???-???-???-???- ???-???-???-???-???- 17w 2d 160 lb 110/68 Negative -???-???-???-???-???-???-???- ???-???-???-???-???- Negative 144 -???-???-???-???-???-???-???- ???-???-???-???-???- MH-No VB, cr amping. Has had headache a couple of times mild . Enc fluids, rest, tylenol ok. Denies vision changes. Nausea resolved. 04/20/22 -???-???-???-???-???-???-???- ???-???-???-???-???- 21w 4d 167 lb 104/62 Negative -???-???-???-???-???-???-???- ???-???-???-???-???- Negative 146 -???-???-???-???-???-???-???- ???-???-???-???-???- MH-No VB, LO F. No FM/ant placenta. Nl anatomy US reviewed. 05/20/22 -???-???-???-???-???-???-???- ???-???-???-???-???- 25w 6d 170 lb 8 oz 107/63 Negative -???-???-???-???-???-???-???- ???-???-???-???-???- Negative 140 26 -???-???-???-???-???-???-???- ???-???-???-???-???- SM- no vb lo f good fm no regular ctx 06/15/22 -???-???-???-???-???-???-???- ???-???-???-???-???- 29w 4d 179 lb 8 oz 121/67 Negative -???-???-???-???-???-???-???- ???-???-???-???-???- Negative 145 30 -???-???-???-???-???-???-???- ???-???-???-???-???- JV- no lof, vaginal bleeding, or cramping. tdap today 07/01/22 -???-???-???-???-???-???-???- ???-???-???-???-???- 31w 6d 181 lb 106/69 Negative -???-???-???-???-???-???-???- ???-???-???-???-???- Negative 155 31 -???-???-???-???-???-???-???- ???-???-???-???-???- JV- no lof, vaginal bleeding, or cramping. JV- no lof, vaginal bleeding, or c ramping. has baby shower this weekend. ACOG First Trimester First Trimester: Desire for , Alcohol, Tobacco Cessation, Illicit/Recreational Drug/Substance Use, Intimate Partner Violence, Barriers to care, Unstable Housing, Communication Barriers, Environmental/Work Hazards, Anticipated Course of Care, Toxoplasmosis Precations, Use of Any medications, Sexual activity, Exercise, Dental Care, Sauna/Hot tub use, Seat Belt use, Childbirth classes/Hospital facilities, , Travel, Indications for Ultrasound and Screening for Aneuploidy Second Trimester Second Trimester: Signs and Symptoms of Labor, Selecting a care provider, Reproductive Life Planning Contreception, Care Planning, Depression/Anxiety and Intimate Partner Violence; Discussed Tobacco Cessation Third Trimester Third Trimester: Pain Management Plans, Labor support person(s), Immediate Larc, Movement Monitoring, Signs and Symptoms of Preeclampsia and Education Diagnostics Diagnostics Diagnostics: Blood Type O POSITIVE Antibody Screen NEGATIVE Glucose 1 Hr 50 gm 130 mg/dL (70-140) HIV 1 2 Antibody Non-Reactive (Nonreactive) Rubella IgG Antibody Reactive (Nonreactive) Hgb 11.7 g/dL (12.0-15.0) L Hct 34.6 % (37-47) L Chlamydia DNA (BRITTANY) Negative (Negative) N.gonorrhoeae DNA (BRITTANY) Negative (Negative) Details: HIV: Urine Culture: Sequential Screen: NIPT Screen: ROS Const Denies fever(s) GI Reports as per HPI and Denies abdominal pain Reports as per HPI, Denies abnormal vaginal bleeding, Denies dysuria and Denies vaginal discharge Exam Const General: healthy appearing, comfortable and no acute distress GI Inspection: normal to inspection Palpation: soft and nontender Results POC Urinalysis 2 Dip (Clinic) Office Urine Glucose Negative Last Edit by Christina Low on 07/01/22 14:52 Office Urine Protein Negative Last Edit by Christina Low on 07/01/22 14:52 Coding Level of Care Code OB Routine Diagnoses B12 deficiency E53.8 Ulcerative colitis K51.90 Supervision of normal first Z34.00 Z3A.31 Weeks of gestation: 31 weeks Assessment and Plan Assessment and Plan (1) B12 deficiency: Status: Acute Comment: repeat b12 in one month (2) Ulcerative colitis: Status: Acute Comment: diagnosed in [facility] resolved spontaneously, no rectal involvement, no meds. fu years later no abnormalities. b12 and iron levels checked. mfm consult at anatomy scan. (3) Supervision of normal first : Status: Acute Comment: PRR , MORENA 08/27/22, surprise Spouse Meir (4) : Status: Acute Qualifiers: Weeks of gestation: 31 weeks Qualified Code(s): Z3A.31 - 31 weeks gestation of Comment: NIPT low risk, discussed carrier testing. anatomy reviewed,nl. Orders: Orders POC Urinalysis 2 Dip (Clinic) Today 07/01/22 1700 <Electronically signed by Tish Ramos DO> Date Tish Ramos DO [facility] Signature: Date (if applicable) CC: Altagracia Wagner DO Work Phone: Start: 06-15-2022 End: 06-15-2022 Adhesive Bandage Machine Operator Office Visit Report Procedure Note: See Note; NOTES: [facility] [address] [place] [address] [address] [place] [address] OFFICE VISIT Date of Service: 06/15/22 MR#: [id number] Acct: [id number] Name: MITZI SANTA Rep #: [id number] 3 : 1995 Provider: Dr. Tish Musa DO Age/Sex: 27/F Location: [facility] Status: Signed Intake Vital Signs 06/15/22 15:48 06/15/22 15:48 Height 5 ft 9 in 5 ft 9 in Weight: 179 lb 8 oz BMI 26.5 BP 121/67 H Intake Visit Reasons: 30 WK OB Paperboard Box Maker Required: No Is patient in pain?: No Allergies No Known Allergies Allergy (Verified 06/15/22 15:48) Medications multivitamin no.47-iron fum 27 mg-folate no.1 1 mg-dha 300 mg capsule (PNV-DHA) cap PO 01/21/22 [History Confirmed 06/15/22] Last Menstrual Period: 11/20/21 Zika: Zika virus screening: Negative : No PFSH PFSH Medical History History of vaccination against human papillomavirus Hx of ulcerative colitis Surgical History History of colonoscopy Hx of wisdom tooth extraction Family History Grandfather Colon cancer, Onset Age: 50 Paternal Grandmother Cancer uterine Social History adopted: No household members: spouse housing: house current occupational status: employed current occupation: Teacher current occupational exposures/hazards: No pets and animals: Yes pets and animals: dog(s) history of recent travel: Yes (November) out of state: Yes out of country: No sexually active: Yes Smoking Status: Never smoker alcohol intake: former details: socially prior to substance use type: does not use well-balanced diet: daily or most days caffeine: No eating out: 1-3 times/week during the past year weight has: remained stable what type of physical activity do you participate in: walking, running and yoga frequency: daily daniel/jew: Quaker seatbelt use: always do you feel safe at home: Yes additional social history: Spouse Erendira Dominique History 1 Elective abortions Hx Para 0 Spontaneous abortions Hx # Term Pregnancies Ectopic pregnancies Hx # Pregnancies Multiple births # of living children HPI 30 WK OB Details: MITZI SANTA is a 27 year old who presents for routine OB visit. OB Visit MORENA Calculator Estimated Delivery Date Method Current WG Current Estimate 08/27/22 LMP (Certain) 29w 4d Expected Delivery Route/Plan Labor Preferences- CB/BF classes: [] labor support person: [] labor intervention preferences: [] pain management options preferred: [] cut cord/dad catch: [] : [] PP control planned: [] discussed possible routes of delivery and associated risks: [] special requests: [] Specific Issue/Plans Covid status: discussed Flu vaccine: discussed Tdap vaccine: [] Rhogam: [] LARC form signed: [] movement and labor precautions reviewed. Problem list reviewed and updated with the most current plan of care details and appropriate orders placed. Relevant counseling for the gestational age provided. Continue routine care and follow up unless otherwise noted in visit notes/problem list details Initial Weight: Not Recorded Date -???-???-???-???-???-???-???- ???-???-???-???-???- EGA Weight BP Urine Prot -???-???-???-???-???-???-???- ???-???-???-???-???- Glucose FHR FuHt Pres Dilation -???-???-???-???-???-???-???- ???-???-???-???-???- Effaced St Visit Note 01/27/22 -???-???-???-???-???-???-???- ???-???-???-???-???- 9w 5d 148 lb 118/82 118/82 -???-???-???-???-???-???-???- ???-???-???-???-???- 168 -???-???-???-???-???-???-???- ???-???-???-???-???- SM- CRL 3cm cons with LMP 02/25/22 -???-???-???-???-???-???-???- ???-???-???-???-???- 13w 6d 156 lb 108/64 Negative -???-???-???-???-???-???-???- ???-???-???-???-???- Negative 150 -???-???-???-???-???-???-???- ???-???-???-???-???- SM- no vb cr amping 03/21/22 -???-???-???-???-???-???-???- ???-???-???-???-???- 17w 2d 160 lb 110/68 Negative -???-???-???-???-???-???-???- ???-???-???-???-???- Negative 144 -???-???-???-???-???-???-???- ???-???-???-???-???- MH-No VB, cr amping. Has had headache a couple of times mild . Enc fluids, rest, tylenol ok. Denies vision changes. Nausea resolved. 04/20/22 -???-???-???-???-???-???-???- ???-???-???-???-???- 21w 4d 167 lb 104/62 Negative -???-???-???-???-???-???-???- ???-???-???-???-???- Negative 146 -???-???-???-???-???-???-???- ???-???-???-???-???- MH-No VB, LO F. No FM/ant placenta. Nl anatomy US reviewed. 05/20/22 -???-???-???-???-???-???-???- ???-???-???-???-???- 25w 6d 170 lb 8 oz 107/63 Negative -???-???-???-???-???-???-???- ???-???-???-???-???- Negative 140 26 -???-???-???-???-???-???-???- ???-???-???-???-???- SM- no vb lo f good fm no regular ctx 06/15/22 -???-???-???-???-???-???-???- ???-???-???-???-???- 29w 4d 179 lb 8 oz 121/67 Negative -???-???-???-???-???-???-???- ???-???-???-???-???- Negative 145 30 -???-???-???-???-???-???-???- ???-???-???-???-???- JV- no lof, vaginal bleeding, or cramping. tdap today ACOG First Trimester First Trimester: Desire for , Alcohol, Tobacco Cessation, Illicit/Recreational Drug/Substance Use, Intimate Partner Violence, Barriers to care, Unstable Housing, Communication Barriers, Environmental/Work Hazards, Anticipated Course of Care, Toxoplasmosis Precations, Use of Any medications, Sexual activity, Exercise, Dental Care, Sauna/Hot tub use, Seat Belt use, Childbirth classes/Hospital facilities, , Travel, Indications for Ultrasound and Screening for Aneuploidy Second Trimester Second Trimester: Signs and Symptoms of Labor, Selecting a care provider, Reproductive Life Planning Contreception, Care Planning, Depression/Anxiety and Intimate Partner Violence; Discussed Tobacco Cessation Third Trimester Third Trimester: Pain Management Plans, Labor support person(s), Immediate Larc, Movement Monitoring, Signs and Symptoms of Preeclampsia and [facility] Education Diagnostics Diagnostics Diagnostics: Blood Type O POSITIVE Antibody Screen NEGATIVE Glucose 1 Hr 50 gm 130 mg/dL (70-140) HIV 1 2 Antibody Non-Reactive (Nonreactive) Rubella IgG Antibody Reactive (Nonreactive) Hgb 11.7 g/dL (12.0-15.0) L Hct 34.6 % (37-47) L Chlamydia DNA (BRITTANY) Negative (Negative) N.gonorrhoeae DNA (BRITTANY) Negative (Negative) Details: HIV: Urine Culture: Sequential Screen: NIPT Screen: ROS Const Denies fever(s) GI Reports as per HPI and Denies abdominal pain Reports as per HPI, Denies abnormal vaginal bleeding, Denies dysuria and Denies vaginal discharge Exam Const General: healthy appearing, comfortable and no acute distress GI Inspection: normal to inspection Palpation: soft and nontender Results POC Urinalysis 2 Dip (Clinic) Office Urine Glucose Negative Last Edit by Ashleigh Cannon on 06/15/22 15:59 Office Urine Protein Negative Last Edit by Ashleigh Cannon on 06/15/22 15:59 Immunizations Adacel(Tdap Adolesn/Adult)(PF) Performing Provider: Tish Ramos DO Administered by: Ashleigh Cannon on 06/15/22 15:59 Dose Route Admin Location Lot Number Expiration Date [facility] Manufactu rer 0.5 mL IM Left Deltoid [id number] 03/23/24 18383-737-01 [employer] VIS Given Date VIS Provided VIS Publication Date 06/15/22 Single Vaccine 20 Eligibility Eligibility Date Funding Source Not Applicable Coding Level of Care Code OB Routine Diagnoses B12 deficiency E53.8 Ulcerative colitis K51.90 Supervision of normal first Z34.00 Z3A.29 Weeks of gestation: 29 weeks Assessment and Plan Assessment and Plan (1) B12 deficiency: Status: Acute Comment: repeat b12 in one month (2) Ulcerative colitis: Status: Acute Comment: diagnosed in [facility] resolved spontaneously, no rectal involvement, no meds. fu years later no abnormalities. b12 and iron levels checked. mfm consult at anatomy scan. (3) Supervision of normal first : Status: Acute Comment: PRR , MORENA 08/27/22, surprise Spouse Meir (4) : Status: Acute Qualifiers: Weeks of gestation: 29 weeks Qualified Code(s): Z3A.29 - 29 weeks gestation of Comment: NIPT low risk, discussed carrier testing. anatomy reviewed,nl. Orders: Orders Tdap Immunization Today Z23 - Encounter for immunization POC Urinalysis 2 Dip (Clinic) Today 06/15/22 1636 <Electronically signed by Tish Ramos DO> Date Tish Ramos DO Cosigner Signature: Date (if applicable) CC: Altagracia Wagner DO Work Phone: Start: 05-20-2022 End: 05-20-2022 Adhesive Bandage Machine Operator Office Visit Report Procedure Note: See Note; NOTES: [facility] [address] [place] [address] OFFICE VISIT Date of Service: 05/20/22 MR#: [id number] Acct: [id number] Name: MITZI SANTA Rep #: [id number] : 1995 Provider: Dr. Isabella barrera MD Age/Sex: 27/F Location: [facility] Status: Signed Intake Vital Signs 05/20/22 15:39 05/20/22 15:47 Height 1.75 m 1.75 m Weight: 77.337 kg BMI 25.2 BP 107/63 Intake Visit Reasons: 26 WK OB Chief Complaint: 26 Week OB Paperboard Box Maker Required: No Is patient in pain?: No Allergies No Known Allergies Allergy (Unverified 05/20/22 15:39) Medications multivitamin no.47-iron fum 27 mg-folate no.1 1 mg-dha 300 mg capsule (PNV-DHA) cap PO 01/21/22 [History Confirmed 05/20/22] Last Menstrual Period: 11/20/21 Zika: Zika virus screening: Negative : No PFSH PFSH Medical History History of vaccination against human papillomavirus Hx of ulcerative colitis Surgical History History of colonoscopy Hx of wisdom tooth extraction Family History Grandfather Colon cancer, Onset Age: 50 Paternal Grandmother Cancer uterine Social History adopted: No household members: spouse housing: house current occupational status: employed current occupation: Teacher current occupational exposures/hazards: No pets and animals: Yes pets and animals: dog(s) history of recent travel: Yes (November) out of state: Yes out of country: No sexually active: Yes Smoking Status: Never smoker alcohol intake: former details: socially prior to substance use type: does not use well-balanced diet: daily or most days caffeine: No eating out: 1-3 times/week during the past year weight has: remained stable what type of physical activity do you participate in: walking, running and yoga frequency: daily daniel/jew: Quaker seatbelt use: always do you feel safe at home: Yes additional social history: Spouse Erendira Dominique History 1 Elective abortions Hx Para 0 Spontaneous abortions Hx # Term Pregnancies Ectopic pregnancies Hx # Pregnancies Multiple births # of living children HPI 26 WK OB Details: MITZI SANTA is a 27 year old who presents for routine OB visit. OB Visit MORENA Calculator Estimated Delivery Date Method Current WG Current Estimate 08/27/22 LMP (Certain) 25w 6d Expected Delivery Route/Plan Labor Preferences- CB/BF classes: [] labor support person: [] labor intervention preferences: [] pain management options preferred: [] cut cord/dad catch: [] : [] PP control planned: [] discussed possible routes of delivery and associated risks: [] special requests: [] Specific Issue/Plans Covid status: discussed Flu vaccine: discussed Tdap vaccine: [] Rhogam: [] LARC form signed: [] movement and labor precautions reviewed. Problem list reviewed and updated with the most current plan of care details and appropriate orders placed. Relevant counseling for the gestational age provided. Continue routine care and follow up unless otherwise noted in visit notes/problem list details Initial Weight: Not Recorded Date -???-???-???-???-???-???-???- ???-???-???-???-???- EGA Weight BP Urine Prot -???-???-???-???-???-???-???- ???-???-???-???-???- Glucose FHR FuHt Pres Dilation -???-???-???-???-???-???-???- ???-???-???-???-???- Effaced St Visit Note 01/27/22 -???-???-???-???-???-???-???- ???-???-???-???-???- 9w 5d 67.132 kg 118/82 118/82 -???-???-???-???-???-???-???- ???-???-???-???-???- 168 -???-???-???-???-???-???-???- ???-???-???-???-???- SM- CRL 3cm cons with LMP 02/25/22 -???-???-???-???-???-???-???- ???-???-???-???-???- 13w 6d 70.76 kg 108/64 Negative -???-???-???-???-???-???-???- ???-???-???-???-???- Negative 150 -???-???-???-???-???-???-???- ???-???-???-???-???- - no vb cr amping 03/21/22 -???-???-???-???-???-???-???- ???-???-???-???-???- 17w 2d 72.575 kg 110/68 Negative -???-???-???-???-???-???-???- ???-???-???-???-???- Negative 144 -???-???-???-???-???-???-???- ???-???-???-???-???- -No VB, cr amping. Has had headache a couple of times mild . Enc fluids, rest, tylenol ok. Denies vision changes. Nausea resolved. 04/20/22 -???-???-???-???-???-???-???- ???-???-???-???-???- 21w 4d 75.75 kg 104/62 Negative -???-???-???-???-???-???-???- ???-???-???-???-???- Negative 146 -???-???-???-???-???-???-???- ???-???-???-???-???- -No VB, LO F. No FM/ant placenta. Nl anatomy US reviewed. 05/20/22 -???-???-???-???-???-???-???- ???-???-???-???-???- 25w 6d 77.337 kg 107/63 Negative -???-???-???-???-???-???-???- ???-???-???-???-???- Negative 140 26 -???-???-???-???-???-???-???- ???-???-???-???-???- SM- no vb lo f good fm no regular ctx ACOG First Trimester First Trimester: Desire for , Alcohol, Tobacco Cessation, Illicit/Recreational Drug/Substance Use, Intimate Partner Violence, Barriers to care, Unstable Housing, Communication Barriers, Environmental/Work Hazards, Anticipated Course of Care, Toxoplasmosis Precations, Use of Any medications, Sexual activity, Exercise, Dental Care, Sauna/Hot tub use, Seat Belt use, Childbirth classes/Hospital facilities, , Travel, Indications for Ultrasound and Screening for Aneuploidy Diagnostics Diagnostics Diagnostics: Blood Type O POSITIVE Antibody Screen NEGATIVE Glucose 1 Hr 50 gm Pending HIV 1 2 Antibody Non-Reactive (Nonreactive) Rubella IgG Antibody Reactive (Nonreactive) Hgb 11.7 g/dL (12.0-15.0) L Hct 34.6 % (37-47) L Chlamydia DNA (BRITTANY) Negative (Negative) N.gonorrhoeae DNA (BRITTANY) Negative (Negative) Details: HIV: Urine Culture: Sequential Screen: NIPT Screen: Results POC Urinalysis 2 Dip (Clinic) Office Urine Glucose Negative Last Edit by Christina Low on 05/20/22 15:38 Office Urine Protein Negative Last Edit by Christina Low on 05/20/22 15:38 Coding Level of Care Code OB Routine Diagnoses Z3A.13 Weeks of gestation: 13 weeks Supervision of normal first Z34.00 Ulcerative colitis K51.90 Assessment and Plan Assessment and Plan (1) : Status: Acute Qualifiers: Weeks of gestation: 13 weeks Qualified Code(s): Z3A.13 - 13 weeks gestation of Comment: NIPT low risk, discussed carrier testing. anatomy reviewed,nl. (2) Supervision of normal first : Status: Acute Comment: PRR , MORENA 08/27/22, surprise Spouse Meir (3) Ulcerative colitis: Status: Acute Comment: diagnosed in college resolved spontaneously, no rectal involvement, no meds. fu years later no abnormalities. b12 and iron levels checked. mfm consult at anatomy scan. Orders: Orders POC Urinalysis 2 Dip (Clinic) Today 05/20/22 1607 <Electronically signed by Isabella Stoner MD> Date Isabella Stoner MD Cosigner Signature: Date (if applicable) CC: Altagracia Wagner DO Work Phone: Start: 04-20-2022 End: 04-20-2022 Adhesive Bandage Machine Operator Office Visit Report Procedure Note: See Note; NOTES: [facility] [address] [place] [address] OFFICE VISIT Date of Service: 04/20/22 MR#: [id number] Acct: [id number] Name: MITZI SANTA Rep #: [id number] : 1995 Provider: TRINIDAD parson Age/Sex: 27/F Location: [facility] Status: Signed Intake Vital Signs 04/20/22 14:47 04/20/22 14:52 Height 5 ft 9 in 5 ft 9 in Weight: 167 lb BMI 24.6 BP 104/62 Intake Visit Reasons: 22 WK OB Chief Complaint: 22 Week OB Paperboard Box Maker Required: No Is patient in pain?: No Allergies No Known Allergies Allergy (Unverified 04/20/22 14:52) Medications multivitamin no.47-iron fum 27 mg-folate no.1 1 mg-dha 300 mg capsule (PNV-DHA) cap PO 09/09/22 [History Confirmed 04/20/22] Last Menstrual Period: 11/20/21 Zika: Zika virus screening: Negative : No Nurse's Note: Patient given glucola and instructions to be done before next visit. PFSH PFSH Medical History History of vaccination against human papillomavirus Hx of ulcerative colitis Surgical History History of colonoscopy Hx of wisdom tooth extraction Family History Grandfather Colon cancer, Onset Age: 50 Paternal Grandmother Cancer uterine Social History adopted: No household members: spouse housing: house current occupational status: employed current occupation: Teacher current occupational exposures/hazards: No pets and animals: Yes pets and animals: dog(s) history of recent travel: Yes (November) out of state: Yes out of country: No sexually active: Yes Smoking Status: Never smoker alcohol intake: former details: socially prior to substance use type: does not use well-balanced diet: daily or most days caffeine: No eating out: 1-3 times/week during the past year weight has: remained stable what type of physical activity do you participate in: walking, running and yoga frequency: daily daniel/jew: Quaker seatbelt use: always do you feel safe at home: Yes additional social history: Spouse [facility] History 1 Elective abortions Hx Para 0 Spontaneous abortions Hx # Term Pregnancies Ectopic pregnancies Hx # Pregnancies Multiple births # of living children HPI 22 WK OB Details: MITZI SANTA is a 27 year old who presents for routine OB visit. OB Visit MORENA Calculator Estimated Delivery Date Method Current WG Current Estimate 08/27/22 LMP (Certain) 21w 4d Expected Delivery Route/Plan Labor Preferences- CB/BF classes: [] labor support person: [] labor intervention preferences: [] pain management options preferred: [] cut cord/dad catch: [] : [] PP control planned: [] discussed possible routes of delivery and associated risks: [] special requests: [] Specific Issue/Plans Covid status: discussed Flu vaccine: discussed Tdap vaccine: [] Rhogam: [] LARC form signed: [] Problem list reviewed and updated with the most current plan of care details and appropriate orders placed. Relevant counseling for the gestational age provided. Continue routine care and follow up unless otherwise noted in visit notes/problem list details Initial Weight: Not Recorded Date -???-???-???-???-???-???-???- ???-???-???-???-???- EGA Weight BP Urine Prot -???-???-???-???-???-???-???- ???-???-???-???-???- Glucose FHR FuHt Pres Dilation -???-???-???-???-???-???-???- ???-???-???-???-???- Effaced St Visit Note 01/27/22 -???-???-???-???-???-???-???- ???-???-???-???-???- 9w 5d 148 lb 118/82 118/82 -???-???-???-???-???-???-???- ???-???-???-???-???- 168 -???-???-???-???-???-???-???- ???-???-???-???-???- SM- CRL 3cm cons with LMP 02/25/22 -???-???-???-???-???-???-???- ???-???-???-???-???- 13w 6d 156 lb 108/64 Negative -???-???-???-???-???-???-???- ???-???-???-???-???- Negative 150 -???-???-???-???-???-???-???- ???-???-???-???-???- SM- no vb cr amping 03/21/22 -???-???-???-???-???-???-???- ???-???-???-???-???- 17w 2d 160 lb 110/68 Negative -???-???-???-???-???-???-???- ???-???-???-???-???- Negative 144 -???-???-???-???-???-???-???- ???-???-???-???-???- -No VB, cr amping. Has had headache a couple of times mild . Enc fluids, rest, tylenol ok. Denies vision changes. Nausea resolved. 04/20/22 -???-???-???-???-???-???-???- ???-???-???-???-???- 21w 4d 167 lb 104/62 Negative -???-???-???-???-???-???-???- ???-???-???-???-???- Negative 146 -???-???-???-???-???-???-???- ???-???-???-???-???- -No VB, LO F. No FM/ant placenta. Nl anatomy US reviewed. ACOG First Trimester First Trimester: Desire for , Alcohol, Tobacco Cessation, Illicit/Recreational Drug/Substance Use, Intimate Partner Violence, Barriers to care, Unstable Housing, Communication Barriers, Environmental/Work Hazards, Anticipated Course of Care, Toxoplasmosis Precations, Use of Any medications, Sexual activity, Exercise, Dental Care, Sauna/Hot tub use, Seat Belt use, Childbirth classes/Hospital facilities, , Travel, Indications for Ultrasound and Screening for Aneuploidy Diagnostics Diagnostics Diagnostics: Blood Type O POSITIVE Antibody Screen NEGATIVE HIV 1 2 Antibody Non-Reactive (Nonreactive) Rubella IgG Antibody Reactive (Nonreactive) Hgb 13.0 g/dL (12.0-15.0) Hct 38.3 % (37-47) Chlamydia DNA (BRITTANY) Negative (Negative) N.gonorrhoeae DNA (BRITTANY) Negative (Negative) Details: HIV: Urine Culture: Sequential Screen: NIPT Screen: Results POC Urinalysis 2 Dip (Clinic) Office Urine Glucose Negative Last Edit by Christina Low on 04/20/22 15:03 Office Urine Protein Negative Last Edit by Christina Low on 04/20/22 15:03 Coding Level of Care Code OB Routine Diagnoses Supervision of normal first Z34.00 Z3A.13 Weeks of gestation: 13 weeks Assessment and Plan Assessment and Plan (1) Supervision of normal first : Status: Acute Comment: PRR , MORENA 08/27/22, surprise Spouse Meir (2) : Status: Acute Qualifiers: Weeks of gestation: 13 weeks Qualified Code(s): Z3A.13 - 13 weeks gestation of Comment: NIPT low risk, discussed carrier testing. anatomy reviewed,nl. Orders: Orders POC Urinalysis 2 Dip (Clinic) Today HIV - [facility] Today Z34.90 - Encounter for supervision of normal , unspecified, unspecified trimester Syphilis Antibodies Today Z34.90 - Encounter for supervision of normal , unspecified, unspecified trimester Glucose Challenge Gest 1H 50g Today Z34.90 - Encounter for supervision of normal , unspecified, unspecified trimester CBC W/Diff, Automated Today Z34.90 - Encounter for supervision of normal , unspecified, unspecified trimester 04/20/22 8295 <Electronically signed by Sosa Mendenhall NP PAINTING CONTRACTOR-C> Date Sosa Abdirashidjose cruz Barillas Signature: Date (if applicable) CC: Altagracia Wagner DO Work Phone: Start: 03-21-2022 End: 03-21-2022 Adhesive Bandage Machine Operator Office Visit Report Procedure Note: See Note; NOTES: [facility] [address] [place] [address] OFFICE VISIT Date of Service: 03/21/22 MR#: [id number] Acct: [id number] Name: MITZI SANTA Rep #: [id number] : 1995 Provider: TRINIDAD parson Age/Sex: 26/F Location: [facility] Status: Signed Intake Vital Signs 03/21/22 15:20 Height 5 ft 9 in Weight: 160 lb BMI 23.6 BP 110/68 Intake Visit Reasons: 18 WK OB Chief Complaint: 18 Wk OB Paperboard Box Maker Required: No Is patient in pain?: No Allergies No Known Allergies Allergy (Unverified 03/21/22 15:20) Medications multivitamin no.47-iron fum 27 mg-folate no.1 1 mg-dha 300 mg capsule (PNV-DHA) cap PO 01/21/22 [History Confirmed 03/21/22] Last Menstrual Period: 11/20/21 Zika: Zika virus screening: Negative : No PFSH PFSH Medical History Hx of ulcerative colitis Surgical History Hx of wisdom tooth extraction Family History Grandfather Colon cancer, Onset Age: 50 Paternal Grandmother Cancer uterine Social History adopted: No household members: spouse housing: house current occupational status: employed current occupation: Teacher current occupational exposures/hazards: No pets and animals: Yes pets and animals: dog(s) history of recent travel: Yes (November) out of state: Yes out of country: No sexually active: Yes Smoking Status: Never smoker alcohol intake: former details: socially prior to substance use type: does not use well-balanced diet: daily or most days caffeine: No eating out: 1-3 times/week during the past year weight has: remained stable what type of physical activity do you participate in: walking, running and yoga frequency: daily daniel/jew: Quaker seatbelt use: always do you feel safe at home: Yes additional social history: Spouse Erendira Dominique History 1 Elective abortions Hx Para 0 Spontaneous abortions Hx # Term Pregnancies Ectopic pregnancies Hx # Pregnancies Multiple births # of living children HPI 18 WK OB Details: MITZI SANTA is a 26 year old who presents for routine OB visit. OB Visit MORENA Calculator Estimated Delivery Date Method Current WG Current Estimate 08/27/22 LMP (Certain) 17w 2d Expected Delivery Route/Plan Labor Preferences- CB/BF classes: [] labor support person: [] labor intervention preferences: [] pain management options preferred: [] cut cord/dad catch: [] : [] PP control planned: [] discussed possible routes of delivery and associated risks: [] special requests: [] Specific Issue/Plans Covid status: discussed Flu vaccine: discussed Tdap vaccine: [] Rhogam: [] LARC form signed: [] Problem list reviewed and updated with the most current plan of care details and appropriate orders placed. Relevant counseling for the gestational age provided. Continue routine care and follow up unless otherwise noted in visit notes/problem list details Initial Weight: Not Recorded Date -???-???-???-???-???-???-???- ???-???-???-???-???- EGA Weight BP Urine Prot -???-???-???-???-???-???-???- ???-???-???-???-???- Glucose FHR FuHt Pres Dilation -???-???-???-???-???-???-???- ???-???-???-???-???- Effaced St Visit Note 01/27/22 -???-???-???-???-???-???-???- ???-???-???-???-???- 9w 5d 148 lb 118/82 118/82 -???-???-???-???-???-???-???- ???-???-???-???-???- 168 -???-???-???-???-???-???-???- ???-???-???-???-???- SM- CRL 3cm cons with LMP 02/25/22 -???-???-???-???-???-???-???- ???-???-???-???-???- 13w 6d 156 lb 108/64 Negative -???-???-???-???-???-???-???- ???-???-???-???-???- Negative 150 -???-???-???-???-???-???-???- ???-???-???-???-???- SM- no vb cr amping 03/21/22 -???-???-???-???-???-???-???- ???-???-???-???-???- 17w 2d 160 lb 110/68 Negative -???-???-???-???-???-???-???- ???-???-???-???-???- Negative 144 -???-???-???-???-???-???-???- ???-???-???-???-???- MH-No VB, cr amping. Has had headache a couple of times mild . Enc fluids, rest, tylenol ok. Denies vision changes. Nausea resolved. ACOG First Trimester First Trimester: Desire for , Alcohol, Tobacco Cessation, Illicit/Recreational Drug/Substance Use, Intimate Partner Violence, Barriers to care, Unstable Housing, Communication Barriers, Environmental/Work Hazards, Anticipated Course of Care, Toxoplasmosis Precations, Use of Any medications, Sexual activity, Exercise, Dental Care, Sauna/Hot tub use, Seat Belt use, Childbirth classes/Hospital facilities, , Travel, Indications for Ultrasound and Screening for Aneuploidy Diagnostics Diagnostics Diagnostics: Blood Type O POSITIVE Antibody Screen NEGATIVE HIV 1 2 Antibody Non-Reactive (Nonreactive) Rubella IgG Antibody Reactive (Nonreactive) Hgb 13.0 g/dL (12.0-15.0) Hct 38.3 % (37-47) Chlamydia DNA (BRITTANY) Negative (Negative) N.gonorrhoeae DNA (BRITTANY) Negative (Negative) Details: HIV: Urine Culture: Sequential Screen: NIPT Screen: ROS Const Reports system reviewed and no additional complaints, except as documented GI Denies abdominal pain, Denies nausea and Denies vomiting Exam Const General: cooperative Nutritional Appearance: well nourished GI Palpation: soft, nontender and other (gravid) Results POC Urinalysis 2 Dip (Clinic) Office Urine Glucose Negative Last Edit by Christina Low on 03/21/22 15:23 Office Urine Protein Negative Last Edit by Christina Low on 03/21/22 15:23 Coding Level of Care Code OB Routine Diagnoses Supervision of normal first Z34.00 Z3A.13 Weeks of gestation: 13 weeks Assessment and Plan Assessment and Plan (1) Supervision of normal first : Status: Acute Comment: PRR , MORENA 08/27/22, surprise Spouse Meir (2) : Status: Acute Qualifiers: Weeks of gestation: 13 weeks Qualified Code(s): Z3A.13 - 13 weeks gestation of Comment: NIPT low risk, discussed carrier testing Orders: Orders POC Urinalysis 2 Dip (Clinic) Today Plan problem list reviewed and updated for most current plan of care and appropriate orders placed. Relevant counseling for the gestational age appropriate provided and ACOG education checklist updated. Continue routine care and follow up. 03/21/22 1541 <Electronically signed by Sosa Mendenhall NP PAINTING CONTRACTOR-C> Date Sosa Mendenhall NP PAINTING CONTRACTOR-C Cosigner Signature: Date (if applicable) CC: Altagracia aWgner DO Work Phone: Start: 02-25-2022 End: 02-25-2022 Adhesive Bandage Machine Operator Office Visit Report Procedure Note: See Note; NOTES: [facility] [address] [place] [address] OFFICE VISIT Date of Service: 02/25/22 MR#: [id number] Acct: [id number] Name: MITZI SANTA Rep #: [id number] : 1995 Provider: Dr. Isabella barrera MD Age/Sex: 26/F Location: [facility] Status: Signed Intake Vital Signs 02/25/22 15:34 02/25/22 15:34 Height 5 ft 9 in 5 ft 9 in Weight: 156 lb BMI 23.0 BP 108/64 Intake Visit Reasons: 14 WK OB Chief Complaint: est ob Paperboard Box Maker Required: No Is patient in pain?: No Allergies No Known Allergies Allergy (Unverified 01/21/22 14:34) Medications multivitamin no.47-iron fum 27 mg-folate no.1 1 mg-dha 300 mg capsule (PNV-DHA) cap PO 01/21/22 [History Confirmed 02/25/22] Last Menstrual Period: 11/20/21 Zika: Zika virus screening: Negative : No PFSH PFSH Medical History Hx of ulcerative colitis Surgical History Hx of wisdom tooth extraction Family History (Updated 02/25/22 @ 15:[address] Isabella Stoner MD) Grandfather Colon cancer, Onset Age: 50 Paternal Grandmother Cancer uterine Social History adopted: No household members: spouse housing: house current occupational status: employed current occupation: Teacher current occupational exposures/hazards: No pets and animals: Yes pets and animals: dog(s) history of recent travel: Yes (November) out of state: Yes out of country: No sexually active: Yes Smoking Status: Never smoker alcohol intake: former details: socially prior to substance use type: does not use well-balanced diet: daily or most days caffeine: No eating out: 1-3 times/week during the past year weight has: remained stable what type of physical activity do you participate in: walking, running and yoga frequency: daily daniel/jew: Quaker seatbelt use: always do you feel safe at home: Yes additional social history: Spouse Erendira Dominique History 1 Elective abortions Hx Para 0 Spontaneous abortions Hx # Term Pregnancies Ectopic pregnancies Hx # Pregnancies Multiple births # of living children HPI 14 WK OB Details: MITZI SANTA is a 26 year old who presents for routine OB visit. OB Visit MORENA Calculator Estimated Delivery Date Method Current WG Current Estimate 08/27/22 LMP (Certain) 13w 6d Expected Delivery Route/Plan Labor Preferences- CB/BF classes: [] labor support person: [] labor intervention preferences: [] pain management options preferred: [] cut cord/dad catch: [] : [] PP control planned: [] discussed possible routes of delivery and associated risks: [] special requests: [] Specific Issue/Plans Covid status: discussed Flu vaccine: discussed Tdap vaccine: [] Rhogam: [] LARC form signed: [] Problem list reviewed and updated with the most current plan of care details and appropriate orders placed. Relevant counseling for the gestational age provided. Continue routine care and follow up unless otherwise noted in visit notes/problem list details Initial Weight: Not Recorded Date -???-???-???-???-???-???-???- ???-???-???-???-???- EGA Weight BP Urine Prot -???-???-???-???-???-???-???- ???-???-???-???-???- Glucose FHR FuHt Pres Dilation -???-???-???-???-???-???-???- ???-???-???-???-???- Effaced St Visit Note 01/27/22 -???-???-???-???-???-???-???- ???-???-???-???-???- 9w 5d 148 lb 118/82 118/82 -???-???-???-???-???-???-???- ???-???-???-???-???- 168 -???-???-???-???-???-???-???- ???-???-???-???-???- SM- CRL 3cm cons with LMP 02/25/22 -???-???-???-???-???-???-???- ???-???-???-???-???- 13w 6d 156 lb 108/64 Negative -???-???-???-???-???-???-???- ???-???-???-???-???- Negative 150 -???-???-???-???-???-???-???- ???-???-???-???-???- SM- no vb cr amping ACOG First Trimester First Trimester: Desire for , Alcohol, Tobacco Cessation, Illicit/Recreational Drug/Substance Use, Intimate Partner Violence, Barriers to care, Unstable Housing, Communication Barriers, Environmental/Work Hazards, Anticipated Course of Care, Toxoplasmosis Precations, Use of Any medications, Sexual activity, Exercise, Dental Care, Sauna/Hot tub use, Seat Belt use, Childbirth classes/Hospital facilities, , Travel, Indications for Ultrasound and Screening for Aneuploidy Diagnostics Diagnostics Diagnostics: Blood Type O POSITIVE Antibody Screen NEGATIVE HIV 1 2 Antibody Non-Reactive (Nonreactive) Rubella IgG Antibody Reactive (Nonreactive) Hgb 13.0 g/dL (12.0-15.0) Hct 38.3 % (37-47) Chlamydia DNA (BRITTANY) Negative (Negative) N.gonorrhoeae DNA (BRITTANY) Negative (Negative) Details: HIV: Urine Culture: Sequential Screen: NIPT Screen: Results POC Urinalysis 2 Dip (Clinic) Office Urine Glucose Negative Last Edit by Lisa Parker on 02/25/22 15:38 Office Urine Protein Negative Last Edit by Lisa Parker on 02/25/22 15:38 Coding Level of Care Code OB Routine Diagnoses Ulcerative colitis K51.90 Supervision of normal first Z34.00 Z3A.13 Weeks of gestation: 13 weeks Assessment and Plan Assessment and Plan (1) Ulcerative colitis: Status: Acute Comment: diagnosed in college resolved spontaneously, no rectal involvement, no meds. fu years later no abnormalities. b12 and iron levels checked. mfm consult at anatomy scan. (2) Supervision of normal first : Status: Acute Comment: PRR , MORENA 08/27/22, surprise Spouse Meir (3) : Status: Acute Qualifiers: Weeks of gestation: 13 weeks Qualified Code(s): Z3A.13 - 13 weeks gestation of Comment: NIPT low risk, discussed carrier testing Orders: Orders POC Urinalysis 2 Dip (Clinic) Today 02/25/22 4726 <Electronically signed by Isabella Stoner MD> Date Isabella Stoner MD Cosigner Signature: Date (if applicable) CC: Altagracia Wagner DO Work Phone: Start: 01-27-2022 End: 01-27-2022 Adhesive Bandage Machine Operator Office Visit Report Procedure Note: See Note; NOTES: [facility] [address] [place] [address] OFFICE VISIT Date of Service: 01/27/22 MR#: [id number] Acct: [id number] Name: MITZI SANTA Rep #: [id number] : 1995 Provider: Dr. Isabella barrera MD Age/Sex: 26/F Location: [facility] Status: Signed Intake Vital Signs 01/27/22 13:59 01/27/22 14:02 Height 5 ft 9 in 5 ft 9 in Weight: 148 lb BMI 21.8 21.8 BP 118/82 H 118/82 H Intake Visit Reasons: NOB LMP 11/20 Chief Complaint: NEW OB LMP Paperboard Box Maker Required: No Is patient in pain?: No Allergies No Known Allergies Allergy (Unverified 01/21/22 14:34) Medications multivitamin no.47-iron fum 27 mg-folate no.1 1 mg-dha 300 mg capsule (PNV-DHA) cap PO 01/21/22 [History Confirmed 01/21/22] Last Menstrual Period: 11/20/21 Zika: Zika virus screening: Negative : No PFSH PFSH Medical History Hx of ulcerative colitis Surgical History Hx of wisdom tooth extraction Family History Grandfather Colon cancer, Onset Age: 50 Paternal Grandmother Ovarian cancer, Onset Age: 68 Maternal Social History adopted: No household members: spouse housing: house service: No current occupational status: employed current occupation: Teacher current occupational exposures/hazards: No pets and animals: Yes pets and animals: dog(s) history of recent travel: Yes (November) out of state: Yes out of country: No sexually active: Yes current gender identity: female Smoking Status: Never smoker alcohol intake: former details: socially prior to substance use type: does not use well-balanced diet: daily or most days caffeine: No eating out: 1-3 times/week during the past year weight has: remained stable what type of physical activity do you participate in: walking, running and yoga frequency: daily daniel/jew: Quaker seatbelt use: always do you feel safe at home: Yes additional social history: Spouse Erendira Dominique History 1 Elective abortions Hx Para 0 Spontaneous abortions Hx # Term Pregnancies Ectopic pregnancies Hx # Pregnancies Multiple births # of living children HPI NOB LMP 11/20 Details: MITZI SANTA is a 26 year old who presents for New OB visit. OB Visit MORENA Calculator Estimated Delivery Date Method Current WG Current Estimate 08/27/22 LMP (Certain) 9w 5d Comments: HIV: Urine Culture: Sequential Screen: NIPT Screen: Estimated Due Date: 08/27/22 Expected Delivery Route/Plan Labor Preferences- CB/BF classes: [] labor support person: [] labor intervention preferences: [] pain management options preferred: [] cut cord/dad catch: [] : [] PP control planned: [] discussed possible routes of delivery and associated risks: [] special requests: [] Specific Issue/Plans Covid status: discussed Flu vaccine: discussed Tdap vaccine: [] Rhogam: [] LARC form signed: [] Problem list reviewed and updated with the most current plan of care details and appropriate orders placed. Relevant counseling for the gestational age provided. Continue routine care and follow up unless otherwise noted in visit notes/problem list details Initial Weight: Not Recorded Date -???-???-???-???-???-???-???- ???-???-???-???-???- EGA Weight BP Urine Prot -???-???-???-???-???-???-???- ???-???-???-???-???- Glucose FHR FuHt Pres Dilation -???-???-???-???-???-???-???- ???-???-???-???-???- Effaced St Visit Note 01/27/22 -???-???-???-???-???-???-???- ???-???-???-???-???- 9w 5d 148 lb 118/82 118/82 -???-???-???-???-???-???-???- ???-???-???-???-???- 168 -???-???-???-???-???-???-???- ???-???-???-???-???- SM- CRL 3cm cons with LMP Menstrual History Last Menstrual Period: 11/20/21 Reported LMP: definite Normal amount/duration: Yes Frequency in days: 30 On hormonal BC at conception: No hCG+: 12/25/21 Antepartum Record Genetic Screening: Congenital Heart Defect: Other, Neural Tube Defect: Other, Hemoglobinopathy Or Carrier: Other, Cystic Fibrosis: Other, Chromosome Abnormality: Other, Sohan-Sachs: Other, Hemophilia: Other, Intellectual Disability/Autism: Other, Recurrent Loss/Stillbirth: Other, Other Structural Defect: Other, Other Genetic Disease: Other and Maternal Metabolic Disorder: Other Infection History: Live with someone with TB or Exposed to TB: No, Patient or Partner has history of Genital Herpes: No, Rash or Viral illness since last mentrual period: No, Prior GBS-Infected child: No, History of STD: No, HIV Infection: No, History of Hepatitis: No, Recent travel outside of [place]: No, Concern for hepatitis exposure: No and Varicella immune: Yes (immune) Comments: Not Covid Vaccinated Medical History Medical History: Positive: Operations/hospitalizations (wisdom teeth extraction), Relevant family history (Maternal Gradfather colon cancer(50's), Paternal grandmother ovarian cancer(68)) and Other (One flare up of ulcerative colitis in college, none since.) and Negative: Diabetes, Hypertension, Heart disease, Auto-immune disorder, Kidney disease/UTI, Neurologic/epilepsy, Psychiatric, Depression/ depression, Hepatitis/liver disease, Varicosities/phlebitis, Thyroid dysfunction, Trauma/domestic violence, History of blood transfusions, D (Rh) Sensitized, Pulmonary (e.g.,TB,Asthma), Seasonal allergies, Drug/latex allergies/reactions, Breast, Senior Property Manager surgery, Anesthetic complications, History of abnormal pap, Uterine anomaly/clare, Infertility and Anti- retroviral treatment ACOG First Trimester First Trimester: Desire for , Alcohol, Tobacco Cessation, Illicit/Recreational Drug/Substance Use, Intimate Partner Violence, Barriers to care, Unstable Housing, Communication Barriers, Environmental/Work Hazards, Anticipated Course of Care, Nurtrition and weight gain, Toxoplasmosis Precations, Use of Any medications, Sexual activity, Exercise, Dental Care, Sauna/Hot tub use, Seat Belt use, Childbirth classes/Hospital facilities, , Travel, Indications for Ultrasound and Screening for Aneuploidy ROS Const Reports system reviewed and no additional complaints, except as documented, Reports fatigue and Denies fever(s) Eyes Reports system reviewed and no additional complaints, except as documented ENT Reports system reviewed and no additional complaints, except as documented Card Denies chest pain and Denies dyspnea Resp Reports system reviewed and no additional complaints, except as documented, Denies cough and Denies dyspnea GI Denies abdominal pain and Reports nausea Reports system reviewed and no additional complaints, except as documented Musc Reports system reviewed and no additional complaints, except as documented Skin/Breast Reports system reviewed and no additional complaints, except as documented Neuro Yes system reviewed and no additional complaints, except as documented Psych Reports system reviewed and no additional complaints, except as documented Endo Reports system reviewed and no additional complaints, except as documented and Reports fatigue Exam Const General: healthy appearing, comfortable and no acute distress Orientation: alert [facility] Head: normal to inspection, normocephalic and atraumatic Ears: hearing grossly normal bilaterally and external ears normal Nose: external nose normal and nares normal Mouth: oral mucosae normal Teeth and gingiva: dentition normal Eyes General: appearance normal, both eyes and all related structures Neck Neck: normal visual inspection, no lymphadenopathy and supple Thyroid: thyroid normal Chest Chest palpation inspection: normal inspection of the chest Breast inspection: normal inspection of the breasts and normal inspection of the axillae Breast palpation: normal palpation of the breasts and normal palpation of the axillae Resp Effort Inspection: normal respiratory effort GI Inspection: normal to inspection Palpation: soft and no hepatosplenomegaly General: bladder normal to palpation External Female Exam: normal external appearance and normal appearance of the urethra Urethra: normal appearance of the urethra Speculum Exam - Vagina: normal appearance of the vagina and normal vaginal discharge Speculum Exam - Cervix: normal appearance of the cervix Bimanual Exam- Vagina Uterus: normal bimanual exam, bladder normal to palpation, non-tender and other Bimanual Exam- Adnexa, other: non-tender Skin General: no rashes or lesions noted Neuro Motor: muscle tone normal throughout and no movement abnormalities noted Extrem General: normal to inspection and full ROM Supplemental Info ACOG book given and patient encouraged to read about nutrition, exercise, weight gain, and food avoidance in . Coding Level of Care Code OB Routine Diagnoses Supervision of normal first Z34.00 Z3A.09 Weeks of gestation: 9 weeks Ulcerative colitis K51.90 Assessment and Plan Assessment and Plan (1) Supervision of normal first : Status: Acute Comment: , MORENA 08/27/22, Spouse Meir (2) : Status: Acute Qualifiers: Weeks of gestation: 9 weeks Qualified Code(s): Z3A.09 - 9 weeks gestation of Comment: discussed genetic and carrier testing (3) Ulcerative colitis: Status: Acute Comment: diagnosed in [facility] resolved spontaneously, no rectal involvement, no meds. fu years later no abnormalities. b12 and iron levels checked. m consult at anatomy scan. Orders: Orders Type Screen Today Z34 - Encounter for supervision of normal , unspecified, unspecified trimester Hepatitis B Surface Antigen Today Z34 - Encounter for supervision of normal , unspecified, unspecified trimester Hepatitis C Antibody Today Z34 - Encounter for supervision of normal , unspecified, unspecified trimester HIV - [facility] Today Z34 - Encounter for supervision of normal , unspecified, unspecified trimester Syphilis Antibodies Today Z34 - Encounter for supervision of normal , unspecified, unspecified trimester Rubella IgG Today Z34 - Encounter for supervision of normal , unspecified, unspecified trimester CBC W/Diff, Automated Today Z34 - Encounter for supervision of normal , unspecified, unspecified trimester PAP I-G w/rfx hrHPV-Aptima Today Z34.90 - Encounter for supervision of normal , unspecified, unspecified trimester Culture, Urine Today Z34.90 - Encounter for supervision of normal , unspecified, unspecified trimester Chlamydia/GC BRITTANY aptima Today Z34.90 - Encounter for supervision of normal , unspecified, unspecified trimester Urine Drug Screen ([facility]IST[facility]) Today Z34.90 - Encounter for supervision of normal , unspecified, unspecified trimester Plan Patient oriented to practice and discussed care expectations and screenings. ACOG book offered to patient. Discussed routine and specially indicated labs if needed- patient consents to testing. See problem list details for plan information. Optional screening including maternal carrier screenings, neural tube defect screening, genetic screening options including quad screen, nuchal translucency, sequential screening, and NIPT screening offered to patient and patient chose: nipt only 01/27/22 1516 <Electronically signed by Isabella Stoner MD> Date Isabella Stoner MD Cosigner Signature: Date (if applicable) CC: Altagracia Wagner DO Work Phone: Plan of Treatment Date Care Activity Detail Author Start: 08-30-2021 Procedure Education Eprescribed prescriptions (G8553) [facility] Work Phone: Start: 03-12-2021 Cytp cerv/vag auto thin layer prep mnl screen Thin prep Pap (22642) [facility] Work Phone: Start: 03-12-2021 Provider Instructions for Treatment [facility] Work Phone: Start: 06-01-2020 Procedure Education Eprescribed prescriptions (G8553) [facility] Work Phone: Start: 06-01-2020 Provider Instructions for Treatment Reviewed Lab [facility] Work Phone: Immunizations Immunization Date Immunization Notes Care Provider Monet kennedy 03-15-2020 tetanus toxoid, adsorbed Altagracia Wagner [facility] Work Phone: 05-15-2015 Hepatitis B vaccine (recombinant), CpG adjuvanted Altagracia Wagner [facility] Work Phone: 05-15-2006 human papilloma viru s vaccine, quadrivalent Altagracia Wagner [facility]; [facility] Work Phone: Payers Date Payer Category Payer Unknown [id number] Unknown [id number] Unknown [facility] Unknown [id number] Social History Date Type Detail Facility Alcohol Use Alcohol Use [facility] Work Phone: Comment on above: 1-2 times per month Exercise History: Exercise History: [facility] Work Phone: Comment on above: moderate Living Situation: Living Situation: [facility] Work Phone: Exercise History: Exercise History: [facility] Work Phone: Comment on above: moderate Living Situation: Living Situation: [facility] Work Phone: Instructions Note Date & Type Note Facility Instructions Name Patient Instructions Indication:Non-smoker Start: 1 Instruction Type:Provider Instructions for Treatment How to Access Health Information Online using Patient Portal and 3rd Democrat Apps Indication:Non-smoker Start: 1 Instruction Type:Patient Education [facility] Work Phone: Instructions Note Date & Type Note Facility Instructions Name Patient Instructions Indication:BMI 22.0-22.9, adult Start: 2 Instruction Type:Provider Instructions for Treatment How to Access Health Information Online using Patient Portal and [employer] Apps Indication:BMI 22.0-22.9, adult Start: 2 Instruction Type:Patient Education Patient Instructions Indication:Non-smoker Start: 1 Instruction Type:Provider Instructions for Treatment How to Access Health Information Online using Patient Portal and [employer] Apps Indication:Non-smoker Start: 1 Instruction Type:Patient Education [facility] Work Phone: Instructions Note Date & Type Note Facility Instructions Name Patient Instructions Indication:BMI 22.0-22.9, adult Start: 2 Instruction Type:Provider Instructions for Treatment How to Access Health Information Online using Patient Portal and [employer] Apps Indication:BMI 22.0-22.9, adult Start: 2 Instruction Type:Patient Education Patient Instructions Indication:Non-smoker Start: 1 Instruction Type:Provider Instructions for Treatment How to Access Health Information Online using Patient Portal and [employer] Apps Indication:Non-smoker Start: Instruction Type:Patient Education [facility] Work Phone: Summary Purpose Family History No Family History Records FoundNo Family History Records FoundNo Family History Records Found Advance Directives No Advanced Directives Records Found Name Dates Details Immunization Registry Lillian - Effective on 06/01/2020. Expiration date unspecified Effective:01-Jun-2020 Name Dates Details Immunization Registry Lillian - Effective on 06/01/2020. Expiration date unspecified Effective:01-Jun-2020 Name Dates Details Immunization Registry Lillian - Effective on 06/01/2020. Expiration date unspecified Effective:01-Jun-2020 Instructions Name Dates Details Patient Instructions Indication:Non-smoker Start:01-Jun-2020 Instruction Type:Provider Instructions for Treatment How to Access Health Informa tion Online using Patient Portal and [employer] Apps Indication:Non-smoker Start:01-Jun-2020 Instruction Type:Patient Education Additional Source Comments INFORMATION SOURCE (unrecogn ized section and content) DATE CREATED AUTHOR 10/31/2017 [employer]ne [employer] DATE CREATED AUTHOR AUTHOR'S ORGANIZ ATION 07/21/2018 [facility] DATE CREATED AUTHOR AUTHOR'S ORGANIZ ATION 11/08/2023 [facility] FOR RECORDS PERTAINING TO PATIENTS WHO ARE OR HAVE BEEN ENROLLED IN A CHEMICAL DEPENDENCY/SUBSTANCEABUSE PROGRAM, SOME INFORMATION MAY BE OMITTED. This clinical summary was aggregated from multiple sources. Caution should be exercised in using it in the provision of clinical care. This summary normalizes information from multiple sources, and as a consequence, information in this document may materially change the coding, format and clinical context of patient data. In addition, data may be omitted in some cases. CLINICAL DECISIONS SHOULD BE BASED ON THE PRIMARY CLINICAL RECORDS. [facility]. provides no warranty or guarantee of the accuracy or completeness of information in this document.
[2024-03-04 06:46] VITALS: PULSE 71; O2SAT 99
[2024-03-04 06:47] VITALS: BP 119/65; PULSE 69; RESP 14; TEMP 36.4
[2024-03-04 07:09] LABS: Absolute Lymphocyte Count 1.63 X10^3/uL (0.83-4.51); Absolute Neutrophil Count 5.2 X10^3/uL (2.0-7.7); Basophil# 0.01 X10^3/uL; Basophil% 0.1 % (0-1); Eosinophil# 0.09 X10^3/uL; Eosinophils% 1.2 % (0-5); Hematocrit 32.5 % (37-47); Lymphocyte # 1.63 X10^3/ul (0.83-4.51); Lymphocyte % 22.3 % (19-41); Mean Corp Hgb Conc 33.8 g/dL (32-36); Mean Corpuscular Hgb 29.3 pg (27.0-32.0); Mean Corpuscular Volume 86.4 fL (81-99); Mean Platelet Vol. 10.9 fl (6.2-12.0); Monocyte# 0.38 X10^3/uL; Monocyte% 5.2 % (0-10); NRBC Flagged by Analyzer 0 % (0-5); Neutrophil # 5.17 X10^3/uL (2.7-7.7); Neutrophil % 70.8 % (47-70); Platelet Count 194 K/mm3 (150-450); RBC Distribution Width CV 12.5 % (11.6-14.6); RBC Distribution Width SD 39.6 fl (35.1-43.9); Red Blood Count 3.76 M/mm3 (4.2-5.4); White Blood Count 7.3 K/mm3 (4.4-11.0)
[2024-03-04] MEDS: Terbutaline 1 MG/ML Vial 0.25 MG SC (07:35)
[2024-03-04 07:46] VITALS: BP 115/61; PULSE 70; RESP 16; TEMP 36.4; O2SAT 99
--- NOTE | 2024-03-04 07:56 | HP.PCM.OB_ITS ---
HPI - General HPI Narrative MITZI SANTA, is a 28 F who presents due to breech presentation. she denies any bleeding or abnormal discharge. she denies any regular ctx. Maternal Data Information MORENA Calculator Estimated Delivery Date Method Current WG Current Estimate 03/23/24 Ultrasound #1 37w 2d Other Estimates 03/18/24 Ultrasound #2 38w 0d PFSH PFSH Medical History Blood in stool RLQ abdominal pain Tick bite Vaginal pain MRSA infection History of vaccination against human papillomavirus Hx of ulcerative colitis Home Medications ?Medication ?Instructions ?Recorded ?Last Taken ?Type NK 07/31/23 Unknown History Allergy/AdvReac Type Severity Reaction Status Date / Time No Known Allergies Allergy Verified 03/04/24 06:48 Family History Grandfather Colon cancer, Onset Age: 50 Paternal Grandmother Cancer uterine Surgical History History of colonoscopy Hx of wisdom tooth extraction Social History adopted: No household members: spouse and children housing: house current occupational status: employed current occupation: Teacher current occupational exposures/hazards: No pets and animals: Yes pets and animals: dog(s) history of [place] out of state: Yes out of country: No sexually active: Yes Smoking Status: Never smoker alcohol intake: former details: socially prior to substance use type: does not use well-balanced diet: daily or most days caffeine: No eating out: 1-3 times/week during the past year weight has: remained stable what type of physical activity do you participate in: walking, running and yoga frequency: daily daniel/latter-day: Quaker seatbelt use: always do you feel safe at home: Yes additional social history: Spouse Meir- Marcus Trip History 2 Elective abortions Hx Para 1 Spontaneous abortions Hx # Term Pregnancies 1 Ectopic pregnancies Hx # Pregnancies Multiple births # of living children 1 Past Pregnancies Del. Date Name GA/Weeks Outcome Route Bth Weight Gen Labor Lgth Anesthesia Del Locatn Provider FOB 08/31/22 Ean 40 live - full term 6lbs 13oz Female [facility] Ivonne Barbash Visit Details Expected Delivery Route/Plan Labor Preferences- CB/BF classes: no labor support person: Meir labor intervention preferences: [] pain management options preferred: epidural if needed cut cord/dad catch: cord : yes PP control planned: discussed discussed possible routes of delivery and associated risks: [] special requests: [] Plans Covid status: [] Flu vaccine: [] Tdap vaccine: [] Rhogam: NA LARC form signed: yes Problem list reviewed and updated with the most current plan of care details and appropriate orders placed. Relevant counseling for the gestational age provided. Continue routine care and follow up unless otherwise noted in visit notes/problem list details OB Flowsheet Initial Weight: 149 lb Date -?-?-?-?-?-?--?-?-?-?-?-?- EGA Weight BP Urine Prot -?-?-?-?-?-?-?-?-?-?-?-?- Glucose FHR FuHt Pres Dilation -?-?-?-?-?-?-?-?-?-?-?-?- Effaced St Visit Note 08/16/23 -?-?-?-?-?-?-?-?-?-?-?-?- 8w 4d 149 lb (+0 oz) 104/67 -?-?-?-?-?-?-?-?-?-?-?-?- 171 -?-?-?-?-?-?-?-?-?-?-?-?- LC- CRL con with previous scan 8w4d. accepts nipt. 09/15/23 -?-?-?-?-?-?-?-?-?-?-?-?- 12w 6d 153 lb (+4 lb) 124/79 Negative -?-?-?-?-?-?-?-?-?-?-?-?- Negative 170 -?-?-?-?-?-?-?-?-?-?-?-?- JV- no cramping or spotting. just finished track season. anatomy us ordered. 10/19/23 -?-?-?-?-?-?-?-?-?-?-?-?- 17w 5d 152 lb 8 oz (+3 lb 8 oz) 119/71 Negative -?-?-?-?-?-?-?-?-?-?-?-?- Negative 150 -?-?-?-?-?-?-?-?-?-?-?-?- kw- no vb/crampi ng. sending order for third time for anatomy US. 11/13/23 -?-?-?-?-?-?-?-?-?-?-?-?- 21w 2d 162 lb (+13 lb) 124/70 Negative -?-?-?-?-?-?-?-?-?-?-?-?- Negative 146 21 -?-?-?-?-?-?-?-?-?-?-?-?- kw- no vb/crampi ng. good fm. normal anatomy US. 12/14/23 -?-?-?-?-?-?-?-?-?-?-?-?- 25w 5d 162 lb 2 oz (+13 lb 2 oz) 108/63 Negative -?-?-?-?-?-?-?-?-?-?-?-?- Negative 140 25 -?-?-?-?-?-?-?-?-?-?-?-?- SM- no vb lof go od fm no regular ctx 12/26/23 -?-?-?-?-?-?-?-?-?-?-?-?- 27w 3d 163 lb (+14 lb) 101/62 Negative -?-?-?-?-?-?-?-?-?-?-?-?- Negative 146 26 -?-?-?-?-?-?-?-?-?-?-?-?- MH-No VB, LOF. G ood FM. 28 wk labs, larc. Does have poison ted, calamine lotion ok 01/09/24 -?-?-?-?-?-?-?-?-?-?-?-?- 29w 3d 196 lb (+47 lb) 100/65 Negative -?-?-?-?-?-?-?-?-?-?-?-?- Negative 140 30 -?-?-?-?-?-?-?-?-?-?-?-?- SM- no vb lof go od fm no regular ctx 01/22/24 -?-?-?-?-?-?-?-?--?-?-?-?- 31w 2d 170 lb (+21 lb) 99/62 Negative -?-?-?-?-?-?-?-?-?-?-?-?- Negative 135 27 -?-?-?-?-?-?-?-?-?-?-?-?- JV- measuring sm all and has UC. will order growth ultrasound. no complaints. 02/08/24 -?-?-?-?-?-?-?-?-?-?-?-?- 33w 5d 176 lb (+27 lb) 107/69 Negative -?-?-?-?-?-?-?-?-?-?-?-?- Negative 130 30 -?-?-?-?-?-?-?-?-?-?-?-?- KW- had normal g adolfo washburn. no vb/lof/ctx. good fm. 02/19/24 -?-?-?-?-?-?-?-?-?-?-?-?- 35w 2d 176 lb 2 oz (+27 lb 2 oz) 113/71 Negative -?-?-?-?-?-?-?-?-?-?-?-?- Negative 145 33 Breech -?-?-?-?-?-?-?-?-?-?-?-?- JV- growth scan normal. breech presentation with normal ANTONOI> likely will set up version if still breech next visit. (to be performed at 37 weeks.) we discussed this briefly. 03/01/24 -?-?-?-?-?-?-?-?-?-?-?-?- 36w 6d 177 lb (+28 lb) 113/74 Negative -?-?-?-?-?-?-?-?-?-?-?-?- Negative 140 35 Breech 0 -?-?-?-?-?-?-?-?-?-?-?-?- SM- still breech will setup for ecv next week no vb lof good fm nor egualr ctx NST FHR Rate Baby A Baseline: 130 Variability:: Moderate Accelerations:: 15 x 15 Decelerations:: None NST Reactive:: Yes FHR Category:: Category I Uterine Activity:: no regular ROS Constitutional Constitutional: Reports systems reviewed and no addt'l complaints, except as documented ENT HEENT: Reports systems reviewed and no addt'l complaints, except as documented Cardiovascular Cardiovascular: Reports systems reviewed and no addt'l complaints, except as documented Respiratory/Chest Respiratory/Chest: Reports systems reviewed and no addt'l complaints, except as documented Gastrointestinal Gastrointestinal: Reports systems reviewed and no addt'l complaints, except as documented and nausea; Denies abdominal pain Genitourinary Genitourinary: Reports systems reviewed and no addt'l complaints, except as documented, contractions Details: present and frequency (regular ) and movement Details: present Musculoskeletal Musculoskeletal: Reports systems reviewed and no addt'l complaints, except as documented Integumentary Integumentary: Reports as per HPI Neurologic Neurologic: Reports systems reviewed and no addt'l complaints, except as documented Endocrine Endocrinology: Reports systems reviewed and no addt'l complaints, except as documented Vital Signs Vital Signs Vital Signs: 03/04/24 06:46 03/04/24 06:46 03/04/24 06:47 Temperature Temperature Source Pulse Rate 71 Respiratory Rate Blood Pressure 119/65 BP Systolic 119 BP Diastolic 65 Pulse Ox 99 03/04/24 06:47 03/04/24 06:47 03/04/24 06:47 Temperature Temperature Source Temporal Pulse Rate 69 Respiratory Rate 14 Blood Pressure BP Systolic BP Diastolic Pulse Ox 03/04/24 06:47 03/04/24 07:46 03/04/24 07:46 Temperature 97.6 F L Temperature Source Pulse Rate 70 Respiratory Rate Blood Pressure 115/61 BP Systolic 115 BP Diastolic 61 Pulse Ox 03/04/24 07:46 03/04/24 07:46 03/04/24 07:46 Temperature Temperature Source Pulse Rate 70 Respiratory Rate 16 Blood Pressure BP Systolic BP Diastolic Pulse Ox 99 03/04/24 07:46 Temperature 97.5 F L Temperature Source Pulse Rate Respiratory Rate Blood Pressure BP Systolic BP Diastolic Pulse Ox Weight Weight: 176 lb Body Mass Index (BMI) 25.9 Physical Exam Const alert, oriented x3 and healthy appearing Constitutional Narrative: uncomfortable with contractions HEENT normocephalic and moist oral mucous membranes Head and Scalp: atraumatic Neck full ROM, no lymphadenopathy, supple and thyroid normal General: trachea midline Thyroid: thyroid normal Lymph Lymphatic: no lymphadenopathy noted Chest inspection of chest normal Resp normal respiratory effort Cardio regular rate GI normal to inspection, nondistended, normoactive bowel sounds, soft to palpation and non-tender Inspection: gravid external exam normal Bimanual Exam - Vag & Uterus: uterus non-tender Manual OB Exam: estimated gestational size appropriate, presentation breech, dilated, effaced and station Extremity normal to inspection General Extremity: Negative for edema Skin no rashes or lesions noted Neuro deep tendon reflexes 2+ bilaterally Motor Exam: strength 5/5 throughout and clonus absent Psych mental status grossly normal Labs Labs Labs: Blood Type O POSITIVE Antibody Screen NEGATIVE Hct 32.5 % (37-47) L Hgb 11.0 g/dL (12.0-15.0) L Obstetrics Ultrasound Syphilis Total Ab Non-reactive Rubella IgG Antibody Reactive (Nonreactive) Hep Bs Antigen Non-Reactive (Nonreactive) Hepatitis C Antibody Non-Reactive (Nonreactive) Chlamydia DNA (BRITTANY) Negative (Negative) N.gonorrhoeae DNA (BRITTANY) Negative (Negative) HIV 1&2 Antibody Non-Reactive (Nonreactive) Glucose 1 Hr 50 gm 133 mg/dL (70-140) Assessment & Plan (1) Supervision of low-risk : QUALIFIERS: Trimester: second trimester Qualified Code(s): Z34.92 - Encounter for supervision of normal , unspecified, second trimester COMMENT: PRR MORENA 03/23/2024 surprise PC: Ean. : Meir (2) Hx of ulcerative colitis: COMMENT: one flare up in college. x1 flare first month of - now resolved. non medicated. (3) : QUALIFIERS: Weeks of gestation: 36 weeks Qualified Code(s): Z3A.36 - 36 weeks gestation of COMMENT: NIPT low risk. declined carrier ntd testing,nl anatomy. (4) Breech presentation of fetus: COMMENT: @ 33 week US PLAN: Plan proceed with ECV.
--- NOTE | 2024-03-04 08:07 | PCM.OP.BLANK ---
Problems Associated Problem List Diagnoses (1) Hx of ulcerative colitis: (2) Supervision of low-risk : (3) : Operative Report Preprocedure diagnosis: Breech presentation Post procedure diagnosis: Vertex presentation Procedure: External cephalic version Surgeon: Isabella Stoner EBL: None Complications: None Anesthesia: None Special medications: Terbutaline Seizure details: The fetus was found to be in breech presentation informed by ultrasound. Patient had an IV in place, normal amniotic fluid, no contraindications to a vaginal delivery, and reactive nonstress test prior to the procedure. Patient was placed in the dorsal supine position after the terbutaline was given. Ultrasound gel was applied to the patient's abdomen and using constant upward pressure to elevate the buttocks out of the pelvic inlet constant pressure was applied to the buttocks to lift the baby out of the pelvis, and gentle pressure applied to the side of the head to encourage turning, and based on the direction the infeant seemed to want to turn, to encourage a backward roll of the fetus. Constant pressure was applied and slowly the was converted to a vertex presentation. Bedside ultrasound was used to confirm vertex presentation and reassuring heart rate. Patient was replaced on the NST and monitored for two hours to assure reassuring status. No complications. Procedures Urinary/Genital [id number]: [id number] ECV
[2024-03-04 09:05] VITALS: BP 110/59; PULSE 67; RESP 16; TEMP 36.8; O2SAT 100
== END 2024-03-04 09:57 | disposition home or self-care (01) ==
LOC: WPOUT 06:36 → WP 06:36
PROVIDERS: PCP Internal Medicine; Referring Provider Obstetrics & Gynecology; Visit Provider Obstetrics & Gynecology
DX: O32.1XX0 Maternal care for breech presentation, not applicable or unspecified (principal); Z3A.36 36 weeks gestation of pregnancy
CPT/HCPCS: 59025; 59050; 59412; 76815; 85025; 86900; 86901; 96372; 99221; G0378

== ENCOUNTER → 2024-03-18 | Outpatient (CLI) | payer OTHER, SELFPAY ==
--- NOTE | 2024-03-18 17:58 | US_ITS ---
EXAM: US SECOND OR THIRD TRIMESTER , TRANSABDOMINAL CLINICAL INDICATION: GROWTH TECHNIQUE: Transabdominal obstetrical ultrasound of the maternal pelvis and a second or third trimester with image documentation. COMPARISON: February 01, 2024 at 32 weeks 5 days clinical EGA33 weeks 2 days sonographic GA. FINDINGS: FETUS: HEART RATE: 155 bpm. PRESENTATION: Cephalic. PLACENTA: Grade 3, posterior. No placenta previa. No abruption. AMNIOTIC FLUID: Unremarkable. 4 quadrant ANTONIO 12.6 cm, largest vertical pocket 6.3 cm. ANATOMY: Anatomic survey not performed. BIOMETRICS GESTATIONAL AGE: 39 weeks 2 days. MORENA: April 03, 2024. EFW: 2987 g +/- 448 g, or 14th percentile. Weight was previously 46 percentile. BPD: 37 weeks 4 days. HC: 39 weeks 6 days. AC: 36 weeks 3 days. FL: 35 weeks 6 days. MATERNAL: UTERUS: Unremarkable. No myometrial mass. CERVIX: Not seen. ADNEXA: Not seen. FREE FLUID: None. RATIOS: Standard ratios are within normal limits to borderline. Borderline increased head circumference to abdominal circumference ratio of 1.06, borderline upper value. US/OB Limited With Biometrics IMPRESSION: Single live intrauterine . Cephalic. Sonographic age 39 weeks 2 days. Reported clinical EGA is 37 weeks 5 days. No acute complications of identified. Nonvisualized cervix and adnexal structures. Electronically Signed: Yoana Oconnor MD at 3:07 EST ,
== END | disposition home or self-care (01) ==
LOC: US 17:58
PROVIDERS: PCP Internal Medicine; Referring Provider Advanced Practice Midwife; Visit Provider Advanced Practice Midwife
DX: Z34.90 Encounter for supervision of normal pregnancy, unspecified, unspecified trimester (principal)
CPT/HCPCS: 76816

== ENCOUNTER 2024-03-19 09:34 | Inpatient (IN) | payer OTHER, SELFPAY ==
[2024-03-19] VITALS (22 sets, daily range): BP systolic 108–142; BP diastolic 54–86; PULSE 66–95; RESP 16–18; TEMP 36.1–36.7; O2SAT 96–100; BMI 27.1
[2024-03-19 10:06] LABS: Absolute Lymphocyte Count 1.69 X10^3/uL (0.83-4.51); Absolute Neutrophil Count 5.4 X10^3/uL (2.0-7.7); Basophil# 0.03 X10^3/uL; Basophil% 0.4 % (0-1); Eosinophil# 0.03 X10^3/uL; Eosinophils% 0.4 % (0-5); Hematocrit 33.7 % (37-47); Hemoglobin 11.3 g/dL (12.0-15.0); Lymphocyte # 1.69 X10^3/ul (0.83-4.51); Lymphocyte % 22.1 % (19-41); Mean Corp Hgb Conc 33.5 g/dL (32-36); Mean Corpuscular Hgb 28.4 pg (27.0-32.0); Mean Corpuscular Volume 84.7 fL (81-99); Mean Platelet Vol. 10.8 fl (6.2-12.0); Monocyte# 0.46 X10^3/uL; NRBC Flagged by Analyzer 0 % (0-5); Neutrophil % 70.6 % (47-70); Platelet Count 208 K/mm3 (150-450); RBC Distribution Width CV 12.7 % (11.6-14.6); RBC Distribution Width SD 38.5 fl (35.1-43.9); Red Blood Count 3.98 M/mm3 (4.2-5.4); White Blood Count 7.7 K/mm3 (4.4-11.0)
[2024-03-19] MEDS: Oxytocin 15 Units/NS 250ml 15 UNITS/250 ML IV.SOLN 2 UNITS IV (10:45)
[2024-03-19] MEDS: 0.9% Saline Lock 10 ML Syringe IV (10:51)
[2024-03-19] MEDS: Lactated Ringers 1,000 ML 50 ML IV (10:53)
[2024-03-19 10:58] LABS: Syphilis Antibodies Non-reactive
[2024-03-19] MEDS: Lactated Ringers 1,000 ML 999 ML IV (18:01)
[2024-03-19] MEDS: Lidocaine 1% (20 ml mdv) 20 ML Vial INFILT (18:20)
[2024-03-19] MEDS: Oxytocin 15 Units/NS 250ml 15 UNITS/250 ML IV.SOLN 83 UNITS IV (18:40)
[2024-03-19] MEDS: Ibuprofen 600 MG Tablet PO (19:09)
[2024-03-20 04:02] VITALS: BP 95/50; PULSE 65; PULSE 66; RESP 14; O2SAT 97
[2024-03-20] MEDS: Ibuprofen 600 MG Tablet PO (06:25)
[2024-03-20 08:30] VITALS: BP 106/60; PULSE 60; RESP 14; TEMP 36.5; O2SAT 97
[2024-03-20 11:23] VITALS: BP 102/57; PULSE 68; PULSE 70; RESP 16; TEMP 36; O2SAT 97
[2024-03-20 16:18] VITALS: BP 110/67; PULSE 82; RESP 16; TEMP 36; O2SAT 98
[2024-03-20 16:19] VITALS: BP 110/67; PULSE 73; PULSE 82; O2SAT 98
[2024-03-20 19:42] VITALS: RESP 16
== END 2024-03-20 20:04 | disposition home or self-care (01) | DRG 806 ==
PROVIDERS: Admitting Provider Advanced Practice Midwife; PCP Internal Medicine; Visit Provider Advanced Practice Midwife
DX: O36.5930 Maternal care for other known or suspected poor fetal growth, third trimester, not applicable or unspecified (principal); Z37.0 Single live birth; K51.90 Ulcerative colitis, unspecified, without complications; O70.0 First degree perineal laceration during delivery; Z3A.39 39 weeks gestation of pregnancy; O99.62 Diseases of the digestive system complicating childbirth
CPT/HCPCS: 59025; 59050; 85025; 86780; 86850; 86900; 86901; 99221; J7120; A4216; G0378

== ENCOUNTER → 2024-09-23 | Outpatient (CLI) | payer OTHER, SELFPAY ==
--- NOTE | 2024-09-23 14:21 | US_ITS ---
PROCEDURE: PELVIC W/ TRANSVAGINAL 09/23/2024 REASON FOR EXAM: CONFIRM IUD PLACEMENT 2 day history of bleeding. TECHNIQUE: Transabdominal pelvic ultrasound COMPARISON: None FINDINGS: Measurements: Uterus: 7.5 cm x 4.8 cm x 2.9 cm with a volume of 54.11 mL Endometrial Thickness: 2.4 mm. The IUD is seen within the fundal portion of the endometrium. Right Ovary: 3 cm x 1.6 cm x 1.9 cm with a volume of 54.11 mL. Left Ovary: 3 cm x 2.2 cm x 1.5 cm with a volume of 4.85 mL. Uterus: Unremarkable Endometrium: The IUD is seen within the fundal portion of the endometrium. Right ovary: Normal size and echotexture. Left ovary: Normal size and echotexture. Other: No large pelvic mass identified. US/Pelvic w/ Transvaginal IMPRESSION: The IUD is seen within the fundal portion of the endometrium. Reading Location: [id number]
== END | disposition home or self-care (01) ==
LOC: US 14:19
PROVIDERS: PCP Internal Medicine; Referring Provider Nurse Practitioner Women's Health; Visit Provider Nurse Practitioner Women's Health
DX: N92.1 Excessive and frequent menstruation with irregular cycle (principal); Z97.5 Presence of (intrauterine) contraceptive device
CPT/HCPCS: 76830; 76856